=== PATIENT | male | born 1960 | race Caucasian/White ===

== ENCOUNTER 2022-09-13 21:37 | Emergency (ER) | payer OTHER, SELFPAY ==
[2022-09-13 21:42] VITALS: BP 130/86; PULSE 82; RESP 16; TEMP 36.7; O2SAT 98
[2022-09-13 21:45] VITALS: RESP 16; O2SAT 98
[2022-09-13] MEDS: predniSONE 10 MG TABLET 50 MG PO (22:12)
--- NOTE | 2022-09-13 22:13 | ED.GENADULT ---
HPI - General Adult General Chief complaint: Unspecified Complaint, Adult Stated complaint: gout Time Seen by Provider: 09/13/22 21:40 Source: patient Mode of arrival: ambulatory Limitations: no limitations History of Present Illness HPI narrative: 62-year-old male well known to me with a notable history of prior gout presents with a flare up of gout in the right 5th MTP joint. He has had flare-ups in this area in the past. I evaluated him in clinic about 6 months ago, uric acid levels and creatinine were normal at that time. The decision was made going on allopurinol would not be more beneficial. His symptoms improved markedly within 24 hours on prednisone, he continued it for the 5 days as recommended and symptoms have not returned since that time. Pain is constant and achy, becomes sharp with standing and with movement. Fifth MTP is red, hot and swollen. No trauma nor injury. He is systemically feels well, no fevers, no body aches, no other systemic worries. He has no other acute concerns today. Has not tried any other interventions to help with his pain. Past medical history is notable for what sounds like pericarditis this year after an ablation, seem to respond well colchicine per his description. He otherwise has a notable history of prior gout, AFib, hyperlipidemia. Medications are reviewed, consistent with known previous prescriptions. No recent surgeries. 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 ROS is notable for no other generalized, musculoskeletal, neurological, cardiovascular, endocrine concerns today. Related Data Home Medications Medication Instructions Recorded Confirmed apixaban 5 mg tablet (Eliquis) 5 mg PO 05/15/22 05/15/22 rosuvastatin 20 mg tablet 20 mg PO 05/15/22 05/15/22 sildenafil (pulm.hypertension) 20 20 mg PO 05/15/22 05/15/22 mg tablet Previous Rx's Medication Instructions Recorded azithromycin 250 mg tablet See Rx Instructions PO .COMPLEX #6 05/15/22 tabs codeine 10 mg-guaifenesin 100 mg/5 10 ml PO Q4-6H PRN cough #120 mL 05/15/22 mL oral liquid (Guaifenesin AC) prednisone 20 mg tablet 40 mg PO DAILY PRN #60 tabs 09/13/22 Allergies Allergy/AdvReac Type Severity Reaction Status Date / Time morphine Allergy Unknown Verified 05/02/22 11:03 [facility] Surgical History (Updated 09/13/22 @ 21:46 by Clemencia Garza RN) History of prior ablation treatment Social History Smoking Status: Never smoker How often do you have a drink containing alcohol: monthly or less AUDIT-C Alcohol total score: 1 Non-prescribed substance use: denies use Exam Const: Vital Signs, click to edit/add: Vital Signs - 24 hr 09/13/22 21:42 09/13/22 21:45 Temperature 98.1 F Pulse Rate [Left P ulse Oximeter] 82 Respiratory Rate 16 Respiratory Rate [ Right Foot] 16 Blood Pressure [Ri ght Upper Arm] 130/86 Pulse Oximetry 98 Oxygen Delivery Me thod Room Air Documenting provider has reviewed patient's vital signs: yes Common normals: no apparent distress General appearance: cooperative Eye: Other: Normal gaze and visual tracking Cardio: Other: Peripheral pulses seem regular, dorsalis pedis on right. Also with normal capillary refill Extremity: Other: Right ankle with normal range of motion, right 5th MTP joint red, warm, swollen, exquisitely tender. No deformity. Other joints of the foot appear grossly normal with normal range of motion. Normal toenails, no broken skin, trauma or injury. Neuro: Speech: speech normal Motor exam: no movement abnormalities noted Psych: Common normals: speech normal Speech: normal speech Insight: insight good Judgement: judgment good Skin: Common normals: no rashes or lesions noted General skin exam: no rashes or lesions noted Course Vital Signs Vital signs: Initial Vital Signs Temperature 98.1 F 09/13/22 21:42 Temperature Source Temporal Artery Scan 09/13/22 21:42 Pulse Rate 82 09/13/22 21:42 Respiratory Rate 16 09/13/22 21:42 Blood Pressure 130/86 09/13/22 21:42 Blood Pressure Mean 100 09/13/22 21:42 Blood Pressure Position Sitting 09/13/22 21:42 Pulse Oximetry 98 09/13/22 21:42 Oxygen Delivery Method 09/13/22 21:42 Vital Signs Temperature 98.1 F 09/13/22 21:42 Pulse Rate 82 09/13/22 21:42 Respiratory Rate 16 09/13/22 21:42 Blood Pressure 130/86 09/13/22 21:42 Pulse Oximetry 98 09/13/22 21:42 Oxygen Delivery Method 09/13/22 21:42 Temperature 98.1 F 09/13/22 21:42 Pulse Rate 82 09/13/22 21:42 Respiratory Rate 16 09/13/22 21:45 Blood Pressure 130/86 09/13/22 21:42 Pulse Oximetry 98 09/13/22 21:42 Oxygen Delivery Method 09/13/22 21:42 Medical Decision Making MDM Narrative Medical decision making narrative: Reviewed labs from summer, normal uric acid level with normal creatinine. Long documented history of prior gout with good response to prednisone. Recommended that we not repeat the labs, discussed risks and benefits of prednisone in the setting of Eliquis use. Short-term dosing intended for prednisone, benefit outweighs risk. Will dose prednisone 50 mg p.o. x1 and send additional supply of 20 mg of prednisone to complete 40 per day for an additional 4 days with subsequent refills and additional pills in the bottle 4 as needed flares. Discussed appropriate use. Okay to continue Tylenol, ice, elevation. Urgent care or clinic follow-up if not improving in 2 days Discharge Plan Discharge Clinical Impression: Gout attack Patient Disposition: Home, Self-Care Condition: Stable Instructions: Gout (ED) Additional Instructions: As we discussed, based on your previous labs and my previous evaluations of this problem and Clinic, I do not recommend that you go on a long-term medicine to prevent gout. I am glad that the prednisone always seems to improve your symptoms. We have started you on prednisone tonight, this will improve things markedly within 24 hours. I will send a prescription to your pharmacy for prednisone as well. Your likely to have a couple of these flares per year. There is a small chance of interaction with your blood thinners but this is temporary and the benefit greatly outweighs the risk. I do recommend that you continue to take Tylenol 1000 mg every 6 hours as needed for pain, apply ice and elevate as needed. With the prednisone, take 2 pills once daily for an additional 4 days, your next dose will be the early afternoon of the . The medicine may rev you up before bedtime, so try to take your subsequent doses in the afternoon rather than late at night. It is okay to take Tylenol p.m., which is basically just Benadryl or some [id number] melatonin tonight to help you sleep. If her symptoms are not improving markedly in 48 hours, re-evaluate at urgent care or call your clinic physician. The prescription of prednisone will give you a supply to last for multiple flares. Activity Level: Activity as Tolerated Discharge Diet: Regular Prescriptions: New prednisone 20 mg tablet 40 mg PO DAILY PRNQty: 60 1RF Rx Instructions: 2 pills once daily for 5 days as needed for gout flares. No Action rosuvastatin 20 mg tablet 20 mg PO Eliquis 5 mg tablet 5 mg PO Label Comments: STOP ASPIRIN. TAKE 1 TABLET BY MOUTH IN THE MORNING AND 1 IN THE EVENING sildenafil (pulm.hypertension) 20 mg tablet 20 mg PO Label Comments: TAKE 1 TO 5 TABLETS BY MOUTH NEEDED ABOUT 1 HOUR PRIOR TO SEX DO NOT EXCEED 5 TABLETS PER 24 HOURS azithromycin 250 mg tablet See Rx Instructions PO .COMPLEX Qty: 6 0RF Rx Instructions: For 250 mg dose pack: take 500 mg today (day 1), then 250 mg for 4 days (days 2-5) PO codeine-guaifenesin [Guaifenesin AC] 10-100 mg/5 mL liquid 10 ml PO Q4-6H PRN (Reason: cough) Qty: 120 0RF Follow Up/Referrals: Pam Hodge MD [Primary Care Provider] - Stand Alone Forms: [employer] Info Instructions
[2022-09-13 22:21] VITALS: BP 130/86; PULSE 82; RESP 16; TEMP 36.7
[2022-09-13 22:28] VITALS: BP 125/84; PULSE 82; RESP 16; TEMP 36.7; O2SAT 98
== END 2022-09-13 22:21 | disposition home or self-care (01) ==
LOC: ED 22:18
PROVIDERS: Emergency Provider Family Medicine
DX: M10.9 Gout, unspecified (principal)
CPT/HCPCS: 99282; 99283; 99284; J7512

== ENCOUNTER 2022-11-23 09:43 | Outpatient (CLI) | payer OTHER, SELFPAY | END 2022-11-23 09:44 | disposition home or self-care (01) | LOC: OP CLINIC 09:44 | PROVIDERS: PCP Family Medicine; Visit Provider Surgery | DX: Z13.810 Encounter for screening for upper gastrointestinal disorder (principal) | CPT/HCPCS: 43200; J2250; J3010 ==

== ENCOUNTER 2022-11-30 15:17 | Outpatient (CLI) | payer OTHER, SELFPAY | END 2022-11-30 15:18 | disposition home or self-care (01) | LOC: LONREF 15:19 | PROVIDERS: PCP Family Medicine; Visit Provider Family Medicine | DX: Z01.818 Encounter for other preprocedural examination (principal) | CPT/HCPCS: 80048 ==

== ENCOUNTER 2022-12-11 07:23 | Outpatient (CLI) | payer OTHER, SELFPAY ==
--- NOTE | 2022-12-11 10:19 | W.ANESCHARGE ---
Anesthesia Charges Start Date/Time Anesthesia Start Date: 12/11/22 Anesthesia Start Time: 08:25 Stop Date/Time Anesthesia Stop Date: 12/11/22 Anesthesia Stop Time: 08:40
== END 2022-12-11 07:24 | disposition home or self-care (01) ==
LOC: OP CLINIC 07:24
PROVIDERS: PCP Family Medicine; Visit Provider Internal Medicine
DX: K22.70 Barrett's esophagus without dysplasia (principal); K22.89 Other specified disease of esophagus; R13.10 Dysphagia, unspecified
CPT/HCPCS: 43239; 731; 88305; J2405; J2704; J3010

== ENCOUNTER 2023-11-24 14:12 | Outpatient (CLI) | payer MEDICARE, OTHER, SELFPAY | END 2023-11-24 14:13 | disposition home or self-care (01) | LOC: LKVREF 14:13 | PROVIDERS: PCP Family Medicine; Visit Provider Family Medicine | DX: Z01.818 Encounter for other preprocedural examination (principal) | CPT/HCPCS: 80048 ==

== ENCOUNTER 2024-04-19 08:34 | Outpatient (CLI) | payer MEDICARE, OTHER, SELFPAY ==
--- OUTSIDE RECORDS SUMMARY | 2024-04-19 15:21 | XMS_ITS | Clinical Summary ---
Author Organization [facility] Address [address] [place] [address]. [place] [address] Care Team Providers Care Biodiesel Division Manager Name Role Phone No Ref-Primary, Physician Primary Care Provider Allergies Active Allergy Reactions Criticality Noted Date Comments Morphine Nausea and Vomiting 08/23/2020 Medications Medication Sig Dispensed Refills Start Date End Date Status ammonium lactate (AMLACTIN) 12 % external creamIndications:Luis nilton Apply to calluses daily/twice daily as needed. 140 g 1 01/13/2019 Active Additional Information Patient not taking.Reported on 08/05/2020 atorvastatin (LIPITOR) 20 MG tablet daily Active aspirin (ASA) 325 MG tablet Take 325 mg by mouth every 24 hours Active tamsulosin (FLOMAX) 0.4 MG capsule Take 0.4 mg by mouth daily Active rosuvastatin (CRESTOR) 20 MG tablet Take 20 mg by mouth 05/08/2022 Activ e Hospital, Clinic, or Other Facility Administered Medication Ordered Dose Route Frequency Start Date End Date Status triamcinolone (KENALOG-40) injection 40 mgIndications:Chronic pain of right ankle 40 mg 08/05/2020 Active lidocaine 1 % injection 0.5 mLIndications:Chronic pain of right ankle .5 mL 08/05/2020 Active Active Problems No known active problems Social History Tobacco Use Types Packs/Day Years Used Date Smoking Tobacco: Never Smokeless Tobacco: Never Tobacco Cessation:Counseling Given: Yes Adolescent Education Answer Date Record ed Getting School Help Needed Not on file 06/22 Sex and Gender Information Value Date Recorded Sex Assigned at Not on file Gender Identity Not on file Sexual Orientation Not on file Last Filed Vital Signs Vital Sign Reading Time Taken Comments Blood Pressure 118/72 10/08/2022 1:56 PM [employer] Pulse - - Temperature - - Respiratory Rate - - Oxygen Saturation - - Inhaled Oxygen Concentration - - Weight 99.8 kg (220 lb) 10/08/2022 1:56 PM [employer] Height 180.3 cm (5' 11) 10/08/2022 1:56 PM [employer] Body Mass Index 30.68 10/08/2022 1:56 PM [employer] Plan of Treatment Health Maintenance Due Date Last Done Comments ADVANCE CARE PLANNING 1960 ANNUAL REVIEW OF HM ORDERS 1958 CT COLONOGRAPHY 1958 FIT 1958 FLEX SIG 1958 GLUCOSE 1958 LIPID 1958 sDNA (Cologuard) 1958 COLONOSCOPY 1968 COLORECTAL CANCER SCREENING 1968 HIV SCREENING 1973 HEPATITIS C SCREENING 1976 RSV VACCINE ( & 60+) (1 - 1-dose 60+ series) 2018 DTAP/TDAP/TD IMMUNIZATION (2 - Td or Tdap) 07/12/2022 07/12/2012 FALL RISK ASSESSMENT 2023 MEDICARE ANNUAL WELLNESS VISIT 2023 Pneumococcal Vaccine: 65+ Years (1 of 1 - PCV) 2023 COVID-19 Vaccine (3 - season) 2023 01/03/2021, 12/06/2020 PHQ-2 (once per calendar year) 2023 INFLUENZA VACCINE (#1) 2024 , 10/03/2019, 06/06/2019, Additional history exists ZOSTER IMMUNIZATION Completed 04/21/2022, 02/13/2022, 04/17/2013 HPV IMMUNIZATION Aged Out No longer e ligible based on patient's age to complete this topic IPV IMMUNIZATION Aged Out No longer e ligible based on patient's age to complete this topic MENINGITIS IMMUNIZATION Aged Out No l onger eligible based on patient's age to complete this topic RSV MONOCLONAL ANTIBODY Aged Out No l onger eligible based on patient's age to complete this topic Care Teams Biodiesel Division Manager Relationship Specialty Start Date End Date No Ref-Primary, Physician PCP - General 10/08/22
--- OUTSIDE RECORDS SUMMARY | 2024-04-19 15:21 | XMS_ITS | Clinical Summary ---
Author Organization [facility] Address [place], [place] [address] Care Team Providers Care Modeling Agent Name Role Phone Elbert Sloan MD Primary Care Provider [phone] Allergies Active Allergy Reactions Criticality Noted Date Comments Morphine Nausea And Vomiting 08/23/2020 Medications Medication Sig Dispensed Refills Start Date End Date Status acetaminophen (TYLENOL EXTRA STRGTH) 500 mg tablet Take 1,000 mg by mouth every 6 hours if needed. Max acetaminophen dose: 4000mg in 24 hrs. Active docusate (COLACE) 100 mg capsule Take 100 mg by mouth once daily. Active multivitamins-mineral s-lutein (Multivitamin 50 Plus) tab tablet Take 1 Tablet by mouth once daily. Active omeprazole (PRILOSEC-OTC) 20 mg tablet Take 20 mg by mouth once daily. Active aspirin (ECOTRIN) 81 mg enteric coated tablet Take 1 Tablet (81 mg) by mouth once daily. 0 10/15/2022 Active testosterone (AndroGeL) 20.25 mg/1.25 gram (1.62 %) glpm transdermal gelIndications:Low testosterone in male Apply 1 pump (20.25 mg) on dry, clean, hairless skin every morning. To clean, dry, intact skin of the shoulders and upper arms. Do NOT apply to any other parts of the body. 2 g 1 09/07/2023 Active rosuvastatin (CRESTOR) 40 mg tabletIndications:Hyp erlipidemia, unspecified hyperlipidemia type Take 1 Tablet (40 mg) by mouth once daily. 12/27/2023 Active Active Problems Problem Noted Date Diagnosed Date Benign prostatic hyperplasia with urinary obstru ction 08/29/2020 Presence of left artificial knee joint 8 Overview: Last Assessment & Plan: - Received right knee Gel One injection today, tolerated well (see procedure note) - RTC in 6 months for repeat injection if needed Last Assessment & Plan: 58 y.o. male with persistent pain ever since left knee replacement done at OSH. Preop knee xrays fairly benign. Knee pain never relieved after surgery. His inflammatory markers have never been elevated, including today. He did have an aspirate (also at an outside facility) that apparently grew MRSA. I do not think he has a knee infection and would remove this as a diagnosis. I think his ongoing knee pain is from another source completely, which explains why his knee xrays were not as bad as typical prior to surgery and why his pain did not go away after surgery. The most likely candidate is his spine. 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 08/12/2018 Overview: Last Assessment & Plan: - XR spine lumbar ordered, will review images with IR for further recommendations - Refilled gabapentin, may increase to 600 mg TID if needed otherwise take as prescibed DDD (degenerative disc disease), lumbar 12/23/19 18 Lumbar facet arthropathy 12/22/2017 Obstructive sleep apnea of adult 07/27/2012 Closed fracture of shaft of ulna 09/24/2008 Recurrent paroxysmal atrial fibrillation 008 Overview: S/P DCCV 10/17/07 Encounters Date Type Department Care Team Description 04/19/2024 Telephone [facility] [address] [facility] [address] [place] [address] Gem Whipple MD Results (LDL, lipid panel and ALT.) 04/13/2024 9:30 AM CDT Orders Only [facility] [address] [place] [address] Lab, [facility] 04/13/2024 Travel 01/31/2024 Telephone [facility] [address] [facility] [address] [place] [address] Gem Whipple NP Results (Stress echo ) 01/28/2024 9:29 AM CDT - 01/28/2024 11:59 PM CDT Hospital Encounter [facility] [address] [facility] [place] [address] Gem Whipple NP Left arm pain; Ascending aorta dilation (HC); Chest pain, unspecified type 01/28/2024 Travel from Last 3 Months Immunizations Name Administration Dates Next Due Influenza A (H1N1), Inactiva colt (Age >=3 Years) 07/23/2009 Influenza, IIV3 (Age 6-35 mos) 4,05/30/2013,05/26/2012,2010,07/03/2010,06/06/2009 Influenza, IIV3 (Age >=3 years) 07/02/2008,07/06 Influenza, IIV4 07/22/2020, 0,09/22/2018,2016,07/23/2015,07/23/2009 Influenza, Injectable, Mdck, Quadrivalent, W/preservative 06/06/2019 Influenza,CCIIV4 PRESERV FREE 07/23/2016 Tdap 07/12/2012 Zoster (Shingrix-RZV, recombinant) 04/21/2022, Zoster (Zostavax-ZVL, live) 04/17/2013 Family History Medical History Relation Name Comments Genetic Other multiple uncles prostate cancer~mother heart disease Relation Name Status Comments Other Social History Tobacco Use Types Packs/Day Years Used Date Smoking Tobacco: Never Smokeless Tobacco: Never Tobacco Cessation:Counseling Given: No Alcohol Use Standard Drinks/Week Comments Yes 0 (1 standard drink = 0.6 oz pur e alcohol) 3 drinks per week at most Social Connections Answer Date Recorded Frequency of Communication with Friends and Fami ly Not on file 04/21/2022 Sex and Gender Information Value Date Recorded Sex Assigned at Not on file Gender Identity Not on file Sexual Orientation Not on file Obstetrics History Last Filed Vital Signs Vital Sign Reading Time Taken Comments Blood Pressure 112/90 12/27/2023 11:48 AM CDT Pulse 82 12/27/2023 11:48 AM CDT Temperature 36.4 ??C (97.5 ??F) 12/26/2023 12:36 PM C DT Respiratory Rate 20 12/26/2023 12:36 PM CDT Oxygen Saturation 97% 12/27/2023 11:48 AM CDT Inhaled Oxygen Concentration - - Weight 107.5 kg (237 lb) 12/27/2023 11:48 AM CDT Height 180.3 cm (5' 11) 12/27/2023 11:48 AM CDT Body Mass Index 33.05 12/27/2023 11:48 AM CDT Plan of Treatment Upcoming Encounters Date Type Department Care Team (Late st Contact Info) Description 04/28/2024 12:00 PM CDT Office Visit [facility] [address] [place] [phone] Maria Esther Godwin [facility] [address] [place] [address] Health Maintenance Due Date Last Done Comments Depression screening for age 12+ 1970 HIV for age 15-65 1973 Hepatitis C screening for ag e 18-79 1976 Colonoscopy through age 75 2003 Tetanus booster 07/12/2022 07/12/2012 Medicare Wellness for age 65+ 2023 Pneumococcal series for age 65+ (1 of 1 - PCV) 2023 COVID-19 vaccine series (3 - 2022- season) 2023 01/03/2021, 12/06/2020 Influenza for age 65+ 05/21/2024 07/22/2020 , 10/03/2019, 06/06/2019, Additional history exists BMI (ht and wt on same day) for age 18+ 12/26/2024 12/27/2023, 01/28/2023, 10/15/2022, Additional history exists Lipids for age 45-75 04/13/2029 04/13/2024, 12/26/2023, 01/28/2023, Additional history exists Tdap Completed 07/12/2012 Zoster (shingles) series for age 50+ Completed 04/21/2022, 02/13/2022, 04/17/2013 Procedures Procedure Name Priority Date/Time Associated Diagnosis Comments ALT (SGPT) Routine 04/13/2024 9:44 AM CDT Hyperlipidemia, unspecified hyperlipidemia type LIPID PANEL W REFLEX MEASURED LDL Routine 04/13/2024 9:44 AM CDT Hyperlipidemia, unspecified hyperlipidemia type TESTOSTERONE,TOTAL Routine 04/13/2024 9: 44 AM CDT Low testosterone in male HEMATOCRIT Routine 04/13/2024 9:44 AM CDT Low testosterone in male PSA TOTAL (DIAGNOSTIC) Routine 04/13/2024 9:44 AM CDT Benign prostatic hyperplasia, unspecified whether lower urinary tract symptoms present ECHO STRESS EXRCSE W CONTRAST IMAGE ONLY W COLOR W LTD DOPPLER Routine 01/28/2024 10:33 AM CDT Left arm pain Ascending aorta dilation (HC) Chest pain, unspecified type SCAN-STRESS TEST 01/28/2024 12:0 0 AM CDT SCAN-STRESS TEST 01/28/2024 12:0 0 AM CDT from Last 3 Months Results * (ABNORMAL) LIPID PANEL W REFLEX MEASURED LDL (04/13/2024 9:44 AM CDT) CHOLESTEROL,TOTAL 148 100 - 199 mg/dL 04/13/2024 4:42 PM CDT [facility] Comment: Cholesterol, Total Reference Ranges Desirable <200 mg/dL Borderline 200-239 mg/dL High >=240 mg/dL TRIGLYCERIDES 161(H) <150 mg/dL 04/13/2024 4:42 PM CDT [facility] HDL CHOLESTEROL 47 >40 mg/dL 4:42 PM CDT [facility] NON-HDL CHOLESTEROL 101 <145 mg/dl 04/13/2024 4:42 PM CDT [facility] CHOL/HDL RATIO 3.15 <4.50 04/13/2024 4:42 PM CDT [facility] LDL CHOLESTEROL 69 <=130 mg/dL 04/13/2024 4:42 PM CDT [facility] VLDL CHOLESTEROL 32(H) <=30 mg/dL 04/13/2024 4:42 PM CDT [facility] PROVIDER ORDERED STATUS RANDOM 04/13/2024 4:42 PM CDT [facility] Blood BLOOD SPECIMEN / Unknown Venipuncture / Unknown 04/13/2024 9:44 AM CDT 04/13/2024 9:44 AM CDT Gem Whipple NP [facility]MI[facility] [address] [place] [address], [place] * HEMATOCRIT (04/13/2024 9:44 AM CDT) HEMATOCRIT 44.5 37.0 - 53.0 % 04/13/2024 9:48 AM CDT [facility] [place] [place] Blood BLOOD SPECIMEN / Unknown Venipuncture / Unknown 04/13/2024 9:44 AM CDT 04/13/2024 9:44 AM CDT Narrative [facility] [place] [place] - 04/13/2024 9:48 AM CDT This procedure was originally ordered at [facility] Maria Esther KIM HEMATOLOGY [facility] [place] [place] [address] [facility] [place] [address], * ALT (SGPT) (04/13/2024 9:44 AM CDT) Pathologist [facility] [place] ALT (SGPT) 21 10 - 50 IU/L 04/13/2024 4:42 PM CDT [facility] Blood BLOOD SPECIMEN / Unknown Venipuncture / Unknown 04/13/2024 9:44 AM CDT 04/13/2024 9:44 AM CDT Gem Whipple NP CHEMISTRY Performing Organization Address City/[facility]/ZIP Co de Phone Number [facility] [address] [place] [address], * TESTOSTERONE,TOTAL (04/13/2024 9:44 AM CDT) Pathologist [facility] [place] TESTOSTERONE,T OTAL 405.0 ng/dL 04/13/2024 5:59 PM CDT [facility] Blood BLOOD SPECIMEN / Unknown Venipuncture / Unknown 04/13/2024 9:44 AM CDT 04/13/2024 9:44 AM CDT Narrative [facility] - 04/13/2024 5:59 PM CDT ? TESTOSTERONE, TOTAL REFERENCE RANGES Age Range ? Female ?Male ?Units 20-50 years ? 8.4-48.1 ?249.0-836.0 ?? ng/dl 50-999 years ?2.9-40.8 ?193.0-740.0 ?? ng/dl Maria Esther KIM CHEMISTRY Performing Organization Address City/[facility]/ZIP Co de Phone Number [facility] [address] [place] [address], * PSA TOTAL (DIAGNOSTIC) (04/13/2024 9:44 AM CDT) Pathologist [facility] [place] PSA TOTAL (DIAGNOSTIC) 1.58 <4.00 ng/mL 04/13/2024 4:42 PM CDT [facility] Blood BLOOD SPECIMEN / Unknown Venipuncture / Unknown 04/13/2024 9:44 AM CDT 04/13/2024 9:44 AM CDT Narrative [facility] - 04/13/2024 4:42 PM CDT The test method changed on 03/16/2023. If this test has been used for serial monitoring, rebaselining is recommended. Rebaselining consists of 2 measurements, collected 3-6 weeks apart. The [employer] total PSA assay is an electrochemiluminescence immunoassay ECLIA performed on the [employer] Cody e immunoassay analyzers. Values obtained with different assay methods may be different and cannot be used interchangeably. Maria Esther BERNABE CHEMISTRY [facility] [address] [place] [address], [place] * ECHO STRESS EXRCSE W CONTRAST IMAGE ONLY W COLOR W LTD DOPPLER (01/28/2024 10:33 AM CDT) PEAK TR VELOCITY 2.2 m/s LVEDD 5.2 cm EJECTION FRACTION 60 - 65% Anatomical Region Laterality Modality Ultrasound, Ultr asound, Ultrasound, Computed Tomography 01/28/2024 9:55 AM CDT Narrative 01/28/2024 1:11 PM CDT STRESS ECHOCARDIOGRAM FIDENCIO ALMAZAN JR. ? Accession#: ?? [id number] : ?1960 63 years Study Date: ?? 01/28/2024 9:55:08 AM Gender: M ?BP: ? 117/83 mmHg Height: 180.00 cm ?BSA: ?2.27 m? ? ? Weight: 108.00 kg ?Tech: ? THG ? Referring MD: GEM WHIPPLE Site: ? [facility] Reading Location: [facility] Patient Location: Outpatient. Procedure: Stress Echo, Color Doppler, Limited Spectral Doppler and Contrast. Jose stress echo. Indication for study: Left Arm pain, Ascending Aorta Dil;ataion, Chest Pain Cardiac Rhythm: Normal sinus.Study quality: Final Impressions: 1. Maximum stress test with 97.9% of age predicted maximum heart rate achieved. 2. During stress exam the patient developed no significant symptoms. 3. There were no ischemic changes by EKG during stress. 4. Post stress, decreased left ventricular size, increased global systolic function with an estimated EF of >75%. 5. Echo contrast was administered to enhance visualization of all left ventricular segments. 6. Negative stress echo for ischemia. Stress Data: ? HR ?Systolic Diastolic Time Duration Minutes Seconds Baseline 75 bpm ?117 ?83 mmHg ?9 :21 ? Peak ? 151 bpm ?? 184 ?77 mmHg Max Pred HR ?154 % of Max ? 98% ?? Julian Treadmill Score 10 Double Product [id number] Echo Findings:This is a negative stress echo test for ischemia. Post stress, decreased left ventricular size, increased global systolic function with an estimated EF of >75%. LV regional wall motion abnormalities are not present post exercise. EKG:During exercise, the patient developed sinus tachycardia rhythm with normal conduction. There were no ischemic changes by EKG during stress. Exam Protocol:The patient presents with no significant symptoms at baseline. The patient exercised 9 min 21 sec to stage IV according to the Jose stress echo protocol. Test terminated due to Dyspnea. 13.5 METS were achieved. The patient achieved a heart rate of 151 bpm which is 97.9% of maximum predicted heart rate. Maximum systolic blood pressure was 184 [place] [address]. Maximum stress test with 97.9% of age predicted maximum heart rate achieved. The blood pressure response was normal. The patient developed no significant symptoms during the stress exam. Low (less than 1% annual mortality rate) non invasive risk stratification. Exercise stress test Julian Treadmill Score of 10. Chamber Sizes and Function Normal left ventricular size, normal global systolic function with an estimated EF of 60 - 65%. LV regional wall motion abnormalities are not present. The sinus of Valsalva is normal for age/sex/bsa. The ascending aorta is normal for age/sex/bsa. Valves, RV Pressures and Diastolic Function The aortic valve is normal in structure and trileaflet, no stenosis and no regurgitation. The mitral valve is normal in structure, no mitral regurgitation. The tricuspid valve is normal in structure. Tricuspid regurgitation is trace. The tricuspid regurgitant velocity is 2.2 m/s, the estimated right ventricular systolic pressure is 20 mmHg plus right atrial pressure. The pulmonic valve is normal. No pulmonic regurgitation is present on color flow. MEASUREMENTS AND CALCULATIONS 2-D Measurements and LV Function: LVID (d) 5.2 cm LV FS% (2D) 30 % LVID (s) 3.6 cm HR ?75 bpm IVS (d) ??1.0 cm LVPW (d) 1.2 cm Ao Sinus 3.8 cm Asc Ao ?? 3.9 cm LA ? 4.3 cm Tricuspid Valve and estimated PA pressures: TR Vmax 2.2 m/s TR maxG 20 mmHg Contrast documentation: 2.0 ml diluted Definity, lot #[id number] was administered peripherally to enhance visualization of all left ventricular segments. . This study was interpreted by an [facility] accredited facility. ??Final ?? Procedure Note Ricco Mittal MD - 01/28/2024 STRESS ECHOCARDIOGRAM FIDENCIO ALMAZAN JR. : 1960 63 years Study Date: 01/28/2024 9:55:08 AM Gender: M BP: 117/83 mmHg Height: 180.00 cm BSA: 2.27 m? ? ? Weight: 108.00 kg Tech: [facility] Referring MD: GEM WHIPPLE Site: [facility] Reading Location: [facility] Patient Location: Outpatient. Procedure: Stress Echo, Color Doppler, Limited Spectral Doppler andContrast. Jose stress echo. Indication for study: Left Arm pain, Ascending Aorta Dil;ataion, ChestPain Cardiac Rhythm: Normal sinus.Study quality: Final Impressions: 1. Maximum stress test with 97.9% of age predicted maximum heart rateachieved. 2. During stress exam the patient developed no significant symptoms. 3. There were no ischemic changes by EKG during stress. 4. Post stress, decreased left ventricular size, increased globalsystolic function with an estimated EF of >75%. 5. Echo contrast was administered to enhance visualization of all leftventricular segments. 6. Negative stress echo for ischemia. Stress Data: HR Systolic Diastolic Time Duration Minutes Seconds Baseline 75 bpm 117 83 mmHg 9 :21 Peak 151 bpm 184 77 mmHg Max Pred HR 154 % of Max 98% Julian Treadmill Score 10 Double Product [id number] Echo Findings:This is a negative stress echo test for ischemia. Poststress, decreased left ventricular size, increased global systolicfunction with an estimated EF of >75%. LV regional wall motionabnormalities are not present post exercise. EKG:During exercise, the patient developed sinus tachycardia rhythm withnormal conduction. There were no ischemic changes by EKG during stress. Exam Protocol:The patient presents with no significant symptoms atbaseline. The patient exercised 9 min 21 sec to stage IV according to [facility] stress echo protocol. Test terminated due to Dyspnea. 13.5 METS wereachieved. The patient achieved a heart rate of 151 bpm which is 97.9% ofmaximum predicted heart rate. Maximum systolic blood pressure was 184 [place] [address]. Maximum stress test with 97.9% ofage predicted maximum heart rate achieved. The blood pressure response wasnormal. The patient developed no significant symptoms during the stressexam. Low (less than 1% annual mortality rate) non invasive riskstratification. Exercise stress test Julian Treadmill Score of 10. Chamber Sizes and Function Normal left ventricular size, normal global systolic function with anestimated EF of 60 - 65%. LV regional wall motion abnormalities are notpresent. The sinus of Valsalva is normal for age/sex/bsa. The ascendingaorta is normal for age/sex/bsa. Valves, RV Pressures and Diastolic Function The aortic valve is normal in structure and trileaflet, no stenosis and noregurgitation. The mitral valve is normal in structure, no mitralregurgitation. The tricuspid valve is normal in structure. Tricuspidregurgitation is trace. The tricuspid regurgitant velocity is 2.2 m/s, theestimated right ventricular systolic pressure is 20 mmHg plus right atrialpressure. The pulmonic valve is normal. No pulmonic regurgitation ispresent on color flow. MEASUREMENTS AND CALCULATIONS 2-D Measurements and LV Function: LVID (d) 5.2 cm LV FS% (2D) 30 % LVID (s) 3.6 cm HR 75 bpm IVS (d) 1.0 cm LVPW (d) 1.2 cm Ao Sinus 3.8 cm Asc Ao 3.9 cm LA 4.3 cm Tricuspid Valve and estimated PA pressures: TR Vmax 2.2 m/s TR maxG 20 mmHg Contrast documentation: 2.0 ml diluted Definity, lot #[id number] wasadministered peripherally to enhance visualization of all left ventricularsegments. . This study was interpreted by an [facility] accredited facility. Final Gem Whipple NP ECHO ORD * SCAN-STRESS TEST (01/28/2024 12:00 AM CDT) Only the most recent of2 resultswithin the time period is included. Anatomical Region Laterality Modality Ultrasound, Ultr asound, Ultrasound, Computed Tomography Narrative 01/28/2024 12:00 AM CDT Ordered by an unspecified provider. Other Clinical Staff OTHER from Last 3 Months Advance Directives * Full Code (Latest Code Status on File) Date Activated Date Inactivated Comments 05/22/2022 11:37 AM 05/23/2022 4:23 PM Question Answer Comments Code Status Discussion: Reviewed Preferences * Full Code Date Activated Date Inactivated Comments 12/24/2020 7:53 AM 12/25/2020 4:26 PM Question Answer Comments Code Status Discussion: Not Discussed * Full Code Date Activated Date Inactivated Comments 08/28/2020 10:12 AM 08/28/2020 6:18 PM Question Answer Comments Code Status Discussion: Not Discussed Care Teams Modeling Agent Relationship Specialty Start Date End Date Elbert Sloan MD [address] [place] [address] PCP - General Family Practice 01/26/24
--- OUTSIDE RECORDS SUMMARY | 2024-04-19 15:21 | XMS_ITS | Referral Summary ---
Author Organization [facility] Address [address] [place] [address]. [place] [address] Care Team Providers Care Compliance Tester Name Role Phone No Ref-Primary, Physician Primary [...] Comments Blood Pressure 118/72 10/08/2022 1:56 PM PRODUCE SHIPPER Pulse - - Temperature - - Respiratory Rate - - Oxygen Saturation - - Inhaled Oxygen Concentration - - Weight 99.8 kg (220 lb) 10/08/2022 1:56 PM PRODUCE SHIPPER Height 180.3 cm (5' 11) 10/08/2022 1:56 PM PRODUCE SHIPPER Body Mass Index 30.68 10/08/2022 1:56 PM PRODUCE SHIPPER Plan of Treatment Not on file Care Teams Compliance Tester Relationship Specialty Start Date End Date No Ref-Primary, Physician PCP - General 10/08/22
== END 2024-04-19 08:35 | disposition home or self-care (01) ==
LOC: NFLDREF 15:18
PROVIDERS: PCP Family Medicine; Referring Provider Family Medicine; Visit Provider Family Medicine
DX: E29.1 Testicular hypofunction (principal); E78.00 Pure hypercholesterolemia, unspecified; D64.9 Anemia, unspecified; Z13.0 Encounter for screening for diseases of the blood and blood-forming organs and certain disorders involving the immune mechanism
CPT/HCPCS: 80061; 84270; 84402; 84403

== ENCOUNTER 2024-06-04 20:43 | Emergency (ER) | payer MEDICARE, OTHER, SELFPAY ==
[2024-06-04 20:58] VITALS: BP 163/91; PULSE 119; RESP 18; TEMP 37.1; O2SAT 98; BMI 33.2
[2024-06-04 21:23] VITALS: BP 150/75; PULSE 110; RESP 16; TEMP 37.1
--- NOTE | 2024-06-04 21:23 | ED.GENADULT ---
HPI - General Adult General Date Seen: 06/04/24 Chief complaint: Extremity Pain/Injury, Upper Stated complaint: right index finger infection Time Seen by Provider: 06/04/24 20:55 Source: patient, RN notes reviewed and old records reviewed Mode of arrival: ambulatory Limitations: no limitations History of Present Illness HPI narrative: Patient is a 64-year-old male here for evaluation of his left 2nd finger. He has been having problems for couple of days, was seen in clinic originally, diagnosed with a paronychia min started on Keflex. He was seen in urgent care earlier today because he was not improving, he does have a history of gout and was started on prednisone because the thought was maybe he was not getting better because this was actually gout. He presents to the ER tonight saying that the pain is just not improving. No fevers or systemic complaints. No trauma to the finger. Had x-rays today which were unremarkable. Related Data Home Medications ?Medication ?Instructions ?Recorded ?Confirmed sildenafil (pulm.hypertension) 20 20 mg PO 05/15/22 06/04/24 mg tablet aspirin 325 mg tablet 325 mg PO QDAY 11/30/22 06/04/24 omeprazole 20 mg capsule,delayed 20 mg PO .Daily 12/10/22 06/04/24 release testosterone 1 pump topical QDAY 11/24/23 06/04/24 Previous Rx's ?Medication ?Instructions ?Recorded rosuvastatin 40 mg tablet 40 mg PO QDAY #90 tabs 08/20/23 cephalexin 500 mg capsule 500 mg PO TID 7 days #21 caps 06/02/24 prednisone 20 mg tablet 40 mg (2 x 20 mg) PO QDAY 5 days 06/04/24 #10 tabs Allergies Allergy/AdvReac Type Severity Reaction Status Date / Time morphine Allergy Unknown Verified 06/02/24 17:26 [facility] Surgical History S/P TURP ?Z90.79 - Acquired absence of other genital organ(s) (ICD-10) S/P total knee arthroplasty ?Z96.659 - Presence of unspecified artificial knee joint (ICD-10) History of Marie fundoplication (09/03/10) ?Z98.890 - Other specified postprocedural states (ICD-10) History of arthroscopy of knee (12/22/11) ?Z98.890 - Other specified postprocedural states (ICD-10) History of arthroscopic surgery of shoulder ?Z98.890 - Other specified postprocedural states (ICD-10) History of prior ablation treatment ?Z98.890 - Other specified postprocedural states (ICD-10) Status post catheter ablation of atrial fibrillation ?Z98.890 - Other specified postprocedural states (ICD-10) Social History Smoking Status: Never smoker How often do you have a drink containing alcohol: monthly or less AUDIT-C Alcohol total score: 1 Non-prescribed substance use: denies use Little interest or pleasure in doing things: not at all Feeling down, depressed, or hopeless: not at all Exam Narrative: Exam Narrative: Vital signs reviewed, mildly tachycardic, possibly pain related. In general, alert, well-appearing an. Extremities: Examination of the left 2nd finger shows a paronychia, there is a little bit of erythema extending about to the D IP joint on that finger, purulence noted along the eponychium. Const: Vital Signs, click to edit/add: Vital Signs - 24 hr 06/04/24 20:58 Temperature 98.8 F Pulse Rate [Pulse Oximeter] 119 H Respiratory Rate 18 Blood Pressure [Le ft Upper Arm] 163/91 H Pulse Oximetry 98 Oxygen Delivery Me thod Room Air Documenting provider has reviewed patient's vital signs: yes Course Course ED Course: Procedure note: I used a topical anesthetic spray over the area and then incised with a #10 blade. A fair amount of pus was expressed, he tolerated this well, bandage was applied. Would recommend that he continue the Keflex given that there is a little bit of erythema extending out from this. Would expect this to gradually improve over the next 48-72 hours. Return for significant worsening or new symptoms such as fever, chills etcetera. See clinic next week if not noting improvement after 48-72 hours. Vital Signs Vital signs: Initial Vital Signs Temperature 98.8 F 06/04/24 20:58 Temperature Source Temporal Artery Scan 06/04/24 20:58 Pulse Rate 119 H 06/04/24 20:58 Respiratory Rate 18 06/04/24 20:58 Blood Pressure 163/91 H 06/04/24 20:58 Blood Pressure Mean 115 H 06/04/24 20:58 Blood Pressure Position Sitting 06/04/24 20:58 Pulse Oximetry 98 06/04/24 20:58 Oxygen Delivery Method Room Air 06/04/24 20:58 Vital Signs Temperature 98.8 F 06/04/24 20:58 Pulse Rate 119 H 06/04/24 20:58 Respiratory Rate 18 06/04/24 20:58 Blood Pressure 163/91 H 06/04/24 20:58 Pulse Oximetry 98 06/04/24 20:58 Oxygen Delivery Method Room Air 06/04/24 20:58 Temperature 98.8 F 06/04/24 20:58 Pulse Rate 119 H 06/04/24 20:58 Respiratory Rate 18 06/04/24 20:58 Blood Pressure 163/91 H 06/04/24 20:58 Pulse Oximetry 98 06/04/24 20:58 Oxygen Delivery Method Room Air 06/04/24 20:58 Discharge Plan Discharge Clinical Impression: Paronychia of finger Patient Disposition: Home, Self-Care Condition: Improved Instructions: Paronychia (ED) Additional Instructions: Complete your antibiotic as prescribed. Bandage over finger while this heals. For significant worsening redness or swelling, pain, new symptoms such as fever, return at any time. Otherwise anticipate gradual improvement over the next 48-72 hours. Prescriptions: No Action sildenafil (pulm.hypertension) 20 mg tablet 20 mg PO Patient Comments: TAKE 1 TO 5 TABLETS BY MOUTH NEEDED ABOUT 1 HOUR PRIOR TO SEX DO NOT EXCEED 5 TABLETS PER 24 HOURS cephalexin 500 mg capsule 500 mg PO TID 7 Days Qty: 21 0RF aspirin 325 mg tablet 325 mg PO QDAY testosterone 20.25 mg/1.25 gram (1.62 %) gel in metered-dose pump 1 pump topical QDAY Rx Instructions: apply 1 pump amount over max area of ONE upper arm and shoulder prednisone 20 mg tablet 40 mg PO QDAY 5 Days Qty: 10 0RF omeprazole 20 mg capsule,delayed release(DR/EC) 20 mg PO .Daily rosuvastatin 40 mg tablet 40 mg PO QDAY Qty: 90 3RF Follow Up/Referrals: Elbert Sloan MD [Primary Care Provider] - Stand Alone Forms: [facility] Info Instructions
== END 2024-06-04 21:24 | disposition home or self-care (01) ==
LOC: ED 21:18
PROVIDERS: Emergency Provider Emergency Medicine; PCP Family Medicine
DX: L03.011 Cellulitis of right finger (principal)
CPT/HCPCS: 10060; 84550; 99283

== ENCOUNTER 2024-06-09 14:35 | Emergency (ER) | payer MEDICARE, OTHER, SELFPAY ==
[2024-06-09 14:40] VITALS: BP 130/79; PULSE 89; RESP 14; TEMP 36.6; O2SAT 98; BMI 31.4
--- NOTE | 2024-06-09 14:57 | ED.GENADULT ---
HPI - General Adult General Chief complaint: Skin/Abscess/Foreign Body Stated complaint: L pointer finger infection Time Seen by Provider: 06/09/24 14:46 Source: patient Mode of arrival: ambulatory Limitations: no limitations History of Present Illness HPI narrative: 64-year-old male coming in today concerned about paronychia. Patient had paronychia approximately week ago where he had the area indeed and he was put on Keflex. He is still on Keflex today. States that he was doing well until about 12 hours ago when the swelling and pain returned. He denies any systemic symptoms. Related Data Home Medications ?Medication ?Instructions ?Recorded ?Confirmed sildenafil (pulm.hypertension) 20 20 mg PO Q24H 05/15/22 06/09/24 mg tablet aspirin 325 mg tablet 325 mg PO QDAY 11/30/22 06/09/24 omeprazole 20 mg capsule,delayed 20 mg PO .Daily 12/10/22 06/09/24 release testosterone 1 pump topical QDAY 11/24/23 06/09/24 Previous Rx's ?Medication ?Instructions ?Recorded rosuvastatin 40 mg tablet 40 mg PO QDAY #90 tabs 08/20/23 sulfamethoxazole 800 1 tab PO BID 7 days #14 tabs 06/09/24 mg-trimethoprim 160 mg tablet (Bactrim DS) Allergies Allergy/AdvReac Type Severity Reaction Status Date / Time morphine Allergy Unknown Verified 06/02/24 17:26 Review of Systems Status of ROS: Reports: 6 or more systems reviewed and unremarkable except as noted in History and below PFSH PFSH Surgical History S/P TURP ?Z90.79 - Acquired absence of other genital organ(s) (ICD-10) S/P total knee arthroplasty ?Z96.659 - Presence of unspecified artificial knee joint (ICD-10) History of Marie fundoplication (09/03/10) ?Z98.890 - Other specified postprocedural states (ICD-10) History of arthroscopy of knee (12/22/11) ?Z98.890 - Other specified postprocedural states (ICD-10) History of arthroscopic surgery of shoulder ?Z98.890 - Other specified postprocedural states (ICD-10) History of prior ablation treatment ?Z98.890 - Other specified postprocedural states (ICD-10) Status post catheter ablation of atrial fibrillation ?Z98.890 - Other specified postprocedural states (ICD-10) Social History Smoking Status: Never smoker How often do you have a drink containing alcohol: monthly or less AUDIT-C Alcohol total score: 1 Non-prescribed substance use: denies use Little interest or pleasure in doing things: not at all Feeling down, depressed, or hopeless: not at all Exam Narrative: Exam Narrative: Well-nourished well-developed patient in no acute distress. Alert and oriented. Answers questions appropriately. Mood and affect are appropriate. Thoughts are goal oriented and rational. No tangential or magical thinking noted. Patient speaks in full sentences without needing to catch his breath. Patient is not appear ill or toxic. HEENT: Normocephalic atraumatic. Pupils are equally round reactive to light. Extraocular muscles are intact. Conjunctivae are moist without any icterus noted. Moist mucous membranes. Extremities: Patient has paronychia of the 2nd digit on the left hand. He has erythema surrounding the nail but does not extend into the PIP joint. He has a pocket with clear fluid noted along the eponychium. Const: Vital Signs, click to edit/add: Vital Signs - 24 hr 06/09/24 14:40 Temperature 97.9 F Pulse Rate [Femora l] 89 Respiratory Rate 14 Blood Pressure [Ri ght Upper Arm] 130/79 Pulse Oximetry 98 Oxygen Delivery Me thod Room Air Course Course ED Course: Eleven blade was inserted into the pocket, no purulent drainage noted. Vital Signs Vital signs: Initial Vital Signs Temperature 97.9 F 06/09/24 14:40 Temperature Source Temporal Artery Scan 06/09/24 14:40 Pulse Rate 89 06/09/24 14:40 Pulse Rhythm Regular 06/09/24 14:40 Respiratory Rate 14 06/09/24 14:40 Blood Pressure 130/79 06/09/24 14:40 Blood Pressure Mean 96 06/09/24 14:40 Blood Pressure Position Sitting 06/09/24 14:40 Pulse Oximetry 98 06/09/24 14:40 Oxygen Delivery Method Room Air 06/09/24 14:40 Vital Signs Temperature 97.9 F 06/09/24 14:40 Pulse Rate 89 06/09/24 14:40 Respiratory Rate 14 06/09/24 14:40 Blood Pressure 130/79 06/09/24 14:40 Pulse Oximetry 98 06/09/24 14:40 Oxygen Delivery Method Room Air 06/09/24 14:40 Temperature 97.9 F 06/09/24 14:40 Pulse Rate 89 06/09/24 14:40 Respiratory Rate 14 06/09/24 14:40 Blood Pressure 130/79 06/09/24 14:40 Pulse Oximetry 98 06/09/24 14:40 Oxygen Delivery Method Room Air 06/09/24 14:40 Medical Decision Making MDM Narrative Medical decision making narrative: Paronychia. Will change patient's treatment to Bactrim DS p.o. b.i.d. for 7 days. No pus for us to do a wound culture at this time. Return if not improving. Discharge Plan Discharge Clinical Impression: Paronychia Patient Disposition: Home, Self-Care Condition: Stable Additional Instructions: Switch antibiotic and start with your 1st dose this evening. Return to the ER if you feel like you are getting worse over the next 48 hours instead of getting better. Prescriptions: New sulfamethoxazole-trimethoprim [Bactrim DS] 800-160 mg tablet 1 tab PO BID 7 Days Qty: 14 0RF No Action sildenafil (pulm.hypertension) 20 mg tablet 20 mg PO Q24H Patient Comments: TAKE 1 TO 5 TABLETS BY MOUTH NEEDED ABOUT 1 HOUR PRIOR TO SEX DO NOT EXCEED 5 TABLETS PER 24 HOURS aspirin 325 mg tablet 325 mg PO QDAY testosterone 20.25 mg/1.25 gram (1.62 %) gel in metered-dose pump 1 pump topical QDAY Rx Instructions: apply 1 pump amount over max area of ONE upper arm and shoulder omeprazole 20 mg capsule,delayed release(DR/EC) 20 mg PO .Daily rosuvastatin 40 mg tablet 40 mg PO QDAY Qty: 90 3RF Follow Up/Referrals: Elbetr Sloan MD [Primary Care Provider] - Stand Alone Forms: [facility] Info Instructions
--- OUTSIDE RECORDS SUMMARY | 2024-06-09 15:12 | XMS_ITS | Data Portability ---
Author Organization [facility], [facility] Address [address] [place] [address] Care Team Providers Care Web Offset Press Feeder Name Role Phone ALLEN SUH Primary Care Provider Assessment No assessment recorded. Plan of Treatment Reminders Order Date Submit Date Provider Last Modified By Organization Details Last Modified Time Details Appointments None recorded. Lab PSA, serum or plasma 2020 021 LIZET Not available 1 08:57:40 urinalysis, dipstick 2021 022 [email or web address] 1 Not available 2 14:43:00 PSA, serum or plasma 2021 022 [email or web address] 1 Not available 2 14:43:00 urinalysis, dipstick 2022 023 [email or web address] [facility], [address], [place], [address], 3 15:38:49 urinalysis, dipstick 2022 023 ssamb [facility], [address], [place], [address], 3 12:39:06 PSA, serum or plasma 2023 024 [email or web address] [facility], [address], [place], [address], 4 15:58:04 Referral None recorded. Procedures None recorded. Surgeries None recorded. Imaging None recorded. Medication Orders sildenafil (pulmonary hypertensio n) 20 mg tablet 2021 022 [facility], [address] [facility], [place], [address], 2 14:43:07 Gemtesa 75 mg tablet 2021 022 [facility] [address], [address] [facility], [place], [address], 3 15:36:33 sildenafil (pulmonary hypertensio n) 20 mg tablet 2022 023 [facility] [address], [address] [facility], [place], [address], 3 16:49:26 Gemtesa 75 mg tablet 2022 023 [facility] [address], [address] [facility], [place], [address], 3 12:59:36 Patient TargetsNo targets recorded. Patient InstructionsNo instructions recorded. Reason for Referral None Reported. Results Created Date Observation Date Name Description Value Unit Range Abnormal Flag Note LastModifiedBy Organization Detail LastModifiedTime 06/10/2006/10/2021 PSA, serum or plasm a PSA, Total 1.3 ng/mL Not Available [facility] [address], [place], [address], 06/09/2021 16:17:01 12/03/19 22 12/02/2021 PSA, serum or plasm a PSA, Total 1.3ng/ mL Not Available [facility] [address], [place], [address], 12/02/2021 14:42:25 12/03/19 22 12/02/2021 urina lysis , dipst ick Color-Status Yellow Not Available [facility] [address], [place], [address], 12/02/2021 14:41:29 12/03/19 22 12/02/2021 urina lysis , dipst ick Clarity-Stat us Clear Not Available [facility] [address], [place], [address], 12/02/2021 14:41:29 12/03/19 22 12/02/2021 urina lysis , dipst ick Glucose-Stat us Negati ve Not Available [facility] [address], [place], [address], 12/02/2021 14:41:29 12/03/19 22 12/02/2021 urina lysis , dipst ick Bilirubin-St atus Negati ve Not Available [facility] [address], [place], [address], 12/02/2021 14:41:29 12/03/19 22 12/02/2021 urina lysis , dipst ick Ketones-Stat us Negati ve Not Available [facility] [address], [place], [address], 12/02/2021 14:41:29 12/03/19 22 12/02/2021 urina lysis , dipst ick Sp Lattimore-Stat us 1.025 Not Available [facility] [address], [place], [address], 12/02/2021 14:41:29 12/03/19 22 12/02/2021 urina lysis , dipst ick pH-Status 5.5 Not Available [facility] [address], [place], [address], 12/02/2021 14:41:29 12/03/19 22 12/02/2021 urina lysis , dipst ick Urobilinogen -Status 0.2 Not Available [facility] [address], [place], [address], 12/02/2021 14:41:29 12/03/19 22 12/02/2021 urina lysis , dipst ick Nitrates-Sta tus negati ve Not Available [facility] [address], [place], [address], 12/02/2021 14:41:29 12/03/19 22 12/02/2021 urina lysis , dipst ick Blood-Status Trace Not Available [facility] [address], [place], [address], 12/02/2021 14:41:29 12/03/19 22 12/02/2021 urina lysis , dipst ick Leuko-Status Negati ve Not Available [facility] [address], [place], [address], 12/02/2021 14:41:29 12/03/19 22 12/02/2021 urina lysis , dipst ick Specimen Type Voided Not Available [facility] [address], [place], [address], 12/02/2021 14:41:29 10/29/19 23 10/29/2022 urina lysis , dipst ick Color-Status Yellow Not Available [facility] [address], [place], [address], 10/29/2022 15:38:28 10/29/19 23 10/29/2022 urina lysis , dipst ick Clarity-Stat us Clear Not Available [facility] [address], [place], [address], 10/29/2022 15:38:28 10/29/19 23 10/29/2022 urina lysis , dipst ick pH-Status 6.5 Not Available [facility] [address], [place], [address], 10/29/2022 15:38:28 12/08/19 23 12/07/2022 urina lysis , dipst ick Color-Status Yellow Not Available [facility] [address], [place], [address], 12/07/2022 12:38:45 12/08/19 23 12/07/2022 urina lysis , dipst ick Clarity-Stat us Clear Not Available [facility] [address], [place], [address], 12/07/2022 12:38:45 12/08/19 23 12/07/2022 urina lysis , dipst ick pH-Status 6.0 Not Available [facility] [address], [place], [address], 12/07/2022 12:38:45 02/21/20 24 02/21/2024 PSA, serum or plasm a PSA 1.8 ng/mL 0-4.0 NG/mL Not Available [facility] [address], [place], [address], 02/21/2024 15:30:48 06/17/20 21 06/09/2021 bladd er scan (PROC ) No observ ation record ed. BARCODE Not Available 2020 18:19:09 12/10/19 23 12/07/2022 bladd er scan (PROC ) No observ ation record ed. BARCODE Not Available 2022 17:49:01 Result Notes None recorded. Problems Name Problem SNOMED Code Status Onset Date Resolution Date Notes Provider Name and Address Organization Details Recorded Time Prostate specific antigen above reference range 479801063 Completed 202006/09/2021 Daphney patrikc [place] - [facility] 16:16:23 Benign prostatic hyperplas ia with outflow obstructi on 110590703 Active 2020 Daphney patrick [facility] 1 16:16:33 Obstructi ve sleep apnea of adult 228540862119 3 Active 2011 Sánchez patrick [facility] 4 15:29:43 Degenerat ion of lumbar intervert ebral disc 06173172 Active 2017 Sánchez patrick [facility] 4 15:29:43 Arthropat hy of lumbar facet joint 774779127 Active 2017 Mendez Henri patrick [facility] 4 15:29:43 Atrial fibrillat ion 67540777 Active 2007 Mendez Henri patrick [facility] 4 15:29:43 Problem Notes None recorded. Procedures Surgical History Date Name Laterality Status Provider Name and Address Organization Details Recorded Time 02/21/20 24 MANAGER OF ORGANIZATIONAL DEVELOPMENT/blood draw completed Sánchez Álvarez [facility] 02/21/2024 15:30:42 12/08/19 23 Bladder Scan completed Ricco White [facility] 12/07/2022 12:38:40 10/29/19 23 Bladder Scan completed Rhina Kline PA-C [address], [address], [facility] 10/29/2022 15:51:07 12/03/19 22 Bladder Scan completed Liz Boyd [facility] 12/02/2021 14:43:15 12/03/19 22 Blood Draw/MANAGER OF ORGANIZATIONAL DEVELOPMENT/PSA RESULTS completed Liz Boyd [facility] 12/02/2021 14:50:43 06/09/20 21 Bladder Scan completed Daphney Pak [facility] 06/09/2021 16:16:56 03/31/20 21 Bladder Scan completed Jessica Oconnor [facility] 03/31/2021 16:40:16 01/29/20 21 Bladder Scan completed Mt Marroquin MD [address], [place], [address], [facility] 01/28/2021 15:53:39 12/25/19 21 TRANSURETHRAL RESECTION OF PROSTATE (SURG) completed Magdalena Ray [facility] 12/25/2020 08:36:37 12/25/19 21 TRANSURETHRAL RESECTION OF PROSTATE (SURG) completed Eri Currie [facility] 12/26/2020 09:51:51 12/04/19 21 Cystoscopy- male completed Mt Marroquin MD [address], [place], [address], [facility] 12/03/2020 10:19:56 11/30/19 21 Bladder Scan completed Liz Boyd [facility] 11/29/2020 15:05:15 06/06/20 20 Cystoscopy- male completed Magan Montejo MD [address], [place], [address], [facility] 06/06/2020 17:43:19 02/15/20 19 Colonoscopy completed Francisca Strong [facility] 06/24/2021 15:03:44 05/09/20 07 Colonoscopy completed Magdalena Ray [facility] 2021 09:27:33 Imaging Results Imaging Date Name Status LastModified by Organiz ation Details LastModified Time 06/09/2021 bladder scan (PROC) completed BARCODE Information not available 06/17/2021 18:19:09 12/07/2022 bladder scan (PROC) completed BARCODE Information not available 12/09/2022 17:49:01 Procedure Notes None recorded. Medical Equipment None Reported. Allergies No known drug allergies Medications Name Sig Start Date Stop Date Status Note LastModified by Organization Details LastModified Time tolterodine ER 2 mg capsule,ext ended release 24 hr TAKE 1 CAPSULE BY MOUTH ONCE DAILY 03/31 completed Not Available Not Available Not Available cyclobenzap rine 10 mg tablet TAKE 1 TABLET BY MOUTH THREE TIMES DAILY NEEDED 12/02 completed Not Available Not Available Not Available acetaminoph en 325 mg tablet 0 mg by oral route. 2020 active Not Available Not Available Not Avai lable oxybutynin chloride ER 15 mg tablet,exte nded release 24 hr Take 1 tablet every day by oral route for 30 days. 10/29 completed Not Available Not Available Not Available doxycycline hyclate 100 mg capsule TAKE 1 CAPSULE BY MOUTH TWICE DAILY 02/20 completed Not Available Not Available Not Available atorvastati n 20 mg tablet TAKE 1 TABLET BY MOUTH ONCE DAILY AT BEDTIME 12/02 completed Not Available Not Available Not Available oxybutynin chloride ER 10 mg tablet,exte nded release 24 hr 03/31 completed Not Available Not Available Not Available azithromyci n 250 mg tablet TAKE 2 TABLETS BY MOUTH ON DAY 1, AND 1 TABLET DAILY ON DAYS 2-5 10/29 completed Not Available Not Available Not Available aspirin 325 mg tablet Take 1 tablet every day by oral route. active Not Available Not Available No t Available hydrocodone 5 mg-acetamin ophen 325 mg tablet TAKE 1 TABLET BY MOUTH EVERY 4 TO 6 HOURS NEEDED FOR PAIN 02/20 completed Not Available Not Available Not Available ondansetron HCl 4 mg tablet TAKE 1 TABLET BY MOUTH EVERY 6 HOURS NEEDED 02/20 completed Not Available Not Available Not Available prednisone 20 mg tablet TAKE 1 TABLET BY MOUTH TWICE DAILY 02/20 completed Not Available Not Available Not Available tramadol 50 mg tablet TAKE 1 TABLET BY MOUTH EVERY 6 HOURS NEEDED FOR BREAKTHRO UGH PAIN 02/20 completed Not Available Not Available Not Available acetaminoph en 500 mg tablet 1000 mg by oral route. active Not Available Not Available No t Available ketorolac 10 mg tablet TAKE 1 TABLET BY MOUTH 4 TIMES DAILY FOR PAIN FOR 4 DAYS . DO NOT EXCEED 4 PER 24 HOURS 02/20 completed Not Available Not Available Not Available terbinafine HCl 250 mg tablet TAKE 1 TABLET BY MOUTH ONCE DAILY 10/29 completed Not Available Not Available Not Available aspirin 325 mg tablet,neena yed release 325 mg by oral route. 12/24 completed Not Available Not Available Not Available tamsulosin 0.4 mg capsule TAKE 2 CAPSULES BY MOUTH ONCE DAILY 03/31 completed Not Available Not Available Not Available phenazopyri dine 100 mg tablet TAKE 1 TABLET BY MOUTH THREE TIMES DAILY NEEDED FOR 10 DAYS 12/02 completed Not Available Not Available Not Available cephalexin 500 mg capsule TAKE 1 CAPSULE BY MOUTH EVERY 6 HOURS UNTIL GONE AFTER SURGERY 02/20 completed Not Available Not Available Not Available indomethaci n 50 mg capsule 03/31 completed Not Available Not Available Not Available docusate sodium 100 mg capsule 100 mg by oral route. active Not Available Not Available No t Available hydroxyzine HCl 25 mg tablet TAKE 1 TABLET BY MOUTH 4 TIMES DAILY WITH YOUR OXYCODONE NEEDED 02/20 completed Not Available Not Available Not Available codeine 10 mg-guaifene sin 100 mg/5 mL oral liquid TAKE 10 ML BY MOUTH EVERY 4 TO 6 HOURS NEEDED FOR COUGH 10/29 completed Not Available Not Available Not Available mupirocin 2 % topical ointment APPLY OINTMENT TOPICALLY TWICE DAILY IN THE MORNING AND IN THE EVENING (A SMALL AMOUNT) IN BOTH NOSTRILS START ON February active Not Available Not Available No t Available furosemide 20 mg tablet 10/29 completed Not Available Not Available Not Available lorazepam 1 mg tablet 03/31 completed Not Available Not Available Not Available methylpredn isolone 4 mg tablets in a dose pack 12/02 completed Not Available Not Available Not Available colchicine 0.6 mg tablet TAKE 1 TABLET BY MOUTH ONCE DAILY 10/29 completed Not Available Not Available Not Available celecoxib 100 mg capsule TAKE 1 CAPSULE BY MOUTH TWICE DAILY 10/29 completed Not Available Not Available Not Available ondansetron 4 mg disintegrat ing tablet DISSOLVE 1 TABLET IN MOUTH 4 TIMES DAILY NEEDED FOR NAUSEA 02/20 completed Not Available Not Available Not Available oxycodone 5 mg tablet TAKE 1-2 TABLETS BY MOUTH EVERY 4 HOURS NEEDED FOR POST SURGERY PAIN, MAX OF 6 TABLETS PER DAY 02/20 completed Not Available Not Available Not Available rosuvastati n 10 mg tablet Take 10 mg by oral route. 02/20 completed Not Available Not Available Not Available rosuvastati n 20 mg tablet TAKE 1 TABLET BY MOUTH ONCE DAILY 02/20 completed 40mg Not Available Not Available Not Available rosuvastati n 40 mg tablet TAKE 1 TABLET BY MOUTH ONCE DAILY active Not Available Not Available No t Available sildenafil (pulmonary hypertensio n) 20 mg tablet TAKE 1-5 TABLETS BY MOUTH 1 HOUR PRIOR TO SEXUAL ACTIVITY NEEDED. MAX 5 TABLETS IN 24 HOURS 2023 active Not Available Not Available Not Avai lable Lipitor 03/31 completed Not Available Not Available Not Available Prilosec OTC active Not Available Not Available Not Available testosteron e 20.25 mg/1.25 gram per pump act.(1.62 %) transdermal gel APPLY 1 PUMP ON DRY CLEAN HAIRLESS SKIN EVERY MORNING TO CLEAN DRY INTACT SKIN OF THE SHOULDERS AND UPPER ARMS DO NOT APPLY TO ANY OTHER PARTS OF THE BODY active Not Available Not Available No t Available lidocaine 5 % topical ointment 03/31 completed Not Available Not Available Not Available Myrbetriq 50 mg tablet,exte nded release Take 1 tablet every day by oral route. 03/31 completed Not Available Not Available Not Available Eliquis 5 mg tablet STOP ASPIRIN. TAKE 1 TABLET BY MOUTH IN THE MORNING AND 1 IN THE EVENING 10/29 completed Not Available Not Available Not Available Children's Flonase Allergy Relief 50 mcg/actuati on nasal spray,susp 2 {spray}s by nasal route. 12/24 completed Not Available Not Available Not Available Gemtesa 75 mg tablet Take 1 tablet every day by oral route. 2022 active Not Available Not Available Not Avai lable Vitals Date Recorded Body height Body mass index (BMI) Body weight Provider Name and Address Organization Details Last Updated DateTime 10/29/2022 180.34 cm 30.7 kg/m2 24431.32 g Ricco White [facility] 10/29/2022 15:34:11 Date Recorded Body height Body mass index (BMI) Body weight Provider Name and Address Organization Details Last Updated DateTime 12/07/2022 180.34 cm 30.7 kg/m2 10600.32 g Ricco White [facility] 12/07/2022 12:37:46 Date Recorded Body height Body mass index (BMI) Body weight Provider Name and Address Organization Details Last Updated DateTime 02/21/2024 180.34 cm 30.7 kg/m2 50534.32 g Sánchez Álvarez [facility] 02/21/2024 15:29:30 Date Recorded Body height Body mass index (BMI) Body weight Provider Name and Address Organization Details Last Updated DateTime 06/09/2021 180.34 cm 30.7 kg/m2 50054.32 g Daphney Pak [facility] 06/09/2021 16:15:14 Date Recorded Body height Body mass index (BMI) Body weight Provider Name and Address Organization Details Last Updated DateTime 12/02/2021 180.34 cm 30.7 kg/m2 74129.32 g Mt Marroquin MD [address], [place], [address], [facility] 12/02/2021 14:36:40 Social History Question Answer Notes LastModified by Organizat ion Details LastModified Time Tobacco Smoking Status Never Smoker Michael patrick [facility] 03/28/2020 15:50:18 What Is Your Level Of Alcohol Consumption? Occasional Information not available 02/21/2024 What Is Your Level Of Caffeine Consumption? Occasional Information not available 02/21/2024 What Is Your Occupation? [employer] [email or web address] Information not available 03/29/2020 What Was The Date Of Your Most Recent Tobacco Screening? 02/21/2024 Information not available 02/21/2024 Have You Ever Been Counseled For Unhealthy Alcohol Use? No Information not available 02/21/2024 Do You Use Any Illicit Or Recreational Drugs? No Information not available 02/21/2024 Has Tobacco Cessation Counseling Been Provided? No Information not available 02/21/2024 Do You Or Have You Ever Used Any Other Forms Of Tobacco Or Nicotine? No Information not available 02/21/2024 How Many Days In The Past Year Have You Consumed 5 Or More Drinks? 0 Information not available 02/21/2024 Sex: Unknown Functional Status None recorded. Mental Status None recorded. Family History Relationship Description Onset Age of this Age Resolved Age Notes LastModified by Organization Details LastModified Time Father Family history of malignant neoplasm prosta te cancer father , brothe rs, uncles and male cousin s [email or web address] Not available 03/28/2020 15:49:51 Father Family history of Hypertension bothe parent had it [email or web address] Not available 03/28/2020 15:49:15 Medical History Condition Response Sexually Transmitted Infection N Diabetes N Bleeding Disorder N High Blood Pressure N Kidney Stones N Cancer N Lung Disease N Depression N High Cholesterol Y GERD/Acid Reflux Y Heart Disease Y Immunizations Vaccine Type Date Status Provider Name and Address Organization Details Recorded Time zoster recombinant 02/13/2022 completed Tatiana mckeon null, [facility] 09/09/2023 14:09:18 zoster recombinant 04/21/2022 completed Tatiana New eska null, [facility] 09/09/2023 14:09:18 Influenza, MDCK, quadrivalent, PF 07/23/2016 [facility] 14:49:18 COVID-19, mRNA, LNP-S, PF, 100 mcg/0.5mL dose or 50 mcg/0.25mL dose 12/06/2020 [facility] 14:49:18 COVID-19, mRNA, LNP-S, PF, 100 mcg/0.5mL dose or 50 mcg/0.25mL dose 01/03/2021 [facility] 14:49:18 Tdap 07/12/2012 completed [facility] 05/[facility] 14:49:18 zoster live 04/17/2013 [facility] 14:49:18 Influenza, split virus, trivalent, preservative 07/02/2008 [facility] 14:49:19 Influenza, split virus, trivalent, preservative 07/06/2007 completed Wendychamp Smiths null, [facility] 05/21/2023 14:49:19 Influenza, split virus, trivalent, PF 05/26/2012 [facility] 14:49:19 Influenza, split virus, trivalent, PF 05/30/2013 completed [facility] 14:49:19 Influenza, split virus, trivalent, PF 06/06/2009 [facility] 14:49:19 Influenza, split virus, trivalent, PF 06/10/2011 completed Wendy Phelps null, [facility] 05/21/2023 14:49:19 Influenza, split virus, trivalent, PF 07/03/2010 completed Wendy Phelps null, [facility] 05/21/2023 14:49:19 Influenza, split virus, trivalent, PF 07/24/2014 completed Wendy Phelps null, [facility] 05/21/2023 14:49:19 Novel [id number] 07/23/2009 completed Wendy Phelps null, [facility] 05/21/2023 14:49:19 Influenza, split virus, quadrivalent, PF 09/22/2018 completed Wendy Phelps null, [facility] 05/21/2023 14:49:19 Influenza, split virus, quadrivalent, 10/03/2019 completed Wendy Phelps null, [facility] 05/21/2023 14:49:19 Influenza, split virus, quadrivalent, 06/21/2017 completed Wendy Phelps null, [facility] 05/21/2023 14:49:19 Influenza, split virus, quadrivalent, 07/22/2020 completed Wendy Phelps null, [facility] 05/21/2023 14:49:19 Influenza, split virus, quadrivalent, PF 07/23/2009 completed Wendy Phelps null, [facility] 05/21/2023 14:49:19 Influenza, split virus, quadrivalent, 07/23/2015 completed Wendy Phelps null, [facility] 05/21/2023 14:49:19 Past Encounters Encounter ID Performer Location Encounter Start Date Encounter Closed Date Diagnosis/Indication Diagnosis SNOMED-CT Code Diagnosis ICD10 Code [id number] MD HEIDI [facility] [address] [place] [address] 03/28/2020 15:31:23 03/29/2020 12:04:24 Overactive urinary bladder 510701183 N32.81 Lower urin malaika tract symptoms due to benign prostatic hypertrophy 1361087188 9101 N40.1 [id number] MD HEIDI [facility] [address] [place] [address] 06/06/2020 15:33:07 06/07/2020 06:02:27 Lower urinary tract symptoms due to benign prostatic hypertrophy 0044676712 9101 N40.1 [id number] Magan Montejo MD [facility] [address] [place] [address] 06/06/2020 15:33:07 06/07/2020 08:54:22 [id number] Gu[facility] [address] [place] [address] 11/29/2020 11:25:54 12/02/2020 09:23:00 Dysuria 44493031 R30.9 [id number] Mt Marroquin MD [facility] [address] [place] [address] 12/03/2020 08:54:19 12/04/2020 11:10:38 Increased frequency of urination 749901099 R35.0 Benign pro static hyperplasia with outflow obstruction 778185131 N40.1 [id number] Mt Marroquin MD [facility] [address] [place], [place] [address] 01/28/2021 15:31:38 01/29/2021 10:32:41 Lower urinary tract symptoms due to benign prostatic hypertrophy 6960007679 9101 N40.1 Increased frequency of urination 253846707 R35.0 [id number] Mt Marroquin MD [facility] [address] [place], [place] [address] 03/31/2021 16:11:30 04/02/2021 09:34:47 Benign prostatic hyperplasia 571492011 N40.1 Urgent reuben luis to urinate 67816910 R39.15 [id number] Mt Marroquin MD [facility] [address] [place], [place] [address] 06/09/2021 16:01:41 06/10/2021 13:42:00 Prostate specific antigen above reference range 143251686 R97.20 Benign pro static hyperplasia with outflow obstruction 783328028 N40.1 [id number] Mt Marroquin MD [facility] [address] [place], [place] [address] 12/02/2021 14:25:46 12/03/2021 11:43:52 Benign prostatic hyperplasia with outflow obstruction 084893798 N40.1 Erectile dysfunction 860 539475 F52.21 Urge incon tinence of urine 83466424 N39.41 [id number] Rhina Kline PA-C [facility] [address] [place] [address] 10/29/2022 15:24:16 11/02/2022 10:19:45 Benign prostatic hyperplasia with outflow obstruction 649196364 N40.1 Erectile dysfunction 860 275758 F52.21 Urge incon tinence of urine 72268792 N39.41 [id number] Mt Marroquin MD [facility] [address] [place] [address] 12/07/2022 12:25:35 12/10/2022 14:26:41 Benign prostatic hyperplasia with outflow obstruction 912294378 N40.1 Urgent reuben luis to urinate 73175256 R39.15 [id number] Mt Marroquin MD [facility] [address] [place] [address] 02/21/2024 15:18:47 02/22/2024 10:20:07 Benign prostatic hyperplasia with outflow obstruction 987618388 N40.1 Family his tory of malignant neoplasm of prostate 308984865 Z80.42 Health Concerns Section Related Observation LastModified by Organization Detai ls LastModified Time None Recorded Concern Status LastModified by Organization Details LastModified Time None Recorded Advance Directives Directive None Recorded Payers Encounter Date Sequence Insurance Name Policy Number Policy Guy Covered Member ID Guy Member ID Guarantor Name 06/09/2021 2 [employer] - INDIVIDUAL AND FAMILY (O) [id number] Wojciech Ramirez [id number] Wojciech Ramirez 12/02/2021 2 [employer] - INDIVIDUAL AND FAMILY (O) [id number] 1 Wojciech Ramirez [id number] Wojciech Ramirez 10/29/2022 2 [facility] - INDIVIDUAL AND FAMILY (O) [id number] 1 Wojciech Ramirez [id number] Wojciech Ramirez 12/07/2022 2 [facility] - INDIVIDUAL AND FAMILY (O) [id number] 1 Wojciech Mcnamaranelly [id number] Wojciech Ramirez 02/21/2024 2 [facility] - INDIVIDUAL AND FAMILY (HMO) [id number] 1 Wojciech Ramirez [id number] Wojciech Ramirez 02/21/2024 1 [place] [employer] [facility] Wojciech Ramirez Jr [id number] Wojciech Ramirez Notes Date Note Type Note Provider Name and Address Organization Details Recorded Time 06/09/2021 text/html HPI Notes: 60-year-old male who is status post saline transurethral resection for benign disease December 24, 2020. Patient had previous greenlight laser at the [facility] with Dr. Fleming. Presented to our office with severe penile discomfort, urinary urgency, frequency and very slow stream. Patient symptoms have markedly improved. Pathology was benign. Focal chronic inflammation was noted. Patient's postvoid residual today is 0. Serum PSA 1.3 Mt Marroquin MD [address] [place] [address],[address], [phone], [facility] 06/09/2021 18:16:55 12/02/2021 text/html HPI Notes: 61-year-old male with history of prior greenlight laser at the [facility] with continued obstruction secondary to a ball-valve middle lobe prostate. Status post saline bipolar resection by me. Pain has completely resolved and good force of stream. Continues to have urge and occasional urge incontinence. Has improved after initiating physical therapy for low back issues. PSA remains 1.3. Postvoid 0. Urinalysis trace small blood Mt Marroquin MD [address] [place] [address],[address] [place] [address], [id number], [facility] 12/02/2021 15:37:13 10/29/2022 text/html HPI Notes: 61-year-old male with history of prior greenlight laser at the [facility] with continued obstruction secondary to a ball-valve middle lobe prostate. Status post saline bipolar resection by sc. Pain has completely resolved and good force of stream. Continues to have urge and occasional urge incontinence. Has improved after initiating physical therapy for low back issues. PSA remains 1.3. Postvoid 0. Urinalysis trace small blood 10/28/22: Patient of Dr. Marroquin here for urinary urgency and occasional urge incontinence. Had been doing PT for low back issues with some improvement in his urge incontinence initially. Here today due to worsening urgency and urge incontinence. Dr. Marroquin sent Rx for Gemtesa last year, but patient states he never tried this. Denies gross hematuria, dysuria, fever, or chills. Remains on sildenafil with no issues. UA today negative PVR today 23cc Rhina Kline PA-C [address], [place], [address], [facility] 10/29/2022 16:50:45 12/07/2022 text/html HPI Notes: 61-year-old male with history of prior green light laser at the [facility] with continued obstruction secondary to a ball-valve middle lobe prostate. Patient was also experiencing constant pain subsequent to the procedure. He is now status post saline bipolar resection by me December 24, 2020. Pain has completely resolved and good force of stream. Continues to have urge and occasional urge incontinence. Has improved after initiating physical therapy for low back issues. 10/28/22: Patient of Dr. Marroquin here for urinary urgency and occasional urge incontinence. Had been doing PT for low back issues with some improvement in his urge incontinence initially. Here today due to worsening urgency and urge incontinence. Dr. Marroquin sent Rx for Gemtesa last year, but patient states he never tried this. Denies gross hematuria, dysuria, fever, or chills. Remains on sildenafil with no issues. UA today negative PVR today 23cc Most recent PSA from 1 year ago measured 1.3 Patient has degenerative arthritis in both knees. Prior total knee arthroplasty failed. Currently seeing a new orthopedic surgeon Dr. Denton Barnett with plans to pursue bilateral total knee arthroplasty Mt Marroquin MD [address] [facility] [address], [place], [address], [facility] 12/07/2022 14:06:45 02/21/2024 text/html HPI Notes: 63-year-old gentleman well-known to me. History of BPH and associated obstructive and irritative voiding symptoms. Also family history of prostate cancer. Patient underwent greenlight laser in 2019 at the [facility] which failed to relieve his obstructive symptoms and actually increased his irritative symptoms. He was then seen and followed by Magan Montejo for a period of time before seeing me. He underwent saline bipolar transurethral resection in December 2020 with significant improvement in symptoms. He did have an to continues to have mild urinary urgency but he has not yet initiated Gemtesa. PSA is low and stable at 1.8. He continues to have issues with his knee and is a patient of Dr. Denton Marroquin MD [address] [place] [address],[address], [place], [address], [facility] 02/21/2024 17:23:40
--- OUTSIDE RECORDS SUMMARY | 2024-06-09 15:12 | XMS_ITS | Referral Summary ---
Author Organization [place] Address [address] [place] [address]. [place] [address] Care Team Providers Care Rubber Flap Tuber Machine Operator Name Role Phone No Ref-Primary, Physician Primary [...] Comments Blood Pressure 118/72 10/08/2022 1:56 PM INDUSTRIAL SEWER Pulse - - Temperature - - Respiratory Rate - - Oxygen Saturation - - Inhaled Oxygen Concentration - - Weight 99.8 kg (220 lb) 10/08/2022 1:56 PM INDUSTRIAL SEWER Height 180.3 cm (5' 11) 10/08/2022 1:56 PM INDUSTRIAL SEWER Body Mass Index 30.68 10/08/2022 1:56 PM INDUSTRIAL SEWER Plan of Treatment Not on file Care Teams Rubber Flap Tuber Machine Operator Relationship Specialty Start Date End Date No Ref-Primary, Physician PCP - General 10/08/22
--- OUTSIDE RECORDS SUMMARY | 2024-06-09 15:12 | XMS_ITS | Clinical Summary ---
Author Organization [place] Address [address] [place] [address]. [place] [address] Care Team Providers Care Foreman Shipping Department Name Role Phone No Ref-Primary, Physician Primary [...] Comments Blood Pressure 118/72 10/08/2022 1:56 PM CAR WASH SUPERVISOR Pulse - - Temperature - - Respiratory Rate - - Oxygen Saturation - - Inhaled Oxygen Concentration - - Weight 99.8 kg (220 lb) 10/08/2022 1:56 PM CAR WASH SUPERVISOR Height 180.3 cm (5' 11) 10/08/2022 1:56 PM CAR WASH SUPERVISOR Body Mass Index 30.68 10/08/2022 1:56 PM CAR WASH SUPERVISOR Plan of Treatment Health Maintenance Due Date Last Done Comments ADVANCE CARE PLANNING 1960 ANNUAL REVIEW OF HM ORDERS 1958 CT COLONOGRAPHY 1958 FIT 1958 FLEX SIG 1958 GLUCOSE 1958 LIPID 1958 sDNA (Cologuard) 1958 COLONOSCOPY 1968 COLORECTAL CANCER SCREENING 1968 HEPATITIS C SCREENING 1976 DTAP/TDAP/TD IMMUNIZATION (2 - Td or Tdap) 07/12/2022 07/12/2012 FALL RISK ASSESSMENT 2023 MEDICARE ANNUAL WELLNESS VISIT 2023 Pneumococcal Vaccine: 65+ Years (1 of 1 - PCV) 2023 PHQ-2 (once per calendar year) 2023 COVID-19 Vaccine (3 - 2022- season) 2024 01/03/2021, 12/06/2020 INFLUENZA VACCINE (#1) 2024 , 10/03/2019, 06/06/2019, Additional history exists RSV VACCINE (1 - 1-dose 75+ series) 2033 ZOSTER IMMUNIZATION Completed 04/21/2022, 02/13/2022, 04/17/2013 HPV IMMUNIZATION Aged Out No longer e ligible based on patient's age to complete this topic MENINGITIS IMMUNIZATION Aged Out No l onger eligible based on patient's age to complete this topic RSV MONOCLONAL ANTIBODY Aged Out No l onger eligible based on patient's age to complete this topic Care Teams Foreman Shipping Department Relationship Specialty Start Date End Date No Ref-Primary, Physician PCP - General 10/08/22
--- OUTSIDE RECORDS SUMMARY | 2024-06-09 15:12 | XMS_ITS | Clinical Summary ---
Author Organization [facility] [employer] Address [place], [place] [address] Care Team Providers Care Surgical Territory Manager Name Role Phone Elbert Sloan MD Primary Care Provider [phone] Maria Esther Godwin MBBS Unavailable [phone] Allergies Active Allergy Reactions Criticality Noted Date [...] by mouth once daily. 0 10/15/2022 Active rosuvastatin (CRESTOR) 40 mg tabletIndications:Hyp erlipidemia, unspecified hyperlipidemia type Take 1 Tablet (40 mg) by mouth once daily. 12/27/2023 Active testosterone (AndroGeL) 20.25 mg/1.25 gram (1.62 %) glpm transdermal gelIndications:Low testosterone in male Apply 1 pump (20.25 mg) on dry, clean, hairless skin once daily in the morning. To clean, dry, intact skin of the shoulders and upper arms. Do NOT apply to any other parts of the body. 2 g 1 04/25/2024 Active Active Problems Problem Noted Date Diagnosed Date Benign prostatic hyperplasia with urinary obstru ction 08/29/2020 Presence of left artificial knee joint 8 Overview (12/26/2023): Last Assessment & Plan: - Received right [...] of lumbosacral spine without myelopa thy 08/12/2018 Overview (12/26/2023): Last Assessment & Plan: - XR spine lumbar ordered, will review images with IR for further recommendations - Refilled gabapentin, may increase to 600 mg TID if needed otherwise take as prescibed DDD (degenerative disc disease), lumbar 12/23/19 18 Lumbar facet arthropathy 12/22/2017 Obstructive sleep apnea of adult 07/27/2012 Closed fracture of shaft of ulna 09/24/2008 Recurrent paroxysmal atrial fibrillation 008 Overview (12/05/2007): S/P DCCV 10/17/07 Encounters Date Type Department Care Team Description 04/28/2024 12:00 PM CDT Office Visit [facility] [address] [phone] Maria Esther Godwin MBBS Follow Up (Low testosterone ) 04/28/2024 Travel 04/24/2024 Refill [facility] [address] [phone] Maria Esther Godwin MBBS Refill Request 04/19/2024 Telephone [facility] [address] [place] [address] Gem Cho MD Results (LDL, lipid panel and ALT.) 04/13/2024 9:30 AM CDT Orders Only [facility] [address] [place], [place] [id number] Lab, [facility] 04/13/2024 Travel from Last 3 Months Immunizations Name [...] Sign Reading Time Taken Comments Blood Pressure 122/72 04/28/2024 12:21 PM CDT Pulse 80 04/28/2024 12:21 PM CDT Temperature 36.4 ??C (97.5 ??F) 12/26/2023 1 2:36 PM CDT Respiratory Rate 20 12/26/2023 12:3 6 PM CDT Oxygen Saturation 97% 12/27/2023 11: 48 AM CDT Inhaled Oxygen Concentration - - Weight 106.3 kg (234 lb 6.4 oz) 024 12:21 PM CDT Height 180.3 cm (5' 11) 12/27/2023 11: 48 AM CDT Body Mass Index 32.69 12/27/2023 11:48 AM CDT Plan of Treatment Upcoming Encounters Date Type Department Care Team (Late st Contact Info) Description 05/01/2025 12:00 PM CDT Office Visit [facility] [address] [phone] Maria Esther Godwin MBBS [address] [place] [place] [address] Health Maintenance Due Date Last Done Comments Depression screening for age 12+ 1970 Hepatitis C screening for ag e 18-79 1976 Colonoscopy through age 75 2003 Tetanus booster 07/12/2022 07/12/2012 Medicare Wellness for age 65+ 2023 Pneumococcal series for age 65+ (1 of 1 - PCV) 2023 COVID-19 vaccine series (3 - 2022- season) 2024 01/03/2021, 12/06/2020 Influenza for age 65+ 05/21/2024 [...] unspecified whether lower urinary tract symptoms present from Last 3 Months Results * (ABNORMAL) LIPID PANEL W REFLEX MEASURED LDL (04/13/2024 9:44 AM CDT) CHOLESTEROL,TOTAL 148 100 - 199 mg/dL 04/13/2024 4:42 PM CDT [facility] Comment: Cholesterol, Total Reference Ranges Desirable <200 mg/dL Borderline 200-239 mg/dL High >=240 mg/dL TRIGLYCERIDES 161(H) <150 mg/dL 04/13/2024 4:42 PM CDT [facility] HDL CHOLESTEROL 47 >40 mg/dL 4:42 PM CDT [facility] NON-HDL CHOLESTEROL 101 <145 mg/dl 04/13/2024 4:42 PM CDT [facility] CHOL/HDL RATIO 3.15 <4.50 04/13/2024 4:42 PM CDT [facility] LDL CHOLESTEROL 69 <=130 mg/dL 04/13/2024 4:42 PM CDT [facility] VLDL CHOLESTEROL 32(H) <=30 mg/dL 04/13/2024 4:42 PM CDT [facility] PROVIDER ORDERED STATUS RANDOM 04/13/2024 4:42 PM CDT [facility] Blood BLOOD SPECIMEN / Unknown Venipuncture / Unknown 04/13/2024 9:44 AM CDT 04/13/2024 9:44 AM CDT Gem Cho NP CHEMISTRY [facility] [address] [place] [address], * HEMATOCRIT (04/13/2024 9:44 AM CDT) HEMATOCRIT 44.5 37.0 - 53.0 % 04/13/2024 9:48 AM CDT [facility] Blood BLOOD SPECIMEN / Unknown Venipuncture / Unknown 04/13/2024 9:44 AM CDT 04/13/2024 9:44 AM CDT Narrative [facility] - 04/13/2024 9:48 AM CDT This procedure was originally ordered at [facility]. Maria Esther KIM HEMATOLOGY [facility] [address] [place] [address], * ALT (SGPT) (04/13/2024 9:44 AM CDT) ALT (SGPT) 21 10 - 50 IU/L 04/13/2024 4:42 PM CDT [facility] Blood BLOOD SPECIMEN / Unknown Venipuncture / Unknown 04/13/2024 9:44 AM CDT 04/13/2024 9:44 AM CDT Gem Cho NP CHEMISTRY [facility] [address] [place] [address], * TESTOSTERONE,TOTAL (04/13/2024 9:44 AM CDT) TESTOSTERONE,T OTAL 405.0 ng/dL 04/13/2024 5:59 PM CDT [facility] Blood BLOOD SPECIMEN / Unknown Venipuncture / Unknown 04/13/2024 9:44 AM CDT 04/13/2024 9:44 AM CDT Narrative [facility] - 04/13/2024 5:59 PM CDT ? TESTOSTERONE, TOTAL REFERENCE RANGES Age Range ? Female ?Male ?Units 20-50 years ? 8.4-48.1 ?249.0-836.0 ?? ng/dl 50-999 years ?2.9-40.8 ?193.0-740.0 ?? ng/dl Maria Esther KIM CHEMISTRY [facility] [address] [place] [address], * PSA TOTAL (DIAGNOSTIC) (04/13/2024 9:44 AM CDT) PSA TOTAL (DIAGNOSTIC) 1.58 <4.00 ng/mL 04/13/2024 4:42 PM CDT [facility] Blood BLOOD SPECIMEN / Unknown Venipuncture / Unknown 04/13/2024 9:44 AM CDT 04/13/2024 9:44 AM CDT Narrative [facility] - 04/13/2024 4:42 PM CDT The [...] and cannot be used interchangeably. Maria Esther KIM CHEMISTRY [facility] [address] [place] [address], from Last 3 Months Advance Directives * [...] Code Status Discussion: Not Discussed Care Teams Surgical Territory Manager Relationship Specialty Start Date End Date Elbert Sloan MD [address], [place] [address] PCP - General Family Practice 01/26/24 Maria Esther Godwin MBBS [address] [address] Consulting Physician Endocrinology 06/02/24
== END 2024-06-09 15:11 | disposition home or self-care (01) ==
LOC: ED 15:09
PROVIDERS: Emergency Provider Family Medicine; PCP Family Medicine
DX: L03.012 Cellulitis of left finger (principal)
CPT/HCPCS: 10060; 99283; 99284

== ENCOUNTER 2024-08-25 16:52 | Emergency (ER) | payer MEDICARE, OTHER, SELFPAY ==
[2024-08-25 17:04] VITALS: BP 133/82; PULSE 97; RESP 18; TEMP 37; O2SAT 97; BMI 31.4
--- NOTE | 2024-08-25 17:22 | ED_ITS ---
HPI - General Adult General Chief complaint: Abdominal Pain Stated complaint: pain in rt side Time Seen by Provider: 08/25/24 17:18 History of Present Illness HPI narrative: R side pain that started at 2pm. states feels full and like something catching in there. pain worse with wrong movement. 64-year-old man presenting to the emergency department with concern of right side abdominal pain. Pain particularly exacerbated with movement. Began suddenly around 3 hours, 3-1 /2 hours ago this afternoon. Has had what sounds like URI over the last week with coughing. Thought initially that there was pleuritic pain but this does not seem to be the case. Does not recall any particular injury. Does work [employer]. No rashes. No bowel problems. No personal family history of nephrolithiasis. No difficulty urinating. No hematuria. No rashes. No leg swelling or pain. No coagulopathy noted. Related Data Home Medications ?Medication ?Instructions ?Recorded ?Confirmed sildenafil (pulm.hypertension) 20 20 mg PO Q24H 05/15/22 07/24/24 mg tablet aspirin 325 mg tablet 325 mg PO QDAY 11/30/22 08/25/24 omeprazole 20 mg capsule,delayed 20 mg PO .Daily 12/10/22 08/25/24 release testosterone 1 pump topical QDAY 11/24/23 07/24/24 Previous Rx's ?Medication ?Instructions ?Recorded rosuvastatin 40 mg tablet 40 mg PO QDAY #90 tabs 08/20/23 Allergies Allergy/AdvReac Type Severity Reaction Status Date / Time morphine Allergy Unknown Verified 07/24/24 12:52 Review of Systems Status of ROS: Reports: 6 or more systems reviewed and unremarkable except as noted in History and below PFSH PFSH Surgical History S/P TURP ?Z90.79 - Acquired absence of other genital organ(s) (ICD-10) S/P total knee arthroplasty ?Z96.659 - Presence of unspecified artificial knee joint (ICD-10) History of Mraie fundoplication (09/03/10) ?Z98.890 - Other specified postprocedural states (ICD-10) History of arthroscopy of knee (12/22/11) ?Z98.890 - Other specified postprocedural states (ICD-10) History of arthroscopic surgery of shoulder ?Z98.890 - Other specified postprocedural states (ICD-10) History of prior ablation treatment ?Z98.890 - Other specified postprocedural states (ICD-10) Status post catheter ablation of atrial fibrillation ?Z98.890 - Other specified postprocedural states (ICD-10) Social History Smoking Status: Never smoker Do you use any of these nicotine containing products: None Second hand tobacco smoke exposure: No How often do you have a drink containing alcohol: 2-4 times a month How many standard drinks containing alcohol do you have on a typical day: 1 or 2 AUDIT-C Alcohol total score: 2 Non-prescribed substance use: denies use service: No Exam Narrative: Exam Narrative: Very pleasant. Positive affect. Is breathing easily. Lungs are clear. Breath sounds throughout Neck is supple. No supraclavicular crepitus. Heart in mildly elevated rate in a regular rhythm. Abdomen is soft and tender initially in the right anterolateral rib margin area but on repeat exam I would say seems to be centered more over the inferior anterolateral right ribs. Up position compression testing is negative. I do not see evidence of trauma on his skin. No rash. Well-perfused peripherally without edema. Intense wince-inducing pain with transition. Const: Vital Signs, click to edit/add: Vital Signs - 24 hr 08/25/24 17:04 Temperature 98.6 F Pulse Rate [Pulse Oximeter] 97 Respiratory Rate 18 Blood Pressure [Ri ght Upper Arm] 133/82 Pulse Oximetry 97 Oxygen Delivery Me thod Room Air Documenting provider has reviewed patient's vital signs: yes Course Vital Signs Vital signs: Initial Vital Signs Temperature 98.6 F 08/25/24 17:04 Temperature Source Temporal Artery Scan 08/25/24 17:04 Pulse Rate 97 08/25/24 17:04 Respiratory Rate 18 08/25/24 17:04 Blood Pressure 133/82 08/25/24 17:04 Blood Pressure Mean 99 08/25/24 17:04 Blood Pressure Position Sitting 08/25/24 17:04 Pulse Oximetry 97 08/25/24 17:04 Oxygen Delivery Method Room Air 08/25/24 17:04 Vital Signs Temperature 98.6 F 08/25/24 17:04 Pulse Rate 97 08/25/24 17:04 Respiratory Rate 18 08/25/24 17:04 Blood Pressure 133/82 08/25/24 17:04 Pulse Oximetry 97 08/25/24 17:04 Oxygen Delivery Method Room Air 08/25/24 17:04 Temperature 98.6 F 08/25/24 17:04 Pulse Rate 97 08/25/24 17:04 Respiratory Rate 18 08/25/24 17:04 Blood Pressure 133/82 08/25/24 17:04 Pulse Oximetry 97 08/25/24 17:04 Oxygen Delivery Method Room Air 08/25/24 17:04 Medications Administered Medications: Discontinued Medications Generic Name Dose Route Start Last Admin Trade Name Freq PRN Reason Stop Dose Admin Ibuprofen 800 mg 08/25/24 18:43 08/25/24 18:50 Ibuprofen 400 Mg Tablet PO 08/25/24 18:44 800 mg ONCE ONE Administration Lidocaine 1 patch 08/25/24 17:37 08/25/24 17:44 Lidocaine 5% Patch TRANSDERMA 08/25/24 17:38 1 patch ONCE ONE Administration Protocol Medical Decision Making [facility] Narrative Medical decision making narrative: If does appear to have a high chest wall injury here. I do not think actual intra-abdominal process but could have gallbladder disease/biliary colic by history. Coughing certainly may have precipitated intercostal pain. May have costochondritis. Does not seem to actually be pleuritic. May even have an associated rib fracture. Would start with x-ray of the chest with rib views. Ibuprofen. Trial of a lidocaine patch as well. Chest x-ray dedicated rib views of the right independently reviewed by me did not appear to show any fracture. No pneumothorax. No infiltrate. Radiology over-read below TECHNIQUE: Chest and laterality rib radiographs, 3 views. COMPARISON: Chest radiographs 05/26/2023. FINDINGS: Cardiovascular/Mediastinum: Normal heart size. Unremarkable. Lungs: No focal consolidation. Airways: Trachea remains midline. Pleura: No pleural effusions or pneumothorax. Bones: No acute osseous abnormalities. No acute displaced rib fractures on the dedicated oblique views . Upper abdomen: Unremarkable. IMPRESSION: No acute cardiopulmonary process. No acute displaced rib fractures, pleural effusions or pneumothorax. Did end up adding screening labs for potential biliary disease or other indication of more severe underlying process perhaps of the rather elevated white count. Labs with normal white count and chemistries including liver. Examining again more convinced of chest wall pain. Without rib binder so placed some Carlito wraps which he says that help with discomfort. Also supplied with an abdominal binder. Overall improved with symptoms. See patient discharge plan for further discussion Thank you for your patience tonight. If you think this lidocaine patch is helpful, can purchase more [id number]. Might also try some [id number] pain creams like diclofenac. Temporarily and maybe with little food can take up to 800 mg of ibuprofen or alternatively up to 1000 mg of acetaminophen per dose. Alternative to the ibuprofen might be up to 500 mg naproxen 2 times daily. You requested some Flexeril, prescribing some of this from [facility]. If you choose to use the Carlito wraps or abdominal binder, be sure to take some deep breaths a few times daily to properly expand your lungs. Be seen for pain lasting longer than a week unchanged or clearly escalating accompanied by increasing shortness of breath or lightheadedness. Medical Records Medical records reviewed: Yes I reviewed the patient's medical records Lab Data Lab results reviewed: Yes I reviewed the patient's lab results Labs: Lab Results 08/25/24 Range/Units 20:13 WBC 5.41 (4.50-11.00) K/uL RBC 4.97 (4.30-5.90) m/uL Hgb 14.3 (13.5-17.5) gm/dL Hct 43.1 (37.0-53.0) % MCV 87 (80-100) fL MCH 29 (26-34) pg MCHC 33 (32-36) gm/dL RDW Coeff of Shannan 13.0 (11.5-15.5) % Plt Count 182 (140-440) K/uL Neut % (Auto) 75.7 H (42.0-72.0) % Lymph % (Auto) 13.5 L (20-44) % Howard % (Auto) 8.9 (0.0-11.0) % Eos % (Auto) 1.5 (0.0-7.0) % Baso % (Auto) 0.4 (0.0-3.0) % Neut # (Auto) 4.10 (1.7-7.0) K/uL Lymph # (Auto) 0.70 L (0.90-2.90) K/uL Howard # (Auto) 0.50 (0.00-0.90) K/UL Eos # (Auto) 0.08 (0.00-0.50) K/uL Baso # (Auto) 0.02 (0.00-0.30) K/uL Abs Immat Gran (auto) 0.00 (0.00-0.30) K/uL Imm/Tot Granulo (auto) 0.0 % Sodium 138 (135-149) mmol/L Potassium 4.1 (3.6-5.1) mmol/L Chloride 108 (96-114) mmol/L Carbon Dioxide 26 (20-32) mmol/L Anion Gap 4 L (7-15) mEq/L BUN 27 (7-30) mg/dL Creatinine 0.8 (0.5-1.5) mg/dL Estimated Creat Clear 77.39 Estimated GFR 98 ml/min Glucose 90 (60-115) mg/dL Calcium 9.1 (8.4-10.6) mg/dL Total Bilirubin 0.3 (0.1-1.5) mg/dL Direct Bilirubin 0.2 (0.0-0.5) mg/dL AST 23 (12-35) U/L ALT 23 (4-50) U/L Alkaline Phosphatase 61 (40-150) U/L C-Reactive Protein < 0.5 L (0.5-1.0) mg/dL Total Protein 6.1 (6.0-8.3) g/dL Albumin 3.8 (3.3-5.0) g/dL Discharge Plan Discharge Clinical Impression: Acute chest wall pain Patient Disposition: Home, Self-Care Condition: Improved Additional Instructions: Thank you for your patience tonight. If you think this lidocaine patch is helpful, can purchase more [id number]. Might also try some [id number] pain creams like diclofenac. Temporarily and maybe with little food can take up to 800 mg of ibuprofen or alternatively up to 1000 mg of acetaminophen per dose. Alternative to the ibuprofen might be up to 500 mg naproxen 2 times daily. You requested some Flexeril, prescribing some of this from [facility]. If you choose to use the Carlito wraps or abdominal binder, be sure to take some deep breaths a few times daily to properly expand your lungs. Be seen for pain lasting longer than a week unchanged or clearly escalating accompanied by increasing shortness of breath or lightheadedness. Prescriptions: No Action sildenafil (pulm.hypertension) 20 mg tablet 20 mg PO Q24H Patient Comments: TAKE 1 TO 5 TABLETS BY MOUTH NEEDED ABOUT 1 HOUR PRIOR TO SEX DO NOT EXCEED 5 TABLETS PER 24 HOURS aspirin 325 mg tablet 325 mg PO QDAY testosterone 20.25 mg/1.25 gram (1.62 %) gel in metered-dose pump 1 pump topical QDAY Rx Instructions: apply 1 pump amount over max area of ONE upper arm and shoulder omeprazole 20 mg capsule,delayed release(DR/EC) 20 mg PO .Daily rosuvastatin 40 mg tablet 40 mg PO QDAY Qty: 90 3RF Follow Up/Referrals: Elbert Sloan MD [Primary Care Provider] - Stand Alone Forms: [facility] Info Instructions
[2024-08-25] MEDS: LIDOCAINE 5% PATCH 1 PATCH TRANSDERMA (17:44)
--- OUTSIDE RECORDS SUMMARY | 2024-08-25 17:49 | XMS_ITS | Clinical Summary ---
Author Organization [facility] Address [place], [place] [address] Care Team Providers Care Microwave Oven Assembler Name Role Phone Elbert Sloan MD Primary Care Provider [phone] Maria Esther Godwin MBBS Unavailable [phone] Allergies Active Allergy Reactions Criticality Noted Date [...] fibrillation 008 Overview (12/05/2007): S/P DCCV 10/17/07 Immunizations Name Administration Dates Next Due Influenza [...] 80 04/28/2024 12:21 PM CDT Temperature 36.4 C (97.5 F) 12/26/2023 12:36 PM CDT Respiratory Rate 20 12/26/2023 12:3 [...] 12:00 PM CDT Office Visit [facility] [address] [facility] [address] [phone] Maria Esther oGdwin, [facility] [address] [facility] [address] [address] Health Maintenance Due Date Last Done Comments Depression screening for age 12+ 1970 Hepatitis C screening for ag e 18-79 1976 Colonoscopy through age 75 2003 Tetanus booster 07/12/2022 07/12/2012 Medicare Wellness for age 65+ 2023 Pneumococcal series for age 65+ (1 of - PCV) 2023 COVID-19 vaccine series (2023- season) 2024 01/03/2021, 12/06/2020 Influenza for age [...] Procedure Name Priority Date/Time Associated Diagnosis Comments LIPID PANEL W REFLEX MEASURED LDL Routine 04/13/2024 9:44 AM CDT Hyperlipidemia, unspecified hyperlipidemia type from Last 3 Months or Most Recently Relevant to Health Maintenance Results * (ABNORMAL) LIPID PANEL W REFLEX MEASURED LDL (04/13/2024 9:44 AM CDT) CHOLESTEROL,TOTAL 148 100 - 199 mg/dL 04/13/2024 4:42 PM CDT [facility] Comment: Cholesterol, Total Reference Ranges Desirable <200 mg/dL Borderline 200-239 mg/dL High >=240 mg/dL TRIGLYCERIDES 161(H) <150 mg/dL 04/13/2024 4:42 PM CDT [facility] HDL CHOLESTEROL 47 >40 mg/dL 4:42 PM CDT [facility] NON-HDL CHOLESTEROL 101 <145 mg/dl 04/13/2024 4:42 PM CDT [facility] CHOL/HDL RATIO 3.15 <4.50 04/13/2024 4:42 PM CDT [facility] LDL CHOLESTEROL 69 <=130 mg/dL 04/13/2024 4:42 PM CDT [facility] VLDL CHOLESTEROL 32(H) <=30 mg/dL 04/13/2024 4:42 PM CDT [facility] PROVIDER ORDERED STATUS RANDOM 04/13/2024 4:42 PM CDT [facility] Blood BLOOD SPECIMEN / Unknown Venipuncture / Unknown 04/13/2024 9:44 AM CDT 04/13/2024 9:44 AM CDT Gem Cho NP CHEMISTRY [facility] [address] [place] [id number], from Last 3 Months or Most Recently Relevant to Health Maintenance Advance Directives * Full Code (Latest Code [...] Code Status Discussion: Not Discussed Care Teams Microwave Oven Assembler Relationship Specialty Start Date End Date Elbert Sloan MD [address] [place] [address] PCP - General Family Practice 01/26/24 Maria Esther Godwin MBBS [address] [facility] [address] [place] [address] Consulting Physician Endocrinology 06/02/24
--- OUTSIDE RECORDS SUMMARY | 2024-08-25 17:49 | XMS_ITS | Data Portability ---
Author Organization [facility], [facility] Address [address] [place] [address] Care Team Providers Care Research Agricultural Engineer Name Role Phone ALLEN SUH Primary Care Provider [phone] Assessment No assessment recorded. Plan of Treatment [...] 023 [email or web address] [facility], [address], [place], [address], 3 15:38:49 urinalysis, dipstick 2022 023 ssamb [facility], [address], [place], [address], 3 12:39:06 PSA, serum or plasma 2023 024 [email or web address] [facility], [address], [place], [address], 4 15:58:04 Referral None recorded. Procedures None recorded. Surgeries None recorded. Imaging None recorded. Medication Orders sildenafil (pulmonary hypertensio n) 20 mg tablet 2021 022 [facility], [address] [facility], [place], [address], 2 14:43:07 Gemtesa 75 mg tablet 2021 022 [facility], [address] [facility], [place], [address], 3 15:36:33 sildenafil (pulmonary hypertensio n) 20 mg tablet 2022 023 [facility], [address] [facility], [place], [address], 3 16:49:26 Gemtesa 75 mg tablet 2022 023 [facility], [address] [facility], [place], [address], 3 12:59:36 Patient TargetsNo targets recorded. Patient InstructionsNo instructions recorded. Reason for Referral None Reported. Results Created Date Observation Date Name Description Value Unit Range Abnormal Flag Note LastModifiedBy Organization Detail LastModifiedTime 06/10/2006/10/2021 PSA, serum or plasm a PSA, Total 1.3 ng/mL Not Available [facility] [address], [place], [address], 06/09/2021 16:17:01 12/03/19 22 12/02/2021 PSA, serum or plasm a PSA, Total 1.3ng/ mL Not Available [facility] [address], [place], [address], 12/02/2021 14:42:25 12/03/19 22 12/02/2021 urina lysis , dipst ick Color-Status Yellow Not Available [facility] [address], [place], [address], 12/02/2021 14:41:29 12/03/19 22 12/02/2021 urina lysis , dipst ick Clarity-Stat us Clear Not Available [facility] [address], [place], [address], 12/02/2021 14:41:29 12/03/19 22 12/02/2021 urina lysis , dipst ick Glucose-Stat us Negati ve Not Available [facility] [address], [place], [address], 12/02/2021 14:41:29 12/03/19 22 12/02/2021 urina lysis , dipst ick Bilirubin-St atus Negati ve Not Available [facility] [address], [place], [address], 12/02/2021 14:41:29 12/03/19 22 12/02/2021 urina lysis , dipst ick Ketones-Stat us Negati ve Not Available [facility] [address], [place], [address], 12/02/2021 14:41:29 12/03/19 22 12/02/2021 urina lysis , dipst ick Sp C[place]-Stat us 1.025 Not Available [facility] [address], [place], [address], 12/02/2021 14:41:29 12/03/19 22 12/02/2021 urina lysis , dipst ick pH-Status 5.5 Not Available [facility] [address], [place], [address], 12/02/2021 14:41:29 12/03/19 22 12/02/2021 urina lysis , dipst ick Urobilinogen -Status 0.2 Not Available [facility] [address], [place], [address], 12/02/2021 14:41:29 12/03/19 22 12/02/2021 urina lysis , dipst ick Nitrates-Sta tus negati ve Not Available [facility] [address], [place], [address], 12/02/2021 14:41:29 12/03/19 22 12/02/2021 urina lysis , dipst ick Blood-Status Trace Not Available [facility] [address], [place], [address], 12/02/2021 14:41:29 12/03/19 22 12/02/2021 urina lysis , dipst ick Leuko-Status Negati ve Not Available [facility] [address], [place], [address], 12/02/2021 14:41:29 12/03/19 22 12/02/2021 urina lysis , dipst ick Specimen Type Voided Not Available [facility] [address], [place], [address], 12/02/2021 14:41:29 10/29/19 23 10/29/2022 urina lysis , dipst ick Color-Status Yellow Not Available [facility] [address], [place], [address], 10/29/2022 15:38:28 10/29/19 23 10/29/2022 urina lysis , dipst ick Clarity-Stat us Clear Not Available [facility] [address], [place], [address], 10/29/2022 15:38:28 10/29/19 23 10/29/2022 urina lysis , dipst ick pH-Status 6.5 Not Available [facility] [address], [place], [address], 10/29/2022 15:38:28 12/08/19 23 12/07/2022 urina lysis , dipst ick Color-Status Yellow Not Available [facility] [address], [place], [address], 12/07/2022 12:38:45 12/08/19 23 12/07/2022 urina lysis , dipst ick Clarity-Stat us Clear Not Available [facility] [address], [place], [address], 12/07/2022 12:38:45 12/08/19 23 12/07/2022 urina lysis , dipst ick pH-Status 6.0 Not Available [facility] [address], [place], [address], 12/07/2022 12:38:45 02/21/20 24 02/21/2024 PSA, serum or plasm a PSA 1.8 ng/mL 0-4.0 NG/mL Not Available [facility] [address], [place], [address], 02/21/2024 15:30:48 06/17/20 21 06/09/2021 bladd er [...] Time Prostate specific antigen above reference range 515058802 Completed 202006/09/2021 Daphney patrick [place] [facility] 16:16:23 Benign prostatic hyperplas ia with outflow obstructi on 011234308 Active 2020 Daphney patrick [facility] 1 16:16:33 Obstructi ve sleep apnea of adult 563633708559 3 Active 2011 Sánchez patrick [facility] 4 15:29:43 Degenerat ion of lumbar intervert ebral disc 05677320 Active 2017 Sánchez patrick [facility] 4 15:29:43 Arthropat hy of lumbar facet joint 211527744 Active 2017 Mendez Henri patrick [facility] 4 15:29:43 Atrial fibrillat ion 21874166 Active 2007 Mendez Henri patrick [facility] 4 15:29:43 Problem Notes None recorded. Procedures Surgical History Date Name Laterality Status Provider Name and Address Organization Details Recorded Time 02/21/20 24 DRIVER RECRUITER/blood draw completed Sánchez Álvarez [facility] 02/21/2024 15:30:42 12/08/19 23 Bladder Scan completed Ricco White [facility] 12/07/2022 12:38:40 10/29/19 23 Bladder Scan completed Rhina Kline PA-C [address], [address], [facility] 10/29/2022 15:51:07 12/03/19 22 Bladder Scan completed Liz Boyd [facility] 12/02/2021 14:43:15 12/03/19 22 Blood Draw/DRIVER RECRUITER/PSA RESULTS completed Liz Boyd [facility] 12/02/2021 14:50:43 06/09/20 21 Bladder Scan completed Daphney Pak [facility] 06/09/2021 16:16:56 03/31/20 21 Bladder Scan completed Jessica Oconnor [facility] 03/31/2021 16:40:16 01/29/20 21 Bladder Scan completed Mt Marroquin MD [address], [place], [address], [facility] 01/28/2021 15:53:39 12/25/19 21 TRANSURETHRAL RESECTION OF PROSTATE (SURG) completed Magdalena Ray [facility] 12/25/2020 08:36:37 12/25/19 21 TRANSURETHRAL RESECTION OF PROSTATE (SURG) completed Eri Currie [facility] 12/26/2020 09:51:51 12/04/19 21 Cystoscopy- male completed Mt Marroquin MD [address], [place], [address], [facility] 12/03/2020 10:19:56 11/30/19 21 Bladder Scan completed Liz Boyd [facility] 11/29/2020 15:05:15 06/06/20 20 Cystoscopy- male completed Magan Montejo MD [address], [place], [address], [facility] 06/06/2020 17:43:19 02/15/20 19 Colonoscopy completed Francisca Strong [facility] 06/24/2021 15:03:44 05/09/20 07 Colonoscopy completed Magdalena Ray [facility] 2021 09:27:33 Imaging Results Imaging Date [...] Updated DateTime 10/29/2022 180.34 cm 30.7 kg/m2 95440.32 g Ricco White [facility] 10/29/2022 15:34:11 Date Recorded Body height Body mass index (BMI) Body weight Provider Name and Address Organization Details Last Updated DateTime 12/07/2022 180.34 cm 30.7 kg/m2 47103.32 g Ricco White [facility] 12/07/2022 12:37:46 Date Recorded Body height Body mass index (BMI) Body weight Provider Name and Address Organization Details Last Updated DateTime 02/21/2024 180.34 cm 30.7 kg/m2 62828.32 g Sánchez Álvarez [facility] 02/21/2024 15:29:30 Date Recorded Body height Body mass index (BMI) Body weight Provider Name and Address Organization Details Last Updated DateTime 06/09/2021 180.34 cm 30.7 kg/m2 93894.32 g Daphney Pak [facility] 06/09/2021 16:15:14 Date Recorded Body height Body mass index (BMI) Body weight Provider Name and Address Organization Details Last Updated DateTime 12/02/2021 180.34 cm 30.7 kg/m2 42744.32 g Mt Marroquin MD [address], [place], [address], [facility] 12/02/2021 14:36:40 Social History Question Answer Notes LastModified by Organizat ion Details LastModified Time Tobacco Smoking Status Never Smoker Michael patrick [facility] 03/28/2020 15:50:18 What Is Your Level Of Alcohol Consumption? Occasional Information not available 02/21/2024 What Is Your Level Of Caffeine Consumption? 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 [email or web address] Information [...] brothe rs, uncles and male cousin s [email or web address] Not available 03/28/2020 15:49:51 Father Family history of Hypertension bothe parent had it [email or web address] Not available 03/28/2020 15:49:15 Medical History Condition Response High Blood Pressure N Kidney Stones N Depression N Lung Disease N GERD/Acid Reflux Y Sexually Transmitted Infection N Cancer N High Cholesterol Y Diabetes N Bleeding Disorder N Heart Disease Y Immunizations Vaccine Type Date Status Provider Name and Address Organization Details Recorded Time zoster recombinant 02/13/2022 completed Tatiana mckeon null, [facility] 09/09/2023 14:09:18 zoster recombinant 04/21/2022 completed Tatiana mckeon null, [facility] 09/09/2023 14:09:18 Influenza, MDCK, quadrivalent, PF 07/23/2016 [facility] 14:49:18 COVID-19, mRNA, LNP-S, PF, 100 mcg/0.5mL dose or 50 mcg/0.25mL dose 12[facility]06[facility] 14:49:18 COVID-19, mRNA, LNP-S, PF, 100 mcg/0.5mL dose or 50 mcg/0.25mL dose 01/03/2021 [facility] 14:49:18 Tdap 07/12/2012 completed [facility]23 14:49:18 zoster live 04/17/2013 [facility] 14:49:18 Influenza, split virus, trivalent, preservative 07/02/2008 completed [facility] 14:49:19 Influenza, split virus, trivalent, preservative 07/06/2007 [facility] 14:49:19 Influenza, split virus, trivalent, PF 05/26/2012 completed [facility] 14:49:19 Influenza, split virus, trivalent, PF 05/30/2013 completed [facility] 14:49:19 Influenza, split virus, trivalent, PF 06/06/2009 [facility]23 14:49:19 Influenza, split virus, trivalent, PF 06/10/2011 completed Wendy Phelps null, [facility] 05/21/2023 14:49:19 Influenza, split virus, trivalent, PF 07/03/2010 completed Wendy Phelps null, [facility] 05/21/2023 14:49:19 Influenza, split virus, trivalent, PF 07/24/2014 completed Wendy Phelps null, [facility] 05/21/2023 14:49:19 Novel [id number] 07/23/2009 completed Wendy Phelps null, [facility] 05/21/2023 14:49:19 Influenza, split virus, quadrivalent, PF 09/22/2018 completed Wendy Phelps null, [facility] 05/21/2023 14:49:19 Influenza, split virus, quadrivalent, 10/03/2019 completed Wendy Phelps null, [facility] 05/21/2023 14:49:19 Influenza, split virus, quadrivalent, 06/21/2017 completed Wendy Phelps null, [facility] 05/21/2023 14:49:19 Influenza, split virus, quadrivalent, 07/22/2020 completed Wendy Phelps null, [facility] 05/21/2023 14:49:19 Influenza, split virus, quadrivalent, PF 07/23/2009 completed Wendy Phelps null, [facility] 05/21/2023 14:49:19 Influenza, split virus, quadrivalent, 07/23/2015 completed Wendy Phelps null, [facility] 05/21/2023 14:49:19 Past Encounters Encounter ID Performer Location Encounter Start Date Encounter Closed Date Diagnosis/Indication Diagnosis SNOMED-CT Code Diagnosis ICD10 Code [id number] MD HEIDI [facility] [address] [place] [address] 03/28/2020 15:31:23 03/29/2020 12:04:24 Overactive urinary bladder 637393283 N32.81 Lower urin malaika tract symptoms due to benign prostatic hypertrophy 3831822963 9101 N40.1 [id number] MD HEIDI [facility] [address] [place] [address] 06/06/2020 15:33:07 06/07/2020 06:02:27 Lower urinary tract symptoms due to benign prostatic hypertrophy 3829930063 9101 N40.1 [id number] Magan Montejo MD [facility] [address] [place] [address] 06/06/2020 15:33:07 06/07/2020 08:54:22 [id number] Guido [facility] [address] [place] [address] 11/29/2020 11:25:54 12/02/2020 09:23:00 Dysuria 78381374 R30.9 [id number] Mt Marroquin MD [facility] [address] [place] [address] 12/03/2020 08:54:19 12/04/2020 11:10:38 Increased frequency of urination 844975055 R35.0 Benign pro static hyperplasia with outflow obstruction 890385150 N40.1 [id number] Mt Marroquin MD [facility] [address] [place], [place] [address] 01/28/2021 15:31:38 01/29/2021 10:32:41 Lower urinary tract symptoms due to benign prostatic hypertrophy 4720527301 9101 N40.1 Increased frequency of urination 653493862 R35.0 [id number] Mt Marroquin MD [facility] [address] [place], [place] [address] 03/31/2021 16:11:30 04/02/2021 09:34:47 Benign prostatic hyperplasia 463405651 N40.1 Urgent reuben luis to urinate 69486241 R39.15 [id number] Mt Marroquin MD [facility] [address] [place], [place] [address] 06/09/2021 16:01:41 06/10/2021 13:42:00 Prostate specific antigen above reference range 362530006 R97.20 Benign pro static hyperplasia with outflow obstruction 039065306 N40.1 [id number] Mt Marroquin MD [facility] [address] [place], [place] [address] 12/02/2021 14:25:46 12/03/2021 11:43:52 Benign prostatic hyperplasia with outflow obstruction 103910957 N40.1 Erectile dysfunction 860 062596 F52.21 Urge incon tinence of urine 98747486 N39.41 [id number] Rhina Kline PA-C [facility] [address] [place] [address] 10/29/2022 15:24:16 11/02/2022 10:19:45 Benign prostatic hyperplasia with outflow obstruction 133290692 N40.1 Erectile dysfunction 860 282585 F52.21 Urge incon tinence of urine 19948729 N39.41 [id number] Mt Marroquin MD [facility] [address] [place] [address] 12/07/2022 12:25:35 12/10/2022 14:26:41 Benign prostatic hyperplasia with outflow obstruction 705059021 N40.1 Urgent reuben luis to urinate 51727399 R39.15 [id number] Mt Marroquin MD [facility] [address] [place] [address] 02/21/2024 15:18:47 02/22/2024 10:20:07 Benign prostatic hyperplasia with outflow obstruction 978456501 N40.1 Family his tory of malignant neoplasm of prostate 352998476 Z80.42 Health Concerns Section Related Observation LastModified by Organization Detai ls LastModified Time None Recorded Concern Status LastModified by Organization Details LastModified Time None Recorded Advance Directives Directive None Recorded Payers Encounter Date Sequence Insurance Name Policy Number Policy Guy Covered Member ID Guy Member ID Guarantor Name 06/09/2021 2 [employer] - INDIVIDUAL AND FAMILY (O) [id number] 1 Wojciech Ramirez [id number] Wojciech Ramirez 12/02/2021 2 [employer] - INDIVIDUAL AND FAMILY (O) [id number] 1 Wojciech Ramirez [id number] Wojciech Ramirez 10/29/2022 2 [employer] - INDIVIDUAL AND FAMILY (O) [id number] 1 Wojciech Ramirez [id number] Wojciech Ramirez 12/07/2022 2 [employer] - INDIVIDUAL AND FAMILY (O) [id number] 1 Wojciech Mcnamaranelly [id number] Wojciech Ramirez 02/21/2024 2 [employer] - INDIVIDUAL AND FAMILY (HMO) [id number] 1 Wojciech Ramirez [id number] Wojciech Ramirez 02/21/2024 1 [place] [email or web address] [facility] Wojciech Ramirez Jr [id number] Wojciech Raimrez Notes Date Note Type Note Provider Name and Address Organization Details Recorded Time 06/09/2021 text/html 60-year-old male who is status post saline transurethral resection for benign disease December 24, 2020. Patient had previous greenlight laser at the [facility] with Dr. Fleming. Presented to our office with severe penile discomfort, urinary urgency, frequency and very slow stream. Patient symptoms have markedly improved. Pathology was benign. Focal chronic inflammation was noted. Patient's postvoid residual today is 0. Serum PSA 1.3 Mt Marroquin MD [address] [place] [address],[address], [address], [facility] 06/09/2021 18:16:55 12/02/2021 text/html 61-year-old male with history of prior greenlight laser at the [facility] with continued obstruction secondary to a ball-valve middle lobe prostate. Status post saline bipolar resection by me. Pain has completely resolved and good force of stream. Continues to have urge and occasional urge incontinence. Has improved after initiating physical therapy for low back issues. PSA remains 1.3. Postvoid 0. Urinalysis trace small blood Mt Marroquin MD [address] [place] [address],[address], [address], [facility] 12/02/2021 15:37:13 10/29/2022 text/html 61-year-old male with history of prior greenlight laser at the [facility] with continued obstruction secondary to a ball-valve [...] on sildenafil with no issues. UA today negativePVR today 23cc Rhina Kline PA-C [address], [place], [address], [facility] 10/29/2022 16:50:45 12/07/2022 text/html 61-year-old male with history of prior green light laser at the [facility] with continued obstruction secondary to a ball-valve middle lobe prostate. Patient was also experiencing constant pain subsequent to the procedure. He is now status post saline bipolar resection by ct December 24, 2020. Pain has completely resolved and good force of stream. Continues to have urge and occasional urge incontinence. Has improved after initiating physical therapy for low back issues.10/28/22: Patient of Dr. Marroquin here for urinary [...] on sildenafil with no issues. UA today negativePVR today 23ccMost recent PSA from 1 year ago measured 1.3 Patient has degenerative arthritis in both knees. Prior total knee arthroplasty failed. Currently seeing a new orthopedic surgeon Dr. Denton Barnett with plans to pursue bilateral total knee arthroplasty Mt Marroquin MD [address], [place], [address], [facility] 12/07/2022 14:06:45 02/21/2024 text/html 63-year-old gentleman well-known to me. History of BPH and associated obstructive and irritative voiding symptoms. Also family history of prostate cancer. Patient underwent greenlight laser in 2019 at the [facility] which failed to relieve his obstructive symptoms [...] a patient of Dr. Denton Marroquin MD [address] [place] [address],[address], [place], [address], [facility] 02/21/2024 17:23:40
--- OUTSIDE RECORDS SUMMARY | 2024-08-25 17:49 | XMS_ITS | Clinical Summary ---
Author Organization [facility] Address [address] [place] [address]. [place] [address] Care Team Providers Care Urban Design Consultant Name Role Phone No Ref-Primary, Physician Primary Care Provider Allergies Active Allergy Reactions Criticality Noted Date Comments Morphine Nausea and Vomiting 08/23/2020 Medications ammonium lactate (AMLACTIN) 12 % external creamIndication s:Callus Apply to calluses daily/twice daily as needed. 140 g 1 9 Active Additional Information Patient not taking.Reported on 08/05/2020 atorvastatin (LIPITOR) 20 MG tablet daily Active aspirin (ASA) 325 MG tablet Take 325 mg by mouth every 24 hours Active tamsulosin (FLOMAX) 0.4 MG capsule Take 0.4 mg by mouth daily Active rosuvastatin (CRESTOR) 20 MG tablet Take 20 mg by mouth 2 Active Hospital, Clinic, or Other Facility Administered Medication [...] Recorded Sex Assigned at Not on file Legal Sex Male 3:44 AM STRATEGY MANAGER Gender Identity Not on file Sexual Orientation Not on file Last Filed Vital Signs Vital Sign Reading Time Taken Comments Blood Pressure 118/72 10/08/2022 1:56 PM STRATEGY MANAGER Pulse - - Temperature - - Respiratory Rate - - Oxygen Saturation - - Inhaled Oxygen Concentration - - Weight 99.8 kg (220 lb) 10/08/2022 1:56 PM STRATEGY MANAGER Height 180.3 cm (5' 11) 10/08/2022 1:56 PM STRATEGY MANAGER Body Mass Index 30.68 10/08/2022 1:56 PM STRATEGY MANAGER Plan of Treatment Health Maintenance Due Date [...] calendar year) 2023 COVID-19 Vaccine (3 - season) 2024 01/03/2021, 12/06/2020 INFLUENZA VACCINE (#1) [...] on patient's age to complete this topic Insurance [facility] [employer] Care Teams Urban Design Consultant Relationship Specialty Start Date End Date No Ref-Primary, Physician PCP - General 10/08/22
--- OUTSIDE RECORDS SUMMARY | 2024-08-25 17:49 | XMS_ITS | Referral Summary ---
Author Organization [facility] Address [address] [place] [address]. [place] [address] Care Team Providers Care Pathology Secretary Name Role Phone No Ref-Primary, Physician Primary [...] on file Legal Sex Male 3:44 AM METEOROLOGICAL EQUIPMENT REPAIRER Gender Identity Not on file Sexual Orientation Not on file Last Filed Vital Signs Vital Sign Reading Time Taken Comments Blood Pressure 118/72 10/08/2022 1:56 PM METEOROLOGICAL EQUIPMENT REPAIRER Pulse - - Temperature - - Respiratory Rate - - Oxygen Saturation - - Inhaled Oxygen Concentration - - Weight 99.8 kg (220 lb) 10/08/2022 1:56 PM METEOROLOGICAL EQUIPMENT REPAIRER Height 180.3 cm (5' 11) 10/08/2022 1:56 PM METEOROLOGICAL EQUIPMENT REPAIRER Body Mass Index 30.68 10/08/2022 1:56 PM METEOROLOGICAL EQUIPMENT REPAIRER Plan of Treatment Not on file Insurance [facility] [employer] Care Teams Pathology Secretary Relationship Specialty Start Date End Date No Ref-Primary, Physician PCP - General 10/08/22
--- NOTE | 2024-08-25 18:43 | CRLHL7_ITS ---
For Patients: As a result of the Century Cures Act, medical imaging exams and procedure reports are released immediately into your electronic medical record. You may view this report before your referring provider. If you have questions, please contact your health care provider. INDICATION: Right lower chest pain. TECHNIQUE: Chest and laterality rib radiographs, 3 views. COMPARISON: Chest radiographs 05/26/2023. FINDINGS: Cardiovascular/Mediastinum: Normal heart size. Unremarkable. Lungs: No focal consolidation. Airways: Trachea remains midline. Pleura: No pleural effusions or pneumothorax. Bones: No acute osseous abnormalities. No acute displaced rib fractures on the dedicated oblique views . Upper abdomen: Unremarkable. IMPRESSION: No acute cardiopulmonary process. No acute displaced rib fractures, pleural effusions or pneumothorax. Dictated by Costa Dewey MD @ 08/25/2024 7:28:57 PM (Electronically Signed)
[2024-08-25] MEDS: IBUPROFEN 400 MG TABLET 800 MG PO (18:50)
[2024-08-25 20:24] LABS: Basophils Absolute Auto 0.02 K/uL (0.00-0.30); Basophils Percent Auto 0.4 % (0.0-3.0); Eosinophils Absolute Auto 0.08 K/uL (0.00-0.50); Eosinophils Percent Auto 1.5 % (0.0-7.0); Hematocrit 43.1 % (37.0-53.0); Hemoglobin* 14.3 gm/dL (13.5-17.5); Lymphocytes Percent Auto 13.5 % (20-44); Mean Corpuscular HGB Conc 33 gm/dL (32-36); Mean Corpuscular Hemoglobin 29 pg (26-34); Mean Corpuscular Volume 87 fL (80-100); Monocytes Percent Auto 8.9 % (0.0-11.0); Neutrophils Percent Auto 75.7 % (42.0-72.0); Platelet Count* 182 K/uL (140-440); Red Blood Count 4.97 m/uL (4.30-5.90); White Blood Count* 5.41 K/uL (4.50-11.00)
[2024-08-25 20:34] LABS: Slide Review Reflex No
[2024-08-25 20:36] LABS: Albumin* 3.8 g/dL (3.3-5.0); Chloride* 108 mmol/L (96-114); Sodium* 138 mmol/L (135-149)
[2024-08-25 20:37] LABS: Potassium* 4.1 mmol/L (3.6-5.1)
[2024-08-25 20:39] LABS: Creatinine* 0.8 mg/dL (0.5-1.5); Est. Creatinine Clearance* 77.39; Estimated Glomerular Filt Rate 98 ml/min
[2024-08-25 20:40] LABS: Alanine Aminotransferase* 23 U/L (4-50); Alkaline Phosphatase* 61 U/L (40-150); Anion Gap 4 mEq/L (7-15); Aspartate Amino Transferase* 23 U/L (12-35); Bilirubin Direct* 0.2 mg/dL (0.0-0.5); Bilirubin Total* 0.3 mg/dL (0.1-1.5); Blood Urea Nitrogen* 27 mg/dL (7-30); Carbon Dioxide* 26 mmol/L (20-32); Glucose* 90 mg/dL (60-115); Total Protein* 6.1 g/dL (6.0-8.3)
[2024-08-25 20:41] LABS: Calcium* 9.1 mg/dL (8.4-10.6)
[2024-08-25 20:46] LABS: C Reactive Protein* < 0.5 mg/dL (0.5-1.0)
== END 2024-08-25 21:25 | disposition home or self-care (01) ==
PROVIDERS: Emergency Provider Family Medicine; PCP Family Medicine
DX: R07.89 Other chest pain (principal)
CPT/HCPCS: 36415; 71101; 80048; 80076; 85025; 86140; 99284; A9270

== ENCOUNTER 2024-11-03 09:43 | Emergency (ER) | payer MEDICARE, OTHER, SELFPAY ==
--- OUTSIDE RECORDS SUMMARY | 2024-11-03 09:46 | XMS_ITS | Data Portability ---
Author Organization [facility] Address [address] [place] [address] Care Team Providers Care [employer] Person Name Role Phone ALLEN SUH Primary Care Provider Assessment No assessment recorded. Plan of Treatment Reminders Order Date Submit Date Provider Last Modified By Organization Details Last Modified Time Details Appointments None recorded. Lab PSA, serum or plasma 2023 024 [email or web address] [facility], [address], [place], [address], 4 15:58:04 urinalysis, dipstick 2022 023 [email or web address] [facility], [address], [place], [address], 3 12:39:06 urinalysis, dipstick 2022 023 ssamb [facility], [address], [place], [address], 3 15:38:49 urinalysis, dipstick 2021 022 [email or web address] 1 Not available 2 14:43:00 PSA, serum or plasma 2021 022 [email or web address] 1 Not available 2 14:43:00 PSA, serum or plasma 2020 021 LIZET Not available 08:57:40 Referral None recorded. Procedures None recorded. Surgeries None recorded. Imaging None recorded. Medication Orders Gemtesa 75 mg tablet 2022 023 [facility], [address] [facility], [place], [address], 3 12:59:36 sildenafil (pulmonary hypertensio n) 20 mg tablet 2022 023 [facility], [address] [facility], [place], [address], 3 16:49:26 sildenafil (pulmonary hypertensio n) 20 mg tablet 2021 022 [facility], [address] [facility], [place], [address], 14:43:07 Gemtesa 75 mg tablet 2021 022 [facility], [address] [facility], [place], [address], 3 15:36:33 Patient TargetsNo targets recorded. Patient InstructionsNo instructions recorded. Reason for Referral None Reported. Results Created Date Observation Date Name Description Value Unit Range Abnormal Flag Note LastModifiedBy Organization Detail LastModifiedTime 06/10/2006/10/2021 PSA, serum or plasm a PSA, Total 1.3 ng/mL Not Available [facility] [address], [place], [address], 06/09/2021 16:17:01 12/03/19 22 12/02/2021 PSA, serum or plasm a PSA, Total 1.3ng/ mL Not Available [facility] [address], [place], [address], 12/02/2021 14:42:25 12/03/19 22 12/02/2021 urina lysis , dipst ick Color-Status Yellow Not Available [facility] [address], [place], [address], 12/02/2021 14:41:29 12/03/19 22 12/02/2021 urina lysis , dipst ick Clarity-Stat us Clear Not Available [facility] [address], [place], [address], 12/02/2021 14:41:29 12/03/19 22 12/02/2021 urina lysis , dipst ick Glucose-Stat us Negati ve Not Available [facility] [address], [place], [address], 12/02/2021 14:41:29 12/03/19 22 12/02/2021 urina lysis , dipst ick Bilirubin-St atus Negati ve Not Available [facility] [address], [place], [address], 12/02/2021 14:41:29 12/03/19 22 12/02/2021 urina lysis , dipst ick Ketones-Stat us Negati ve Not Available [facility] [address], [place], [address], 12/02/2021 14:41:29 12/03/19 22 12/02/2021 urina lysis , dipst ick Sp [place]-Stat us 1.025 Not Available [facility] [address], [place], [address], 12/02/2021 14:41:29 12/03/19 22 12/02/2021 urina lysis , dipst ick pH-Status 5.5 Not Available [facility] [address], [place], [address], 12/02/2021 14:41:29 12/03/19 22 12/02/2021 urina lysis , dipst ick Urobilinogen -Status 0.2 Not Available [facility] [address], [place], [address], 12/02/2021 14:41:29 12/03/19 22 12/02/2021 urina lysis , dipst ick Nitrates-Sta tus negati ve Not Available [facility] [address], [place], [address], 12/02/2021 14:41:29 12/03/19 22 12/02/2021 urina lysis , dipst ick Blood-Status Trace Not Available [facility] [address], [place], [address], 12/02/2021 14:41:29 12/03/19 22 12/02/2021 urina lysis , dipst ick Leuko-Status Negati ve Not Available [facility] [address], [place], [address], 12/02/2021 14:41:29 12/03/19 22 12/02/2021 urina lysis , dipst ick Specimen Type Voided Not Available [facility] [address], [place], [address], 12/02/2021 14:41:29 10/29/19 23 10/29/2022 urina lysis , dipst ick Color-Status Yellow Not Available [facility] [address], [place], [address], 10/29/2022 15:38:28 10/29/19 23 10/29/2022 urina lysis , dipst ick Clarity-Stat us Clear Not Available [facility] [address], [place], [address], 10/29/2022 15:38:28 10/29/19 23 10/29/2022 urina lysis , dipst ick pH-Status 6.5 Not Available [facility] [address], [place], [address], 10/29/2022 15:38:28 12/08/19 23 12/07/2022 urina lysis , dipst ick Color-Status Yellow Not Available [facility] [address], [place], [address], 12/07/2022 12:38:45 12/08/19 23 12/07/2022 urina lysis , dipst ick Clarity-Stat us Clear Not Available [facility] [address], [place], [address], 12/07/2022 12:38:45 12/08/19 23 12/07/2022 urina lysis , dipst ick pH-Status 6.0 Not Available [facility] [address], [place], [address], 12/07/2022 12:38:45 02/21/20 24 02/21/2024 PSA, serum or plasm a PSA 1.8 ng/mL 0-4.0 NG/mL Not Available [facility] [address], [place], [address], 02/21/2024 15:30:48 06/17/20 21 06/09/2021 bladd er [...] Time Prostate specific antigen above reference range 053791711 Completed 202006/09/2021 Daphney patrick [place] [facility] 16:16:23 Benign prostatic hyperplas ia with outflow obstructi on 437807664 Active 2020 Daphney patrick [facility] 1 16:16:33 Obstructi ve sleep apnea of adult 181149240122 3 Active 2011 Sánchez patrick [facility] 4 15:29:43 Degenerat ion of lumbar intervert ebral disc 47180926 Active 2017 Sánchez patrick [facility] 4 15:29:43 Arthropat hy of lumbar facet joint 960565408 Active 2017 Mendez Henri patrick [facility] 4 15:29:43 Atrial fibrillat ion 24087092 Active 2007 Mendez Henri patrick [facility] 4 15:29:43 Problem Notes None recorded. Procedures Surgical History Date Name Laterality Status Provider Name and Address Organization Details Recorded Time 02/21/20 24 CLAIMS EXAMINER/blood draw completed Sánchez Álvarez [facility] 02/21/2024 15:30:42 12/08/19 23 Bladder Scan completed Ricco White [facility] 12/07/2022 12:38:40 10/29/19 23 Bladder Scan completed Rhina Kline PA-C [address], [place], [address], [facility] 10/29/2022 15:51:07 12/03/19 22 Bladder Scan completed Liz Boyd [facility] 12/02/2021 14:43:15 12/03/19 22 Blood Draw/CLAIMS EXAMINER/PSA RESULTS completed Liz Boyd [facility] 12/02/2021 14:50:43 06/09/20 21 Bladder Scan completed Daphney Pak [facility] 06/09/2021 16:16:56 03/31/20 21 Bladder Scan completed Jessica Oconnor [facility] 03/31/2021 16:40:16 01/29/20 21 Bladder Scan completed Mt Marroquin MD [address], [place], [address], [facility] 01/28/2021 15:53:39 12/25/19 21 TRANSURETHRAL RESECTION OF PROSTATE (SURG) completed Magdalena Ray [facility] 12/25/2020 08:36:37 12/25/19 21 TRANSURETHRAL RESECTION OF PROSTATE (SURG) completed Eri Currie [facility] 12/26/2020 09:51:51 12/04/19 21 Cystoscopy- male completed Mt Marroquin MD [address], [place], [address], [facility] 12/03/2020 10:19:56 11/30/19 21 Bladder Scan completed Liz Boyd [facility] 11/29/2020 15:05:15 06/06/20 20 Cystoscopy- male completed Magan Montejo MD [address], [place], [address], [facility] 06/06/2020 17:43:19 02/15/20 19 Colonoscopy completed Francisca Strong [facility] 06/24/2021 15:03:44 05/09/20 07 Colonoscopy completed Magdalena Ray [facility] 2021 09:27:33 Imaging Results Imaging Date [...] Updated DateTime 10/29/2022 180.34 cm 30.7 kg/m2 96762.32 g Ricco White [facility] 10/29/2022 15:34:11 Date Recorded Body height Body mass index (BMI) Body weight Provider Name and Address Organization Details Last Updated DateTime 12/07/2022 180.34 cm 30.7 kg/m2 58201.32 g Ricco White [facility] 12/07/2022 12:37:46 Date Recorded Body height Body mass index (BMI) Body weight Provider Name and Address Organization Details Last Updated DateTime 02/21/2024 180.34 cm 30.7 kg/m2 95003.32 g Sánchez Álvarez [facility] 02/21/2024 15:29:30 Date Recorded Body height Body mass index (BMI) Body weight Provider Name and Address Organization Details Last Updated DateTime 06/09/2021 180.34 cm 30.7 kg/m2 84384.32 g Daphney Pak [facility] 06/09/2021 16:15:14 Date Recorded Body height Body mass index (BMI) Body weight Provider Name and Address Organization Details Last Updated DateTime 12/02/2021 180.34 cm 30.7 kg/m2 32199.32 g Mt Marroquin MD [address], [place], [address], [facility] 12/02/2021 14:36:40 Social History Question Answer Notes LastModified by Organizat ion Details LastModified Time Tobacco Smoking Status Never Smoker Michael patrick [facility] 03/28/2020 15:50:18 What Is Your Level Of Alcohol Consumption? Occasional Information not available 02/21/2024 What Is Your Level Of Caffeine Consumption? Occasional Information not available 02/21/2024 What Is Your Occupation? [employer] [email or web address] Information [...] brothe rs, uncles and male cousin s [email or web address] Not available 03/28/2020 15:49:51 Father Family history of Hypertension bothe parent had it [email or web address] Not available 03/28/2020 15:49:15 Medical History Condition Response Diabetes N Sexually Transmitted Infection N Bleeding Disorder N High Blood Pressure N Kidney Stones N Cancer N Lung Disease N Depression N High Cholesterol Y GERD/Acid Reflux Y Heart Disease Y Immunizations Vaccine Type Date Status Note Provider Nam e and Address Organization Details Recorded Time zoster recombinant 2 completed Tatiana Saeid null, [facility] 09/09/2023 14:09:18 zoster recombinant 2 completed Tatiana Merissaka null, [facility] 09/09/2023 14:09:18 Influenza, MDCK, quadrivalent, PF 6 [facility] 14:49:18 COVID-19, mRNA, LNP-S, PF, 100 mcg/0.5mL dose or 50 mcg/0.25mL dose 1 completed [facility]2023 14:49:18 COVID-19, mRNA, LNP-S, PF, 100 mcg/0.5mL dose or 50 mcg/0.25mL dose 1 [facility]23 14:49:18 Tdap 2 completed [facility]23 14:49:18 zoster live 3 completed [facility]23 14:49:18 Influenza, split virus, trivalent, preservative 8 completed [facility]amp [facility]23 14:49:19 Influenza, split virus, trivalent, preservative 7 completed Wendy Phelps null, [facility] 05/21/2023 14:49:19 Influenza, split virus, trivalent, PF 2 completed Wendy Phelps null, [facility] 05/21/2023 14:49:19 Influenza, split virus, trivalent, PF 3 completed [facility] 14:49:19 Influenza, split virus, trivalent, PF 9 completed [facility]23 14:49:19 Influenza, split virus, trivalent, PF 1 completed Wendy Phelps null, [facility] 05/21/2023 14:49:19 Influenza, split virus, trivalent, PF 0 completed Wendy Phelps null, [facility] 05/21/2023 14:49:19 Influenza, split virus, trivalent, PF 4 completed Wendy Phelps null, [facility] 05/21/2023 14:49:19 Novel [id number] completed Wendy Phelps null, [facility] 05/21/2023 14:49:19 Influenza, split virus, quadrivalent, PF 9 completed Wendy Phelps null, [facility] 05/21/2023 14:49:19 Influenza, split virus, quadrivalent, PF 0 completed Wendy Phelps null, [facility] 05/21/2023 14:49:19 Influenza, split virus, quadrivalent, PF 7 completed Wendy Phelps null, [facility] 05/21/2023 14:49:19 Influenza, split virus, quadrivalent, PF 0 completed Wendy Phelps null, [facility] 05/21/2023 14:49:19 Influenza, split virus, quadrivalent, PF 9 completed Wendy Phelps null, [facility] 05/21/2023 14:49:19 Influenza, split virus, quadrivalent, PF 5 completed Wendy Phelps null, [facility] 05/21/2023 14:49:19 Past Encounters Encounter ID Performer Location Encounter Start Date Encounter Closed Date Diagnosis/Indication Diagnosis SNOMED-CT Code Diagnosis ICD10 Code Diagnosis Note [id number] MD HEIDI [facility] [address], [place] [address] 03/28/2020 15:31:23 03/29/2020 12:04:24 Overactive urinary bladder 379960113 N32.81 Will try Myrbetriq. Discussed common side effects RTC 2-3 mo with PSA, PVR, AUA SS Lower urin malaika tract symptoms due to benign prostatic hypertrophy 9522858378 9101 N40.1 continue tamsulosin [id number] Magan Montejo MD _[facility] [address] [place] [address] 06/06/2020 15:33:07 06/07/2020 06:02:27 Lower urinary tract symptoms due to benign prostatic hypertrophy 6610422227 9101 N40.1 - We discussed his diagnosis of BPH with bladder outlet obstructio n including options of medical management with alpha-bloc ker therapy and/or 5-alpha reductase inhibitors including typical side effects and expectatio ns. We went on to discuss clinic based procedures (Rezum and Urolift), but due to his large obstructin g median lobe, he is not an ideal candidate for these. We also discussed TURP, typical hospitaliz ation and convalesce nce, catheter duration, success rates, risks and side effects. We discussed that these medication s and procedures are intended to treat obstructiv e symptoms of enlarged prostate, but may not help with overactive bladder type symptoms. All questions were answered. - He is considerin g scheduling TURP in August after harvest season; given TURP booklet and scheduling info; continue tamsulosin for now. [id number] Magan Montejo MD _[facility] [employer] [address] [place] [address] 06/06/2020 15:33:07 06/07/2020 08:54:22 [id number] Guido [facility] [address] [place] [address] 11/29/2020 11:25:54 12/02/2020 09:23:00 Dysuria 19185942 R30.9 [id number] Mt Marroquin MD _[employer] [place] [address] 12/03/2020 08:54:19 12/04/2020 11:10:38 Increased frequency of urination 278419874 R35.0 Benign pro static hyperplasia with outflow obstruction 160569011 N40.1 The patient has obstructiv e prostatism with bladder outlet obstructio n and significan t voiding symptoms. He has had a failedgree nlightlase r with significan t residual tissue, specifical ly a large ball-valve intravesic al middle lobe. He is unable to void normally and is having difficulty sleeping. He is interested in pursuing therapy as soon as possible . I have suggested a saline transureth ral resection of the prostate. This will be performed at [facility]. The procedure, risks, possible complicati ons and postoperat ana maria course were fully reviewed. He is in agreement and we will schedule this in the near future [id number] MD Gagan Khalil. [place] [address] 01/28/2021 15:31:38 01/29/2021 10:32:41 Lower urinary tract symptoms due to benign prostatic hypertrophy 6936657079 9101 N40.1 Post saline TURP with good results. Reassured patient that his symptoms should continue to improve. If he has persistent discomfort he is going to add ibuprofen 200 mg 1-2 times daily. At advised to increase his fluids significan tly and he should not take this any longer than 4 to 6 weeks. Follow-up 2 months Increased frequency of urination 219195693 R35.0 [id number] MD Gagan Khalil. [address] [place] [address] 03/31/2021 16:11:30 04/02/2021 09:34:47 Benign prostatic hyperplasia 872909292 N40.1 Urgent reuben luis to urinate 37026169 R39.15 Patient has urinary urgency. It is greatly improved after the resection but is not to the baseline that he prefers. He is going to wean off the oxybutynin to see if this helps or hurts. We will then make an attempt to trial Myrbetriq if indicated at that time. We will make arrangemen ts to see him in 3 months with a serum PSA AUA score and postvoid residual [id number] MD Gagan Khalil. [place] [address] 06/09/2021 16:01:41 06/10/2021 13:42:00 Prostate specific antigen above reference range 941383739 R97.20 Benign pro static hyperplasia with outflow obstruction 456239161 N40.1 Status post successful saline TURP for a large ball-valve intravesic al middle lobe. Postop failed PVP laser at [facility]. Patient satisfied. PSA low and no cancer on pathology. Advised follow-up PSA, AUA score, PVR and rectal exam 1 year [id number] Mt Marroquin MD _[facility] [employer] [address] [place] [address] 12/02/2021 14:25:46 12/03/2021 11:43:52 Benign prostatic hyperplasia with outflow obstruction 097020418 N40.1 S/P TURP with good FOS, emptys. No pain. Erectile dysfunction 860 083727 F52.21 refill sildenafil Urge incon tinence of urine 88466206 N39.41 The patient is going to continue physical therapy and if his urge and urge incontinen ce improves he will continue to observe. However if this persists he will start gemtesa 75 mg daily. Discussed potential side effects were which are limited [id number] Rhina Kline PA-C _[facility] [employer] [address] [place] [address] 10/29/2022 15:24:16 11/02/2022 10:19:45 Benign prostatic hyperplasia with outflow obstruction 199500626 N40.1 S/P TURP with good FOS, empties. No pain. Erectile dysfunction 860 362566 F52.21 Doing well on sildenafil . - refill provided today for sildenafil Urge incon tinence of urine 33777124 N39.41 Having worsening urgency and urge incontinen ce. Did not try Gemtesa that Dr. Marroquin prescribed November 2021. Discussed trial of Gemtesa. Reviewed possible side effects, which are limited. - start Gemtesa 75 mg once daily- 1 month sample of Gemtesa provided today in clinic- f/u with Dr. Marroquin in 4-6 weeks to assess symptoms, consider alternate medication if not effective [id number] Mt [facility] [address] [place] [address] 12/07/2022 12:25:35 12/10/2022 14:26:41 Benign prostatic hyperplasia with outflow obstruction 341654597 N40.1 S/P TURP with good FOS, emptys. No pain. Urgent reuben luis to urinate 78608568 R39.15 Patient has urinary urgency. It is greatly improved after the resection but is not to the baseline that he prefers. The patient is going to continue to use Gemtesa 75 mg daily. I do not believe this has any effect on the pain and lack of function in his knees. Follow-up 1 year PSA rectal exam. [id number] Mt Marroquin MD [facility] [address] [place] [address] 02/21/2024 15:18:47 02/22/2024 10:20:07 Benign prostatic hyperplasia with outflow obstruction 652009071 N40.1 S/P TURP with good FOS, emptys. No pain. Follow-up as needed Family his tory of malignant neoplasm of prostate 920524446 Z80.42 Yearly serum PSA plus or minus [facility] Concerns Section Related Observation LastModified by Organization Detai ls LastModified Time None Recorded Concern Status LastModified by Organization Details LastModified Time None Recorded Advance Directives Directive None Recorded Payers Encounter Date Sequence Insurance Name Policy Number Policy Guy Covered Member ID Guy Member ID Guarantor Name 06/09/2021 2 [employer] - INDIVIDUAL AND FAMILY (O) [id number] 1 Wojciech Ramirez [id number] Wojciech Ramirez 12/02/2021 2 [employer] FAMILY (O) [id number] 1 Wojciech Ramirez [id number] Wojciech Ramirez 10/29/2022 2 [employer] - IN[employer] FAMILY (O) [id number] 1 Wojciech Ramirez [id number] Wojciech Ramirez 12/07/2022 2 [employer] - INDIVIDUAL AND FAMILY (O) [id number] 1 Wojciech Ramirez [id number] Wojciech Ramirez 02/21/2024 2 [employer] - INDIVIDUAL AND FAMILY (O) [id number] 1 Wojciech Ramirez [id number] Wojciech Ramirez 02/21/2024 1 [place] [employer] Wojciech Ramirez Jr [id number] Wojciech Ramirez Notes Date Note Type Note Provider Name and Address Organization Details Recorded Time 06/09/2021 text/html 60-year-old male who is status post saline transurethral resection for benign disease December 24, 2020. Patient had previous greenlight laser at the [facility] with Dr. Fleming. Presented to our office with severe penile discomfort, urinary urgency, frequency and very slow stream. Patient symptoms have markedly improved. Pathology was benign. Focal chronic inflammation was noted. Patient's postvoid residual today is 0. Serum PSA 1.3 Mt Marroquin MD [address], [place], [address], [facility] 06/09/2021 18:16:55 12/02/2021 text/html 61-year-old male with history of prior greenlight laser at the [facility] with continued obstruction secondary to a ball-valve middle lobe prostate. Status post saline bipolar resection by me. Pain has completely resolved and good force of stream. Continues to have urge and occasional urge incontinence. Has improved after initiating physical therapy for low back issues. PSA remains 1.3. Postvoid 0. Urinalysis trace small blood Mt Marroquin MD [address], [place], [address], [facility] 12/02/2021 15:37:13 10/29/2022 text/html 61-year-old male with history of prior greenlight laser at the [facility] with continued obstruction secondary to a ball-valve [...] negativePVR today 23cc Rhina Kline PA-C [address], [place], [address], [facility] 10/29/2022 16:50:45 12/07/2022 text/html 61-year-old male with history of prior green light laser at the [facility] with continued obstruction secondary to a ball-valve [...] total knee arthroplasty Mt Marroquin MD [address], [place], [address], [facility] 12/07/2022 14:06:45 02/21/2024 text/html 63-year-old gentleman well-known to me. History of BPH and associated obstructive and irritative voiding symptoms. Also family history of prostate cancer. Patient underwent greenlight laser in 2019 at the [facility] which failed to relieve his obstructive symptoms [...] a patient of Dr. Denton Marroquin MD [address] [place] [address],[address], [place], [address], [facility] 02/21/2024 17:23:40
--- OUTSIDE RECORDS SUMMARY | 2024-11-03 09:46 | XMS_ITS | Clinical Summary ---
Author Organization [place] Address [address] [place] [address]. [place] [address] Care Team Providers Care Screener Perfumer Name Role Phone No Ref-Primary, Physician Primary [...] Take 20 mg by mouth 2 Active Active Problems No known active problems Social History Tobacco Use Types Packs/Day Years Used Date Smoking Tobacco: Never Smokeless Tobacco: Never Tobacco Cessation:Counseling Given: Yes Adolescent Education Answer Date Record ed Getting School Help Needed Not on file 06/22 Sex and Gender Information Value Date Recorded Sex Assigned at Not on file Legal Sex Male 3:44 AM TENNIS NET MAKER Gender Identity Not on file Sexual Orientation Not on file Last Filed Vital Signs Vital Sign Reading Time Taken Comments Blood Pressure 118/72 10/08/2022 1:56 PM TENNIS NET MAKER Pulse - - Temperature - - Respiratory Rate - - Oxygen Saturation - - Inhaled Oxygen Concentration - - Weight 99.8 kg (220 lb) 10/08/2022 1:56 PM TENNIS NET MAKER Height 180.3 cm (5' 11) 10/08/2022 1:56 PM TENNIS NET MAKER Body Mass Index 30.68 10/08/2022 1:56 PM TENNIS NET MAKER Plan of Treatment Health Maintenance Due Date Last Done Comments ADVANCE CARE PLANNING 1958 ANNUAL REVIEW OF HM ORDERS 1958 CT COLONOGRAPHY 1958 FIT 1958 FLEX SIG 1958 GLUCOSE 1958 LIPID 1958 sDNA (Cologuard) 1958 COLONOSCOPY 1968 COLORECTAL CANCER SCREENING 1968 HEPATITIS C SCREENING 1976 Pneumococcal Vaccine: 50+ Years (1 of 1 - PCV) 2008 DTAP/TDAP/TD IMMUNIZATION (2 - Td or Tdap) 07/12/2022 07/12/2012 FALL RISK ASSESSMENT 2023 MEDICARE ANNUAL WELLNESS VISIT 2023 COVID-19 Vaccine (3 - season) 2024 01/03/2021, 12/06/2020 INFLUENZA VACCINE (#1) 2024 , 10/03/2019, 06/06/2019, Additional history exists PHQ-2 (once per calendar year) 2024 RSV VACCINE (1 - 1-dose 75+ series) [...] patient's age to complete this topic Insurance [facility] INDIVIDUAL FAMILY PLANS Care Teams Screener Perfumer Relationship Specialty Start Date End Date No Ref-Primary, Physician PCP - General 10/08/22
--- OUTSIDE RECORDS SUMMARY | 2024-11-03 09:46 | XMS_ITS | Clinical Summary ---
Author Organization [facility] Address [place], [place] [address] Care Team Providers Care Windows Server Administrator Name Role Phone Elbert Sloan MD Primary Care Provider [phone] Maria Esther Godwin MBBS Unavailable [phone] Allergies Active Allergy Reactions Criticality Noted Date Comments Morphine Nausea And Vomiting 08/23/2020 Medications acetaminophen (TYLENOL EXTRA STRGTH) 500 mg tablet Take 1,000 mg by mouth every 6 hours if needed. Max acetaminophen dose: 4000mg in 24 hrs. Active docusate (COLACE) 100 mg capsule Take 100 mg by mouth once daily. Active multivitamins-mine rals-lutein (Multivitamin 50 Plus) tab tablet Take 1 Tablet by mouth once daily. Active omeprazole (PRILOSEC-OTC) 20 mg tablet Take 20 mg by mouth once daily. Active aspirin (ECOTRIN) 81 mg enteric coated tablet Take 1 Tablet (81 mg) by mouth once daily. 0 10/15/19 23 Active rosuvastatin (CRESTOR) 40 mg tabletIndications: Hyperlipidemia, unspecified hyperlipidemia type Take 1 Tablet (40 mg) by mouth once daily. 12/27/19 24 Active testosterone (AndroGeL) 20.25 mg/1.25 gram (1.62 %) glpm transdermal gelIndications:Low testosterone in male Apply 1 pump (20.25 mg) on dry, clean, hairless skin once daily in the morning. To clean, dry, intact skin of the shoulders and upper arms. Do NOT apply to any other parts of the body. 2 g 1 04/25/20 24 Active Active Problems Problem Noted Date Diagnosed [...] alcohol) 3 drinks per week at most Interpersonal Safety Answer Date Record ed Are you being hit, kicked, p ushed or yelled at (see row info)? No 01/28/2024 Interpersonal Safety Abuse 12 - 18 Not on file 01/28/2024 Interpersonal Safety Ambulatory Vulnerability No t on file 01/28/2024 Sex and Gender Information Value Date Recorded Sex Assigned at Not on file Legal Sex Male 6:53 AM GROUNDS PERSON Gender Identity Not on file Sexual Orientation [...] [place] [phone] Maria Esther Godwin MBBS [address] [place] [address] Health Maintenance Due Date Last Done Comments Depression screening for age 12+ 1970 Hepatitis C screening for ag e 18-79 1976 Pneumococcal series for age 50+ (1 of 2 - PCV) 1977 Colonoscopy through age 75 2003 RSV vaccine for adults or (1 - Risk 60-74 years 1-dose series) 2018 Tetanus booster 07/12/2022 07/12/2012 Medicare Wellness for age 65+ 2023 COVID-19 vaccine series ( - season) 2024 01/03/2021, 12/06/2020 Influenza for age [...] - 199 mg/dL 04/13/2024 4:42 PM CDT [facility] Comment: Cholesterol, Total Reference Ranges Desirable <200 mg/dL Borderline 200-239 mg/dL High >=240 mg/dL TRIGLYCERIDES 161(H) <150 mg/dL 04/13/2024 4:42 PM CDT [facility] HDL CHOLESTEROL 47 >40 mg/dL 4:42 PM CDT [facility] NON-HDL CHOLESTEROL 101 <145 mg/dl 04/13/2024 4:42 PM CDT [facility] CHOL/HDL RATIO 3.15 <4.50 04/13/2024 4:42 PM CDT [facility] LDL CHOLESTEROL 69 <=130 mg/dL 04/13/2024 4:42 PM CDT [facility] VLDL CHOLESTEROL 32(H) <=30 mg/dL 04/13/2024 4:42 PM CDT [facility] PROVIDER ORDERED STATUS RANDOM 04/13/2024 4:42 PM CDT [facility] Blood BLOOD SPECIMEN / Unknown Venipuncture / Unknown 04/13/2024 9:44 AM CDT 04/13/2024 9:44 AM CDT Gem Cho NP CHEMISTRY Final R esult [facility] [address] [place] [address], from Last 3 Months or Most Recently Relevant to Health Maintenance Insurance MEDICARE PB ONLY MEDICARE PART B HB ONLY MEDICARE PART A HB ONLY UCARE MEDICARE SUPPLEMENT Advance Directives * Full Code (Latest Code [...] Code Status Discussion: Not Discussed Care Teams Windows Server Administrator Relationship Specialty Start Date End Date Elbert Sloan MD [address] [place] [address] PCP - General Family Practice 01/26/24 Maria Esther Godwin MBBS [address] [facility] [address] [place] [address] Consulting Physician Endocrinology 06/02/24
[2024-11-03 09:47] VITALS: BP 116/71; PULSE 79; RESP 18; TEMP 36.3; O2SAT 96; BMI 32.5
--- NOTE | 2024-11-03 10:32 | ED.GENADULT ---
HPI - General Adult General Chief complaint: Extremity Pain/Injury, Lower Stated complaint: foot swelling Time Seen by Provider: 11/03/24 10:07 Source: patient Mode of arrival: ambulatory Limitations: no limitations History of Present Illness HPI narrative: Patient is a 64-year-old male presenting today with right-sided calf pain. Patient states that approximately a week ago he had swelling of the right foot. He went to the orthopedic urgent care and they placed him in a boot. The swelling has since resolved with this morning he woke up with pain in his calf. He is concerned about a potential blood clot. He describes the pain as a sharp pain that comes and goes at the top of the calf. He denies shortness of breath or chest pain. He denies any personal or family history of blood clots in the past. He denies any recent travel or surgeries. Patient is also concerned because he has felt very nauseated since this all began. He thinks he has lost about 10 lb because he has been eating less. He denies vomiting or fevers. He states he does have a cough that is been going on for ?quite a while?. Cough is nonproductive. He denies any diarrhea or constipation. No difficulty with urination. No increased urination the middle of the night. No difficulty starting or stopping urine stream. No night sweats. Denies abdominal pain. He does not smoke and he states that he drinks minimally. Related Data Home Medications ?Medication ?Instructions ?Recorded ?Confirmed sildenafil (pulm.hypertension) 20 20 mg PO Q24H 05/15/22 10/24/24 mg tablet aspirin 325 mg tablet 325 mg PO QDAY 11/30/22 10/24/24 omeprazole 20 mg capsule,delayed 20 mg PO .Daily 12/10/22 10/24/24 release testosterone 1 pump topical QDAY 11/24/23 10/24/24 Previous Rx's ?Medication ?Instructions ?Recorded rosuvastatin 40 mg tablet 40 mg PO QDAY #90 tabs 11/01/24 Allergies Allergy/AdvReac Type Severity Reaction Status Date / Time morphine Allergy Unknown Verified 10/24/24 15:53 Review of Systems Status of ROS: Reports: 10 or more systems reviewed and unremarkable except as noted in History and below PFSH PFSH Surgical History S/P TURP ?Z90.79 - Acquired absence of other genital organ(s) (ICD-10) S/P total knee arthroplasty ?Z96.659 - Presence of unspecified artificial knee joint (ICD-10) History of Marie fundoplication (09/03/10) ?Z98.890 - Other specified postprocedural states (ICD-10) History of arthroscopy of knee (12/22/11) ?Z98.890 - Other specified postprocedural states (ICD-10) History of arthroscopic surgery of shoulder ?Z98.890 - Other specified postprocedural states (ICD-10) History of prior ablation treatment ?Z98.890 - Other specified postprocedural states (ICD-10) Status post catheter ablation of atrial fibrillation ?Z98.890 - Other specified postprocedural states (ICD-10) Social History Smoking Status: Never smoker Do you use any of these nicotine containing products: None Second hand tobacco smoke exposure: No How often do you have a drink containing alcohol: 2-4 times a month How many standard drinks containing alcohol do you have on a typical day: 1 or 2 AUDIT-C Alcohol total score: 2 Non-prescribed substance use: denies use service: No Exam Narrative: Exam Narrative: Well-nourished well-developed patient in no acute distress. Alert and oriented. Answers questions appropriately. Mood and affect are appropriate. Thoughts are goal oriented and rational. No tangential or magical thinking noted. Patient speaks in full sentences without needing to catch his breath. HEENT: Normocephalic atraumatic. Pupils are equally round reactive to light. Extraocular muscles are intact. Conjunctivae are moist without any icterus noted. Moist mucous membranes. Posterior pharynx is normal. Neck is soft. Cardiovascular: Heart is regular rate and rhythm S1 and S2 are present without any murmurs. Lungs: Clear to auscultation bilaterally no wheezes rhonchi or rales are appreciated. Patient takes deep breaths without any discomfort. Abdomen: Soft and nontender nondistended with normal bowel sounds. Protuberant. No guarding or rebound. No masses or organomegaly appreciated. Extremities: Bilateral lower extremities are without edema. Normal calf circumference bilaterally. Negative Homans sign. No palpable cords appreciated. No swelling of the extremities. Skin: Well perfused without any obvious rashes. Const: Vital Signs, click to edit/add: Vital Signs - 24 hr 11/03/24 09:47 Temperature 97.3 F L Pulse Rate [Pulse Oximeter] 79 Respiratory Rate 18 Blood Pressure [Ri ght Upper Arm] 116/71 Pulse Oximetry 96 Oxygen Delivery Me thod Room Air Course Course ED Course: As far as his calf pain proceeded with a lower extremity ultrasound. We also did a chest x-ray for his cough. This, read by me, did not show any acute pathology. For his nausea and weight loss we proceeded with some blood work: Blood work and UA were unremarkable. Ultrasound unremarkable. Vital Signs Vital signs: Initial Vital Signs Temperature 97.3 F L 11/03/24 09:47 Temperature Source Temporal Artery Scan 11/03/24 09:47 Pulse Rate 79 11/03/24 09:47 Respiratory Rate 18 11/03/24 09:47 Blood Pressure 116/71 11/03/24 09:47 Blood Pressure Mean 86 11/03/24 09:47 Blood Pressure Position Sitting 11/03/24 09:47 Pulse Oximetry 96 11/03/24 09:47 Oxygen Delivery Method Room Air 11/03/24 09:47 Vital Signs Temperature 97.3 F L 11/03/24 09:47 Pulse Rate 79 11/03/24 09:47 Respiratory Rate 18 11/03/24 09:47 Blood Pressure 116/71 11/03/24 09:47 Pulse Oximetry 96 11/03/24 09:47 Oxygen Delivery Method Room Air 11/03/24 09:47 Temperature 97.3 F L 11/03/24 09:47 Pulse Rate 79 11/03/24 09:47 Respiratory Rate 18 11/03/24 09:47 Blood Pressure 116/71 11/03/24 09:47 Pulse Oximetry 96 11/03/24 09:47 Oxygen Delivery Method Room Air 11/03/24 09:47 Medical Decision Making MDM Narrative Medical decision making narrative: 64-year-old male with several concerns today including nausea, weight loss, cough, leg pain. Workup today was unremarkable. Certainly there could be some underlying pathology that we did not see today and that is not acutely life-threatening. Recommend he follow-up with his primary care provider for further management. Lab Data Lab results reviewed: Yes I reviewed the patient's lab results Labs: Lab Results 11/03/24 11/03/24 11/03/24 Range/Units 10:20 10:24 10:50 WBC 8.91 (4.50-11.00) K/uL RBC 5.18 (4.30-5.90) m/uL Hgb 15.0 (13.5-17.5) gm/dL Hct 45.2 (37.0-53.0) % MCV 87 (80-100) fL MCH 29 (26-34) pg MCHC 33 (32-36) gm/dL RDW Coeff of Shannan 13.1 (11.5-15.5) % Plt Count 213 (140-440) K/uL Neut % (Auto) 79.6 H (42.0-72.0) % Lymph % (Auto) 10.2 L (20-44) % Hinds % (Auto) 7.7 (0.0-11.0) % Eos % (Auto) 1.9 (0.0-7.0) % Baso % (Auto) 0.4 (0.0-3.0) % Neut # (Auto) 7.10 H (1.7-7.0) K/uL Lymph # (Auto) 0.90 (0.90-2.90) K/uL Hinds # (Auto) 0.70 (0.00-0.90) K/UL Eos # (Auto) 0.17 (0.00-0.50) K/uL Baso # (Auto) 0.04 (0.00-0.30) K/uL Abs Immat Gran (auto) 0.02 (0.00-0.30) K/uL Imm/Tot Granulo (auto) 0.2 % Sodium 140 (135-149) mmol/L Potassium 4.2 (3.6-5.1) mmol/L Chloride 104 (96-114) mmol/L Carbon Dioxide 25 (20-32) mmol/L Anion Gap 11 (7-15) mEq/L BUN 27 (7-30) mg/dL Creatinine 0.7 (0.5-1.5) mg/dL Estimated Creat Clear 77.39 Estimated GFR 102 ml/min Glucose 101 (60-115) mg/dL Lactate 1.1 (0.5-1.9) mmol/L Calcium 9.0 (8.4-10.6) mg/dL Total Bilirubin 0.4 (0.1-1.5) mg/dL Direct Bilirubin 0.2 (0.0-0.5) mg/dL AST 18 (12-35) U/L ALT 26 (4-50) U/L Alkaline Phosphatase 50 (40-150) U/L Troponin I < 0.01 L (0.01-0.04) ng/mL C-Reactive Protein < 0.5 L (0.5-1.0) mg/dL Total Protein 6.3 (6.0-8.3) g/dL Albumin 4.0 (3.3-5.0) g/dL Lipase 64 (23-300) U/L TSH 1.500 (0.270-4.20) uIU/mL Urine Color Dark yellow (Yellow) Urine Appearance Clear (Clear) Urine pH 6.0 (5.0-8.5) Ur Specific [place] >= 1.030 (1.000-1.030) Urine Protein Trace A (Negative) Urine Glucose (UA) Negative (Negative) Urine Ketones Negative (Negative) Urine Blood Negative (Negative) Urine Nitrite Negative (Negative) Urine Bilirubin Negative (Negative) Urine Urobilinogen 0.2 (0.2-1.0) Ur Leukocyte Esterase Negative (Negative) Urine RBC 0-2 (0-2) Urine WBC 0-2 (0-5) Ur Squamous Epith Cells None (None-Few) Urine Bacteria None (None) SARS-CoV-2 (PCR) Negative SARS-CoV-2 (Negative) Influenza Type A (PCR) Negative PCR FLU A (Negative) Influenza Type B (PCR) Negative PCR FLU B (Negative) RSV (PCR) Negative PCR RSV (Negative) Imaging Data Venous US: Attestation: I have reviewed the pertinent imaging results. Radiologist's impression: Leg pain and swelling TECHNIQUE: Ultrasound venous duplex lower right extremity. Compression venous exam was performed using chacko-scale, color Doppler, and spectral Doppler imaging. COMPARISON: None. FINDINGS: Sonographic imaging demonstrates the right common femoral, deep femoral, superficial femoral, popliteal, posterior tibial and greater saphenous and the contralateral left common femoral veins to be fully compressible with normal color Doppler blood flow. IMPRESSION: Normal right lower extremity venous ultrasound, no sign of deep venous thrombosis. Discharge Plan Discharge Clinical Impression: Acute leg pain, Recent weight loss, Nausea, Cough Patient Disposition: Home, Self-Care Condition: Stable Additional Instructions: Your workup today did not show any lab abnormalities or evidence of blood clot. I do recommend that you follow-up with your primary care provider to discuss your symptoms and next steps in management. Prescriptions: No Action sildenafil (pulm.hypertension) 20 mg tablet 20 mg PO Q24H Patient Comments: TAKE 1 TO 5 TABLETS BY MOUTH NEEDED ABOUT 1 HOUR PRIOR TO SEX DO NOT EXCEED 5 TABLETS PER 24 HOURS aspirin 325 mg tablet 325 mg PO QDAY testosterone 20.25 mg/1.25 gram (1.62 %) gel in metered-dose pump 1 pump topical QDAY Rx Instructions: apply 1 pump amount over max area of ONE upper arm and shoulder omeprazole 20 mg capsule,delayed release(DR/EC) 20 mg PO .Daily rosuvastatin 40 mg tablet 40 mg PO QDAY Qty: 90 0RF Follow Up/Referrals: Elbert Sloan MD [Primary Care Provider] - Stand Alone Forms: [employer] Info Instructions
[2024-11-03 10:35] LABS: Lactate* 1.1 mmol/L (0.5-1.9)
[2024-11-03 10:37] LABS: Basophils Absolute Auto 0.04 K/uL (0.00-0.30); Basophils Percent Auto 0.4 % (0.0-3.0); Eosinophils Absolute Auto 0.17 K/uL (0.00-0.50); Eosinophils Percent Auto 1.9 % (0.0-7.0); Hematocrit 45.2 % (37.0-53.0); Immature Granulocytes Abs Auto 0.02 K/uL (0.00-0.30); Immature Granulocytes Pct Auto 0.2 %; Lymphocytes Percent Auto 10.2 % (20-44); Mean Corpuscular HGB Conc 33 gm/dL (32-36); Mean Corpuscular Hemoglobin 29 pg (26-34); Mean Corpuscular Volume 87 fL (80-100); Monocytes Percent Auto 7.7 % (0.0-11.0); Neutrophils Percent Auto 79.6 % (42.0-72.0); Platelet Count* 213 K/uL (140-440); RDW Coefficient of Variation % 13.1 % (11.5-15.5); Red Blood Count 5.18 m/uL (4.30-5.90); White Blood Count* 8.91 K/uL (4.50-11.00)
[2024-11-03 10:41] LABS: Slide Review Reflex No
--- OUTSIDE RECORDS SUMMARY | 2024-11-03 10:55 | XMS_ITS | Clinical Summary ---
Author Organization [place] Address [address] [place] [address]. [place] [address] Care Team Providers Care Collision Repairer Name Role Phone No Ref-Primary, Physician Primary [...] on file Legal Sex Male 3:44 AM LAP GRINDER Gender Identity Not on file Sexual Orientation Not on file Last Filed Vital Signs Vital Sign Reading Time Taken Comments Blood Pressure 118/72 10/08/2022 1:56 PM LAP GRINDER Pulse - - Temperature - - Respiratory Rate - - Oxygen Saturation - - Inhaled Oxygen Concentration - - Weight 99.8 kg (220 lb) 10/08/2022 1:56 PM LAP GRINDER Height 180.3 cm (5' 11) 10/08/2022 1:56 PM LAP GRINDER Body Mass Index 30.68 10/08/2022 1:56 PM LAP GRINDER Plan of Treatment Health Maintenance Due Date [...] patient's age to complete this topic Insurance [facility] INDIVIDUAL FAMILY PLANS Care Teams Collision Repairer Relationship Specialty Start Date End Date No Ref-Primary, Physician PCP - General 10/08/22
--- OUTSIDE RECORDS SUMMARY | 2024-11-03 10:55 | XMS_ITS | Clinical Summary ---
Author Organization [facility] Address [place], [place] [address] Care Team Providers Care Educational Fundraising Director Name Role Phone Elbert Sloan MD Primary Care Provider [phone] Maria Esther Godwin MBBS Unavailable [phone] Allergies Active Allergy Reactions Criticality Noted Date [...] on file Legal Sex Male 6:53 AM WINDOWS SUPPORT ENGINEER Gender Identity Not on file Sexual Orientation [...] [address] [place] [address] Health Maintenance Due Date Last Done Comments [...] - 199 mg/dL 04/13/2024 4:42 PM CDT [facility] Comment: Cholesterol, Total Reference Ranges Desirable <200 mg/dL Borderline 200-239 mg/dL High >=240 mg/dL TRIGLYCERIDES 161(H) <150 mg/dL 04/13/2024 4:42 PM CDT [facility] HDL CHOLESTEROL 47 >40 mg/dL 4:42 PM CDT [facility] NON-HDL CHOLESTEROL 101 <145 mg/dl 04/13/2024 4:42 PM CDT [facility] CHOL/HDL RATIO 3.15 <4.50 04/13/2024 4:42 PM CDT [facility] LDL CHOLESTEROL 69 <=130 mg/dL 04/13/2024 4:42 PM CDT [facility] VLDL CHOLESTEROL 32(H) <=30 mg/dL 04/13/2024 4:42 PM CDT [facility] PROVIDER ORDERED STATUS RANDOM 04/13/2024 4:42 PM CDT [facility] Blood BLOOD SPECIMEN / Unknown Venipuncture / Unknown 04/13/2024 9:44 AM CDT 04/13/2024 9:44 AM CDT Gem Cho NP CHEMISTRY Final R esult [facility] [address] [place] [address], from Last 3 Months or Most Recently [...] Code Status Discussion: Not Discussed Care Teams Educational Fundraising Director Relationship Specialty Start Date End Date Elbert Sloan MD [address] [place] [address] PCP - General Family Practice 01/26/24 Maria Esther Godwin MBBS [address] [facility] [address] [place] [address] Consulting Physician Endocrinology 06/02/24
[2024-11-03 10:59] LABS: Appearance Urine Clear (Clear); Bilirubin Urine Negative (Negative); Blood Urine Negative (Negative); Color Urine Dark yellow (Yellow); Glucose Urine Negative (Negative); Ketones Urine Negative (Negative); Leukocyte Esterase Urine Negative (Negative); Nitrite Urine Negative (Negative); Protein Urine Trace (Negative); Specific Gravity Urine >= 1.030 (1.000-1.030); Urobilinogen Urine 0.2 (0.2-1.0)
[2024-11-03 11:00] LABS: Chloride* 104 mmol/L (96-114)
[2024-11-03 11:01] LABS: Sodium* 140 mmol/L (135-149)
[2024-11-03 11:02] LABS: Potassium* 4.2 mmol/L (3.6-5.1)
[2024-11-03 11:04] LABS: Anion Gap 11 mEq/L (7-15); Aspartate Amino Transferase* 18 U/L (12-35); Bilirubin Direct* 0.2 mg/dL (0.0-0.5); Bilirubin Total* 0.4 mg/dL (0.1-1.5); Carbon Dioxide* 25 mmol/L (20-32); Creatinine* 0.7 mg/dL (0.5-1.5); Est. Creatinine Clearance* 77.39; Estimated Glomerular Filt Rate 102 ml/min; Total Protein* 6.3 g/dL (6.0-8.3)
[2024-11-03 11:05] LABS: Alanine Aminotransferase* 26 U/L (4-50); Alkaline Phosphatase* 50 U/L (40-150); Blood Urea Nitrogen* 27 mg/dL (7-30); Glucose* 101 mg/dL (60-115); Lipase* 64 U/L (23-300)
[2024-11-03 11:06] LABS: RBC Urine 0-2 (0-2); WBC Urine 0-2 (0-5)
[2024-11-03 11:14] LABS: C Reactive Protein* < 0.5 mg/dL (0.5-1.0)
[2024-11-03 11:14] LABS: PCR FLU A Negative PCR FLU A (Negative); PCR FLU B Negative PCR FLU B (Negative); PCR RSV Negative PCR RSV (Negative); SARS PCR* Negative SARS-CoV-2 (Negative)
[2024-11-03 11:22] LABS: Troponin I* < 0.01 ng/mL (0.01-0.04)
== END 2024-11-03 13:17 | disposition home or self-care (01) ==
PROVIDERS: Emergency Provider Family Medicine; PCP Family Medicine
DX: M79.604 Pain in right leg (principal); R63.4 Abnormal weight loss; R11.0 Nausea; R05.9 Cough, unspecified
CPT/HCPCS: 36415; 71046; 80048; 80076; 81001; 83605; 83690; 84443; 84484; 85025; 86140; 87631; 93971; 99284; 99285

== ENCOUNTER 2024-12-10 10:23 | Emergency (ER) | payer MEDICARE, OTHER, SELFPAY ==
--- OUTSIDE RECORDS SUMMARY | 2024-12-10 10:25 | XMS_ITS | Clinical Summary ---
Author Organization [facility] Address [address] [place] [address] Care Team Providers Care Briquette Machine Operator Name Role Phone Elbert Sloan MD Primary Care Provider [phone] Maria Esther GodwinBS Unavailable [phone] Allergies Active Allergy Reactions Criticality Noted Date [...] 008 Overview (12/05/2007): S/P DCCV 10/17/07 Immunizations Immunization Administration Dates Next Due Influenza A (H1N1), [...] on file Legal Sex Male 6:53 AM DIGITAL SOLUTIONS ARCHITECT Gender Identity Not on file Sexual Orientation [...] 05/01/2025 12:00 PM CDT Office Visit [facility] [address] [place] [address] Maria Esther Godwin MBBS [address] [place] [address] Health Maintenance Due Date Last Done Comments [...] ( - season) 2024 01/03/2021, 12/06/2020 Influenza Vaccine (#1) 2024 , 10/03/2019, 06/06/2019, Additional history exists BMI [...] - 199 mg/dL 04/13/2024 4:42 PM CDT [facility] Comment: Cholesterol, Total Reference Ranges Desirable <200 mg/dL Borderline 200-239 mg/dL High >=240 mg/dL TRIGLYCERIDES 161(H) <150 mg/dL 04/13/2024 4:42 PM CDT [facility] HDL CHOLESTEROL 47 >40 mg/dL 4:42 PM CDT [facility] NON-HDL CHOLESTEROL 101 <145 mg/dl 04/13/2024 4:42 PM CDT [facility] CHOL/HDL RATIO 3.15 <4.50 04/13/2024 4:42 PM CDT [facility] LDL CHOLESTEROL 69 <=130 mg/dL 04/13/2024 4:42 PM CDT [facility] VLDL CHOLESTEROL 32(H) <=30 mg/dL 04/13/2024 4:42 PM CDT [facility] PROVIDER ORDERED STATUS RANDOM 04/13/2024 4:42 PM CDT [facility] Blood BLOOD SPECIMEN / Unknown Venipuncture / Unknown 04/13/2024 9:44 AM CDT 04/13/2024 9:44 AM CDT Gem Cho NP CHEMISTRY Final R esult [facility] [address] [address], from Last 3 Months or Most Recently [...] Code Status Discussion: Not Discussed Care Teams Briquette Machine Operator Relationship Specialty Start Date End Date Elbert Sloan MD [address] [place] [address] PCP - General Family Practice 01/26/24 Maria Esther Godwin MBBS [address] [facility] [address] [place] [address] Consulting Physician Endocrinology 06/02/24
--- OUTSIDE RECORDS SUMMARY | 2024-12-10 10:25 | XMS_ITS | Data Portability ---
[facility] Organization [facility] Address [address] [place] [address] Care Team Providers Care Ore Washer Name Role Phone ALLEN SUH Primary Care Provider [phone] Assessment No assessment recorded. Plan of Treatment Reminders Order Date Submit Date Provider Last Modified By Organization Details Last Modified Time Details Appointments None recorded. Lab PSA, serum or plasma 2023 024 [facility], [address], [place], [address], 4 15:58:04 urinalysis, dipstick 2022 023 ssamb [facility], [address], [place], [address], 3 12:39:06 urinalysis, dipstick 2022 023 ssamb [facility], [address], [place], [address], 3 15:38:49 urinalysis, dipstick 2021 022 tsouthard 1 Not available 2 14:43:00 PSA, serum or plasma 2021 022 tsouthard 1 Not available 2 14:43:00 PSA, serum or plasma 2020 021 LIZET Not available 08:57:40 Referral None recorded. Procedures None recorded. Surgeries None recorded. Imaging None recorded. Medication Orders Gemtesa 75 mg tablet 2022 023 [facility], [address] [facility], [place], [address], 3 12:59:36 sildenafil (pulmonary hypertensio n) 20 mg tablet 2022 023 [facility], [address] [facility], [place], [address], 3 16:49:26 sildenafil (pulmonary hypertensio n) 20 mg tablet 2021 022 [facility], [address] [facility], [place], [address], 14:43:07 Gemtesa 75 mg tablet 2021 022 [facility], [address] [facility], [place], [address], 3 15:36:33 Patient TargetsNo targets recorded. Patient InstructionsNo instructions recorded. Reason for Referral None Reported. Results Created Date Observation Date Name Description Value Unit Range Abnormal Flag Note LastModifiedBy Organization Detail LastModifiedTime 06/10/2006/10/2021 PSA, serum or plasm a PSA, Total 1.3 ng/mL Not Available [facility] [address], [place], [address], 06/09/2021 16:17:01 12/03/19 22 12/02/2021 PSA, serum or plasm a PSA, Total 1.3ng/ mL Not Available [facility] [address], [place], [address], 12/02/2021 14:42:25 12/03/19 22 12/02/2021 urina lysis , dipst ick Color-Status Yellow Not Available [facility] [address], [place], [address], 12/02/2021 14:41:29 12/03/19 22 12/02/2021 urina lysis , dipst ick Clarity-Stat us Clear Not Available [facility] [address], [place], [address], 12/02/2021 14:41:29 12/03/19 22 12/02/2021 urina lysis , dipst ick Glucose-Stat us Negati ve Not Available [facility] [address], [place], [address], 12/02/2021 14:41:29 12/03/19 22 12/02/2021 urina lysis , dipst ick Bilirubin-St atus Negati ve Not Available [facility] [address], [place], [address], 12/02/2021 14:41:29 12/03/19 22 12/02/2021 urina lysis , dipst ick Ketones-Stat us Negati ve Not Available [facility] [address], [place], [address], 12/02/2021 14:41:29 12/03/19 22 12/02/2021 urina lysis , dipst ick Sp [place]-Stat us 1.025 Not Available [facility] [address], [place], [address], 12/02/2021 14:41:29 12/03/19 22 12/02/2021 urina lysis , dipst ick pH-Status 5.5 Not Available [facility] [address], [place], [address], 12/02/2021 14:41:29 12/03/19 22 12/02/2021 urina lysis , dipst ick Urobilinogen -Status 0.2 Not Available [facility] [address], [place], [address], 12/02/2021 14:41:29 12/03/19 22 12/02/2021 urina lysis , dipst ick Nitrates-Sta tus negati ve Not Available [facility] [address], [place], [address], 12/02/2021 14:41:29 12/03/19 22 12/02/2021 urina lysis , dipst ick Blood-Status Trace Not Available [facility] [address], [place], [address], 12/02/2021 14:41:29 12/03/19 22 12/02/2021 urina lysis , dipst ick Leuko-Status Negati ve Not Available [facility] [address], [place], [address], 12/02/2021 14:41:29 12/03/19 22 12/02/2021 urina lysis , dipst ick Specimen Type Voided Not Available [facility] [address], [place], [address], 12/02/2021 14:41:29 10/29/19 23 10/29/2022 urina lysis , dipst ick Color-Status Yellow Not Available [facility] [address], [place], [address], 10/29/2022 15:38:28 10/29/19 23 10/29/2022 urina lysis , dipst ick Clarity-Stat us Clear Not Available [facility] [address], [place], [address], 10/29/2022 15:38:28 10/29/19 23 10/29/2022 urina lysis , dipst ick pH-Status 6.5 Not Available [facility] [address], [place], [address], 10/29/2022 15:38:28 12/08/19 23 12/07/2022 urina lysis , dipst ick Color-Status Yellow Not Available [facility] [address], [place], [address], 12/07/2022 12:38:45 12/08/19 23 12/07/2022 urina lysis , dipst ick Clarity-Stat us Clear Not Available [facility] [address], [place], [address], 12/07/2022 12:38:45 12/08/19 23 12/07/2022 urina lysis , dipst ick pH-Status 6.0 Not Available [facility] [address], [place], [address], 12/07/2022 12:38:45 02/21/20 24 02/21/2024 PSA, serum or plasm a PSA 1.8 ng/mL 0-4.0 NG/mL Not Available [facility] [address], [place], [address], 02/21/2024 15:30:48 06/17/20 21 06/09/2021 bladd er [...] Time Prostate specific antigen above reference range 416212781 Completed 202006/09/2021 Daphney patrick [place] [facility] 16:16:23 Benign prostatic hyperplas ia with outflow obstructi on 243295938 Active 2020 Daphney patrick [facility] 1 16:16:33 Obstructi ve sleep apnea of adult 008041595228 3 Active 2011 Sánchez patrick [facility] 4 15:29:43 Degenerat ion of lumbar intervert ebral disc 43130882 Active 2017 Sánchez patrick [facility] 4 15:29:43 Arthropat hy of lumbar facet joint 348235901 Active 2017 Mendez Henri patrick [facility] 4 15:29:43 Atrial fibrillat ion 51067868 Active 2007 Mendez Henri patrick [facility] 4 15:29:43 Problem Notes None recorded. Procedures Surgical History Date Name Laterality Status Provider Name and Address Organization Details Recorded Time 02/21/20 24 DOCTOR OF NATUROPATHIC MEDICINE/blood draw completed Sánchez Álvarez [facility] 02/21/2024 15:30:42 12/08/19 23 Bladder Scan completed Ricco White [facility] 12/07/2022 12:38:40 10/29/19 23 Bladder Scan completed Rhina Klien PA-C [address], [place], [address], [facility] 10/29/2022 15:51:07 12/03/19 22 Bladder Scan completed Liz Boyd [facility] 12/02/2021 14:43:15 12/03/19 22 Blood Draw/DOCTOR OF NATUROPATHIC MEDICINE/PSA RESULTS completed Liz Boyd [facility] 12/02/2021 14:50:43 06/09/20 21 Bladder Scan completed Daphney Pak [facility] 06/09/2021 16:16:56 03/31/20 21 Bladder Scan completed Jessica Oconnor [facility] 03/31/2021 16:40:16 01/29/20 21 Bladder Scan completed Mt Marroquin MD [address], [place], [address], [facility] 01/28/2021 15:53:39 12/25/19 21 TRANSURETHRAL RESECTION OF PROSTATE (SURG) completed Magdalena Ray [facility] 12/25/2020 08:36:37 12/25/19 21 TRANSURETHRAL RESECTION OF PROSTATE (SURG) completed Eir Currie [facility] 12/26/2020 09:51:51 12/04/19 21 Cystoscopy- male completed Mt Marroquin MD [address], [place], [address], [facility] 12/03/2020 10:19:56 11/30/19 21 Bladder Scan completed Liz Boyd [facility] 11/29/2020 15:05:15 06/06/20 20 Cystoscopy- male completed Magan Monteoj MD [address], [place], [address], [facility] 06/06/2020 17:43:19 02/15/20 19 Colonoscopy completed Francisca Strong [facility] 06/24/2021 15:03:44 05/09/20 07 Colonoscopy completed Magdalena Ray [facility] 2021 09:27:33 Imaging Results Imaging Date [...] Updated DateTime 10/29/2022 180.34 cm 30.7 kg/m2 50411.32 g Ricco White [facility] 10/29/2022 15:34:11 Date Recorded Body height Body mass index (BMI) Body weight Provider Name and Address Organization Details Last Updated DateTime 12/07/2022 180.34 cm 30.7 kg/m2 72876.32 g Ricco White [facility] 12/07/2022 12:37:46 Date Recorded Body height Body mass index (BMI) Body weight Provider Name and Address Organization Details Last Updated DateTime 02/21/2024 180.34 cm 30.7 kg/m2 11882.32 g Sánchez Álvarez [facility] 02/21/2024 15:29:30 Date Recorded Body height Body mass index (BMI) Body weight Provider Name and Address Organization Details Last Updated DateTime 06/09/2021 180.34 cm 30.7 kg/m2 94669.32 g Daphney Pak [facility] 06/09/2021 16:15:14 Date Recorded Body height Body mass index (BMI) Body weight Provider Name and Address Organization Details Last Updated DateTime 12/02/2021 180.34 cm 30.7 kg/m2 92458.32 g Mt Marroquin MD [address], [place], [address], [facility] 12/02/2021 14:36:40 Social History Question Answer Notes LastModified by Organizat ion Details LastModified Time Tobacco Smoking Status Never Smoker Michael patrick [facility] 03/28/2020 15:50:18 What Is Your Level Of Alcohol Consumption? Occasional Information not available 02/21/2024 What Is Your Level Of Caffeine Consumption? Occasional Information not available 02/21/2024 What Is Your Occupation? [employer] [email or web address] Information [...] brothe rs, uncles and male cousin s [email or web address] Not available 03/28/2020 15:49:51 Father Family history of Hypertension bothe parent had it [email or web address] Not available 03/28/2020 15:49:15 Medical History Condition Response Sexually Transmitted Infection N Diabetes N Bleeding Disorder N High Blood Pressure N Kidney Stones N Cancer N Depression N Lung Disease N High Cholesterol Y GERD/Acid Reflux Y Heart Disease Y Immunizations Vaccine Type Date Status Note Provider Nam e and Address Organization Details Recorded Time zoster recombinant 2 completed Tatiana Saeid null, [facility] 09/09/2023 14:09:18 zoster recombinant 2 completed Tatiana Merissaka null, [facility] 09/09/2023 14:09:18 Influenza, MDCK, quadrivalent, PF 6 [facility] 14:49:18 COVID-19, mRNA, LNP-S, PF, 100 mcg/0.5mL dose or 50 mcg/0.25mL dose 1 completed [facility]/2023 14:49:18 COVID-19, mRNA, LNP-S, PF, 100 mcg/0.5mL dose or 50 mcg/0.25mL dose 1 completed [facility]23 14:49:18 Tdap 2 completed [facility]23 14:49:18 zoster live 3 completed [facility]23 14:49:18 Influenza, split virus, trivalent, preservative 8 completed [facility]amp [facility]/2023 14:49:19 Influenza, split virus, trivalent, preservative 7 completed Wendy Phelps null, [facility] 05/21/2023 14:49:19 Influenza, split virus, trivalent, PF 2 completed Wendy Phelps null, [facility] 05/21/2023 14:49:19 Influenza, split virus, trivalent, PF 3 completed [facility] 14:49:19 Influenza, split virus, trivalent, PF 9 completed [facility]23 14:49:19 Influenza, split virus, trivalent, PF 1 completed Wendy Phelps null, [facility] 05/21/2023 14:49:19 Influenza, split virus, trivalent, PF 0 completed Wendy Phelps null, [facility] 05/21/2023 14:49:19 Influenza, split virus, trivalent, PF 4 completed Wendy Phelps null, [facility] 05/21/2023 14:49:19 Novel [id number] 9 completed Wendy Phelps null, [facility] 05/21/2023 14:49:19 Influenza, split virus, quadrivalent, PF 9 completed Wendy Phelps null, [facility] 05/21/2023 14:49:19 Influenza, split virus, quadrivalent, PF 0 completed Wendy Phelps null, [facility] 05/21/2023 14:49:19 Influenza, split virus, quadrivalent, PF 7 completed Wendy Phelps null, [facility] 05/21/2023 14:49:19 Influenza, split virus, quadrivalent, PF 0 completed Wendy Phelps null, [facility] 05/21/2023 14:49:19 Influenza, split virus, quadrivalent, PF 9 completed Wendy Phelps null, [facility] 05/21/2023 14:49:19 Influenza, split virus, quadrivalent, PF 5 completed Wendy Phelps null, [facility] 05/21/2023 14:49:19 Past Encounters Encounter ID Performer Location Encounter Start Date Encounter Closed Date Diagnosis/Indication Diagnosis SNOMED-CT Code Diagnosis ICD10 Code Diagnosis Note [id number] MD HEIDI [facility] [address], [place] [address] 03/28/2020 15:31:23 03/29/2020 12:04:24 Overactive urinary bladder 682458894 N32.81 Will try Myrbetriq. Discussed common side effects RTC 2-3 mo with PSA, PVR, AUA SS Lower urin malaika tract symptoms due to benign prostatic hypertrophy 6873364514 9101 N40.1 continue tamsulosin [id number] Magan Montejo MD [facility] [address] [place] [address] 06/06/2020 15:33:07 06/07/2020 06:02:27 Lower urinary tract symptoms due to benign prostatic hypertrophy 2156305605 9101 N40.1 - We discussed his diagnosis [...] and scheduling info; continue tamsulosin for now. [id number] Magan Montejo MD _[facility] [address] [place] [address] 06/06/2020 15:33:07 06/07/2020 08:54:22 [id number] Guido Sharp [facility] [address] [place] [address] 11/29/2020 11:25:54 12/02/2020 09:23:00 Dysuria 28021842 R30.9 [id number] Mt Marroquin MD [facility] [address] [place] [address] 12/03/2020 08:54:19 12/04/2020 11:10:38 Increased frequency of urination 199652028 R35.0 Benign pro static hyperplasia with outflow obstruction 787118897 N40.1 The patient has obstructiv e prostatism [...] the prostate. This will be performed at [facility]. The procedure, risks, possible complicati ons and postoperat ana maria course were fully reviewed. He is in agreement and we will schedule this in the near future [id number] MD Gagan Khalil. [place] [address] 01/28/2021 15:31:38 01/29/2021 10:32:41 Lower urinary tract symptoms due to benign prostatic hypertrophy 9969881215 9101 N40.1 Post saline TURP with good results. Reassured patient that his symptoms should continue to improve. If he has persistent discomfort he is going to add ibuprofen 200 mg 1-2 times daily. At advised to increase his fluids significan tly and he should not take this any longer than 4 to 6 weeks. Follow-up 2 months Increased frequency of urination 560810850 R35.0 [id number] MD Gagan Khalil. [address] [place] [address] 03/31/2021 16:11:30 04/02/2021 09:34:47 Benign prostatic hyperplasia 346425787 N40.1 Urgent reuben luis to urinate 08680798 R39.15 Patient has urinary urgency. It is [...] serum PSA AUA score and postvoid residual [id number] MD Gagan Khalil. [place] [address] 06/09/2021 16:01:41 06/10/2021 13:42:00 Prostate specific antigen above reference range 475580357 R97.20 Benign pro static hyperplasia with outflow obstruction 639627651 N40.1 Status post successful saline TURP for a large ball-valve intravesic al middle lobe. Postop failed PVP laser at [facility]. Patient satisfied. PSA low and no cancer on pathology. Advised follow-up PSA, AUA score, PVR and rectal exam 1 year [id number] Mt Marroquin MD [facility] [address] [place] [address] 12/02/2021 14:25:46 12/03/2021 11:43:52 Benign prostatic hyperplasia with outflow obstruction 767529275 N40.1 S/P TURP with good FOS, emptys. No pain. Erectile dysfunction 860 520843 F52.21 refill sildenafil Urge incon tinence of urine 89311403 N39.41 The patient is going to continue physical therapy and if his urge and urge incontinen ce improves he will continue to observe. However if this persists he will start gemtesa 75 mg daily. Discussed potential side effects were which are limited [id number] Rhina Kline PA-C [facility] [address] [place] [address] 10/29/2022 15:24:16 11/02/2022 10:19:45 Benign prostatic hyperplasia with outflow obstruction 008809723 N40.1 S/P TURP with good FOS, empties. No pain. Erectile dysfunction 860 384781 F52.21 Doing well on sildenafil . - refill provided today for sildenafil Urge incon tinence of urine 97074350 N39.41 Having worsening urgency and urge incontinen ce. Did not try Gemtesa that Dr. Marroquin prescribed November 2021. Discussed trial of Gemtesa. Reviewed possible side effects, which are limited. - start Gemtesa 75 mg once daily- 1 month sample of Gemtesa provided today in clinic- f/u with Dr. Marroquin in 4-6 weeks to assess symptoms, consider alternate medication if not effective [id number] [facility] [address] [place] [address] 12/07/2022 12:25:35 12/10/2022 14:26:41 Benign prostatic hyperplasia with outflow obstruction 896764449 N40.1 S/P TURP with good FOS, emptys. No pain. Urgent reuben luis to urinate 79974025 R39.15 Patient has urinary urgency. It is greatly improved after the resection but is not to the baseline that he prefers. The patient is going to continue to use Gemtesa 75 mg daily. I do not believe this has any effect on the pain and lack of function in his knees. Follow-up 1 year PSA rectal exam. [id number] Mt Marroquin MD [facility] [address] [place] [address] 02/21/2024 15:18:47 02/22/2024 10:20:07 Benign prostatic hyperplasia with outflow obstruction 375328643 N40.1 S/P TURP with good FOS, emptys. No pain. Follow-up as needed Family his tory of malignant neoplasm of prostate 639585170 Z80.42 Yearly serum PSA plus or minus [facility] Health Concerns Section Related Observation LastModified by Organization Detai ls LastModified Time None Recorded Concern Status LastModified by Organization Details LastModified Time None Recorded Advance Directives Directive None Recorded Payers Encounter Date Sequence Insurance Name Policy Number Policy Guy Covered Member ID Guy Member ID Guarantor Name 06/09/2021 2 [employer] - INDIVIDUAL AND FAMILY (HMO) [id number] 1 Wojciech Ramirez [id number] Wojciech Ramirez 12/02/2021 2 [employer] - INDIVIDUAL AND FAMILY (O) [id number] 1 Wojciech Ramirez [id number] Wojciech Ramirez 10/29/2022 2 [employer] - INDIVIDUAL AND FAMILY (O) [id number] Wojciech Ramirez [id number] Wojciech Ramirez 12/07/2022 2 [employer] - INDIVIDUAL AND FAMILY (O) [id number] 1 Wojciech Ramirez [id number] Wojciech Ramirez 02/21/2024 1 [place] [employer] Wojciech Ramirez Jr [id number] Wojciech Ramirez 02/21/2024 2 [employer] - INDIVIDUAL AND FAMILY (O) [id number] 1 Wojciech Ramirez [id number] Wojciech Ramirez Notes Date Note Type Note Provider Name and Address Organization Details Recorded Time 06/09/2021 text/html 60-year-old male who is status post saline transurethral resection for benign disease December 24, 2020. Patient had previous greenlight laser at the [facility] with Dr. Fleming. Presented to our office with severe penile discomfort, urinary urgency, frequency and very slow stream. Patient symptoms have markedly improved. Pathology was benign. Focal chronic inflammation was noted. Patient's postvoid residual today is 0. Serum PSA 1.3 Mt Marroquin MD [address], [place], [address], [facility] 06/09/2021 18:16:55 12/02/2021 text/html 61-year-old male with history of prior greenlight laser at the [facility] with continued obstruction secondary to a ball-valve middle lobe prostate. Status post saline bipolar resection by me. Pain has completely resolved and good force of stream. Continues to have urge and occasional urge incontinence. Has improved after initiating physical therapy for low back issues. PSA remains 1.3. Postvoid 0. Urinalysis trace small blood Mt Marroquin MD [address], [place], [address], [facility] 12/02/2021 15:37:13 10/29/2022 text/html 61-year-old male with history of prior greenlight laser at the [facility] with continued obstruction secondary to a [...] negativePVR today 23cc Rhina Kline PA-C [address], [place], [address], [facility] 10/29/2022 16:50:45 12/07/2022 text/html 61-year-old male with history of prior green light laser at the [facility] with continued obstruction secondary to a [...] total knee arthroplasty Mt Marroquin MD [address], [place], [address], [facility] 12/07/2022 14:06:45 02/21/2024 text/html 63-year-old gentleman well-known to me. History of BPH and associated obstructive and irritative voiding symptoms. Also family history of prostate cancer. Patient underwent greenlight laser in 2019 at the [facility] which failed to relieve his obstructive [...] a patient of Dr. Denton Marroquin MD [address] [place] [address],[address], [place], [address], [facility] 02/21/2024 17:23:40
--- OUTSIDE RECORDS SUMMARY | 2024-12-10 10:26 | XMS_ITS | Clinical Summary ---
Author Organization [facility] Address [address] [place] [address]. [place] [address] Care Team Providers Care Dramatic Art Teacher Name Role Phone No Ref-Primary, Physician Primary [...] on file Legal Sex Male 3:44 AM [employer] Gender Identity Not on file Sexual Orientation Not on file Last Filed Vital Signs Vital Sign Reading Time Taken Comments Blood Pressure 118/72 10/08/2022 1:56 PM GE[employer] SPLINE GRINDER Pulse - - Temperature - - Respiratory Rate - - Oxygen Saturation - - Inhaled Oxygen Concentration - - Weight 99.8 kg (220 lb) 10/08/2022 1:56 PM GEAR [employer] SPLINE GRINDER Height 180.3 cm (5' 11) 10/08/2022 1:56 PM [employer] SPLINE GRINDER Body Mass Index 30.68 10/08/2022 1:56 PM GEAR AND SPLINE GRINDER Plan of Treatment Health Maintenance Due Date Last Done Comments ADVANCE CARE PLANNING 1960 ANNUAL REVIEW OF HM ORDERS 1958 CT COLONOGRAPHY 1958 DIABETES SCREENING 1958 FIT 1958 FLEX SIG 1958 LIPID 1958 sDNA (Cologuard) 1958 COLONOSCOPY 1968 COLORECTAL CANCER SCREENING 1968 HEPATITIS C SCREENING 1976 Pneumococcal Vaccine: 50+ Years (1 of 1 - PCV) 2008 DTAP/TDAP/TD IMMUNIZATION (2 - Td or Tdap) 07/12/2022 07/12/2012 FALL RISK ASSESSMENT 2023 MEDICARE ANNUAL WELLNESS VISIT 2023 COVID-19 Vaccine ( - season) 2024 01/03/2021, 12/06/2020 INFLUENZA VACCINE [...] patient's age to complete this topic Insurance [facility] INDIVIDUAL FAMILY PLANS Care Teams Dramatic Art Teacher Relationship Specialty Start Date End Date No Ref-Primary, Physician PCP - General 10/08/22
[2024-12-10 10:27] VITALS: BP 155/109; PULSE 76; RESP 18; TEMP 36.6; O2SAT 97; BMI 32.1
[2024-12-10 10:28] VITALS: BP 155/109; PULSE 79; O2SAT 96
[2024-12-10 10:29] VITALS: PULSE 78; O2SAT 97
[2024-12-10 10:30] VITALS: PULSE 79; O2SAT 95
--- NOTE | 2024-12-10 10:34 | CRLHL7_ITS ---
For Patients: As a result of the Century Cures Act, medical imaging exams and procedure reports are released immediately into your electronic medical record. You may view this report before your referring provider. If you have questions, please contact your health care provider. INDICATION: Hit in ribs by cow. Lower chest/abdominal pain. TECHNIQUE: Axial intravenously infused CT cuts were performed from the thoracic inlet to below the ischial tuberosities with the infusion of 112 mL of Isovue-370. COMPARISON: CT abdomen pelvis 05/10/2019. FINDINGS: There is no of pulmonary contusion or pneumothorax. There is no mediastinal hematoma. No rib fractures are identified. There are no pleural or pericardial fluid collections. There are no pulmonary nodules, masses or infiltrates. There is mild dependent atelectasis bilaterally. There has been a cholecystectomy. There is no free intraperitoneal air or fluid. No evidence of solid organ injury. There is a 1 cm splenic cyst. There is a 3.7 cm exophytic cyst of the left kidney near the upper pole. The liver, pancreas, adrenals and right kidney appear normal. There are no enlarged retroperitoneal or mesenteric lymph nodes. There is a very subtle haziness of the central mesentery. There is no free intraperitoneal air or fluid. The colon and small bowel appear normal. The appendix is not inflamed. The urinary bladder, seminal vesicles and prostate gland appear normal. There is no iliac or inguinal lymphadenopathy. No fractures are identified. There is a moderate lumbar spondylosis. IMPRESSION: 1. No acute abnormality within the chest, abdomen or pelvis. 2. There is subtle mild haziness the central mesentery. This could represent idiopathic mesenteritis. Please note that all CT scans at this facility use dose modulation, iterative reconstruction, and/or weight-based dosing when appropriate to reduce radiation dose to as low as reasonably achievable. Dictated by Abelino Durbin MD @ 12/10/2024 11:28:35 AM (Electronically Signed)
--- NOTE | 2024-12-10 10:36 | ED_ITS ---
HPI - General Adult General Chief complaint: Rib Pain Stated complaint: kicked in ribs by cow Time Seen by Provider: 12/10/24 10:27 Source: patient Mode of arrival: ambulatory Limitations: no limitations History of Present Illness HPI narrative: Patient is a 64-year-old male presenting today with right upper quadrant/anterior lower chest pain after being pinned against a wall by a how. States that the cough how pinned him with the top of the cows head. He states that he has trouble taking deep breaths and he has acute sharp pain the lower part of the anterior chest upper abdomen that radiates into his back. This occurred approximately 2-1/2 hours ago. Pain is becoming more intense. Related Data Home Medications ?Medication ?Instructions ?Recorded ?Confirmed sildenafil (pulm.hypertension) 20 20 mg PO Q24H 05/15/22 11/17/24 mg tablet aspirin 325 mg tablet 325 mg PO QDAY 11/30/22 12/10/24 omeprazole 20 mg capsule,delayed 20 mg PO .Daily 12/10/22 12/10/24 release testosterone 1 pump topical QDAY 11/24/23 11/17/24 Previous Rx's ?Medication ?Instructions ?Recorded rosuvastatin 40 mg tablet 40 mg PO QDAY #90 tabs 11/01/24 Allergies Allergy/AdvReac Type Severity Reaction Status Date / Time morphine Allergy Unknown Verified 12/10/24 10:47 Review of Systems Status of ROS: Reports: 6 or more systems reviewed and unremarkable except as noted in History and below [facility] Medical History Hyperlipidemia (12/04/08) ?E78.5 - Hyperlipidemia, unspecified (ICD-10) ALVARO on CPAP ?G47.33 - Obstructive sleep apnea (adult) (pediatric) (ICD-10) ?Z99.89 - Dependence on other enabling machines and devices (ICD-10) Gastroesophageal reflux disease (12/04/08) ?K21.9 - Gastro-esophageal reflux disease without esophagitis (ICD-10) Barretts esophagus ?K22.70 - Bassett's esophagus without dysplasia (ICD-10) Male hypogonadism ?E29.1 - Testicular hypofunction (ICD-10) Adenomatous colon polyp ?D12.6 - Benign neoplasm of colon, unspecified (ICD-10) Constipation ?K59.00 - Constipation, unspecified (ICD-10) H/O atrial fibrillation without current medication ?Z86.79 - Personal history of other diseases of the circulatory system (ICD- 10) Seborrheic keratosis ?L82.1 - Other seborrheic keratosis (ICD-10) Surgical History S/P TURP ?Z90.79 - Acquired absence of other genital organ(s) (ICD-10) S/P total knee arthroplasty ?Z96.659 - Presence of unspecified artificial knee joint (ICD-10) History of Marie fundoplication (09/03/10) ?Z98.890 - Other specified postprocedural states (ICD-10) History of arthroscopy of knee (12/22/11) ?Z98.890 - Other specified postprocedural states (ICD-10) History of arthroscopic surgery of shoulder ?Z98.890 - Other specified postprocedural states (ICD-10) History of prior ablation treatment ?Z98.890 - Other specified postprocedural states (ICD-10) Status post catheter ablation of atrial fibrillation ?Z98.890 - Other specified postprocedural states (ICD-10) Social History Smoking Status: Never smoker Do you use any of these nicotine containing products: None Second hand tobacco smoke exposure: No How often do you have a drink containing alcohol: 2-4 times a month How many standard drinks containing alcohol do you have on a typical day: 1 or 2 AUDIT-C Alcohol total score: 2 Non-prescribed substance use: denies use service: No Exam Narrative: Exam Narrative: Well-nourished well-developed patient, clearly uncomfortable. Alert and oriented. Answers questions appropriately. Mood and affect are appropriate. Thoughts are goal oriented and rational. No tangential or magical thinking noted. Patient speaks in full sentences without needing to catch his breath. HEENT: Normocephalic atraumatic. Pupils are equally round reactive to light. Extraocular muscles are intact. Conjunctivae are moist without any icterus noted. Moist mucous membranes. Neck is soft. Cardiovascular: Heart is regular rate and rhythm S1 and S2 are present without any murmurs. Lungs: Clear to auscultation bilaterally no wheezes rhonchi or rales are appreciated. Deep inspiration is uncomfortable. Patient has tenderness over the lower anterior right ribs. He also has tenderness over the mid right back. Abdomen: Soft and nondistended with normal bowel sounds. Has right upper quadrant tenderness. Extremities: Bilateral lower extremities are without edema. Skin: Well perfused without any obvious rashes. No bruising noted. No broken skin. Const: Vital Signs, click to edit/add: Vital Signs - 24 hr 12/10/24 10:27 12/10/24 10:28 12/10/24 10:29 Temperature 98 F Pulse Rate 79 78 Pulse Rate [Right Pulse Oximeter] 76 Respiratory Rate 18 Blood Pressure 155/109 H Blood Pressure [Ri ght Upper Arm] 155/109 H Pulse Oximetry 97 96 97 Oxygen Delivery Me thod Room Air 12/10/24 10:30 12/10/24 11:04 12/10/24 11:05 Temperature Pulse Rate 79 72 76 Pulse Rate [Right Pulse Oximeter] Respiratory Rate Blood Pressure 151/105 H Blood Pressure [Ri ght Upper Arm] Pulse Oximetry 95 97 97 Oxygen Delivery Me thod Course Course ED Course: Given the amount of discomfort he was in, I did go ahead and messer scan the chest, abdomen and pelvis as the differential diagnoses includes lung contusion, rib fractures, lacerated liver. Vital Signs Vital signs: Initial Vital Signs Temperature 98 F 12/10/24 10:27 Temperature Source Temporal Artery Scan 12/10/24 10:27 Pulse Rate 76 12/10/24 10:27 Pulse Rhythm Regular 12/10/24 10:27 Respiratory Rate 18 12/10/24 10:27 Blood Pressure 155/109 H 12/10/24 10:27 Blood Pressure Mean 124 H 12/10/24 10:27 Blood Pressure Position Sitting 12/10/24 10:27 Pulse Oximetry 97 12/10/24 10:27 Oxygen Delivery Method Room Air 12/10/24 10:27 Vital Signs Temperature 98 F 12/10/24 10:27 Pulse Rate 76 12/10/24 10:27 Respiratory Rate 18 12/10/24 10:27 Blood Pressure 155/109 H 12/10/24 10:27 Pulse Oximetry 97 12/10/24 10:27 Oxygen Delivery Method Room Air 12/10/24 10:27 Temperature 98 F 12/10/24 10:27 Pulse Rate 76 12/10/24 11:05 Respiratory Rate 18 12/10/24 10:27 Blood Pressure 151/105 H 12/10/24 11:05 Pulse Oximetry 97 12/10/24 11:05 Oxygen Delivery Method Room Air 12/10/24 10:27 Medical Decision Making Imaging Data CT Chest/Ab/Pelvis: Attestation: I have reviewed the pertinent imaging results. Radiologist's impression: CT abdomen pelvis 05/10/2019. FINDINGS: There is no of pulmonary contusion or pneumothorax. There is no mediastinal hematoma. No rib fractures are identified. There are no pleural or pericardial fluid collections. There are no pulmonary nodules, masses or infiltrates. There is mild dependent atelectasis bilaterally. There has been a cholecystectomy. There is no free intraperitoneal air or fluid. No evidence of solid organ injury. There is a 1 cm splenic cyst. There is a 3.7 cm exophytic cyst of the left kidney near the upper pole. The liver, pancreas, adrenals and right kidney appear normal. There are no enlarged retroperitoneal or mesenteric lymph nodes. There is a very subtle haziness of the central mesentery. There is no free intraperitoneal air or fluid. The colon and small bowel appear normal. The appendix is not inflamed. The urinary bladder, seminal vesicles and prostate gland appear normal. There is no iliac or inguinal lymphadenopathy. No fractures are identified. There is a moderate lumbar spondylosis. IMPRESSION: 1. No acute abnormality within the chest, abdomen or pelvis. 2. There is subtle mild haziness the central mesentery. This could represent idiopathic mesenteritis. Discharge Plan Discharge Clinical Impression: Acute traumatic injury of chest wall Patient Disposition: Home, Self-Care Condition: Stable Additional Instructions: Thankfully, your scan did not show any evidence of traumatic injury today. You will likely have significant soreness over the next several days. Recommend heat or ice, whichever feels best to sore areas. Do not apply heat or ice directly to skin and do not use for more than 20 minutes at a time. Also recommend using Tylenol or ibuprofen as needed/as directed for discomfort. Of note, you do have a cyst on your left kidney, nothing to be concerned about but you should just be aware that it is there. Something to mention to your primary care provider next time you see them. Prescriptions: No Action sildenafil (pulm.hypertension) 20 mg tablet 20 mg PO Q24H Patient Comments: TAKE 1 TO 5 TABLETS BY MOUTH NEEDED ABOUT 1 HOUR PRIOR TO SEX DO NOT EXCEED 5 TABLETS PER 24 HOURS aspirin 325 mg tablet 325 mg PO QDAY testosterone 20.25 mg/1.25 gram (1.62 %) gel in metered-dose pump 1 pump topical QDAY Rx Instructions: apply 1 pump amount over max area of ONE upper arm and shoulder omeprazole 20 mg capsule,delayed release(DR/EC) 20 mg PO .Daily rosuvastatin 40 mg tablet 40 mg PO QDAY Qty: 90 0RF Follow Up/Referrals: Elbert Sloan MD [Primary Care Provider] - Stand Alone Forms: MineWhat Info Instructions
--- OUTSIDE RECORDS SUMMARY | 2024-12-10 10:59 | XMS_ITS | Clinical Summary ---
Author Organization [facility] Address [address] [place] [address]. [place] [address] Care Team Providers Care Ammonium Hydroxide Operator Name Role Phone No Ref-Primary, Physician [...] on file Legal Sex Male 3:[address] Gender Identity Not on file Sexual Orientation Not on file Last Filed Vital Signs Vital Sign Reading Time Taken Comments Blood Pressure 118/72 10/08/2022 1:[address]IVER Pulse - - Temperature - - Respiratory Rate - - Oxygen Saturation - - Inhaled Oxygen Concentration - - Weight 99.8 kg (220 lb) 10/08/2022 1:[address] Height 180.3 cm (5' 11) 10/08/2022 1:[address]IVER Body Mass Index 30.68 10/08/2022 1:[address]IVER Plan of Treatment Health Maintenance Due Date [...] patient's age to complete this topic Insurance [facility] INDIV[employer]UAL FAMILY PLANS Care Teams Ammonium Hydroxide Operator Relationship Specialty Start Date End Date No Ref-Primary, Physician PCP - General 10/08/22
--- OUTSIDE RECORDS SUMMARY | 2024-12-10 10:59 | XMS_ITS | Clinical Summary ---
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 Gender Identity Not on file Sexual Orientation [...] [address] [place] [id number] Health Maintenance Due Date Last Done Comments [...] - 199 mg/dL 04/13/2024 4:42 PM CDT [facility] Comment: Cholesterol, Total Reference Ranges Desirable <200 mg/dL Borderline 200-239 mg/dL High >=240 mg/dL TRIGLYCERIDES 161(H) <150 mg/dL 04/13/2024 4:42 PM CDT [facility] HDL CHOLESTEROL 47 >40 mg/dL 4:42 PM CDT [facility] NON-HDL CHOLESTEROL 101 <145 mg/dl 04/13/2024 4:42 PM CDT [facility] CHOL/HDL RATIO 3.15 <4.50 04/13/2024 4:42 PM CDT [facility] LDL CHOLESTEROL 69 <=130 mg/dL 04/13/2024 4:42 PM CDT [facility] VLDL CHOLESTEROL 32(H) <=30 mg/dL 04/13/2024 4:42 PM CDT [facility] PROVIDER ORDERED STATUS RANDOM 04/13/2024 4:42 PM CDT [facility] Blood BLOOD SPECIMEN / Unknown Venipuncture / Unknown 04/13/2024 9:44 AM CDT 04/13/2024 9:44 AM CDT Gem Cho NP CHEMISTRY Final R [facility]ult [facility] [address] [address], from Last 3 Months or Most Recently [...] Code Status Discussion: Not Discussed Care Teams Wheat Buyer Relationship Specialty Start Date End Date Elbret Sloan MD [address] [place] [address] PCP - General Family Practice 01/26/24 Maria Esther Godwin MBBS [address] [facility] [address] [place] [address] Consulting Physician Endocrinology 06/02/24
[2024-12-10 11:04] VITALS: PULSE 72; O2SAT 97
[2024-12-10 11:05] VITALS: BP 151/105; PULSE 76; O2SAT 97
== END 2024-12-10 11:50 | disposition home or self-care (01) ==
PROVIDERS: Emergency Provider Family Medicine; PCP Family Medicine
DX: S29.9XXA Unspecified injury of thorax, initial encounter (principal); W55.22XA Struck by cow, initial encounter
CPT/HCPCS: 71260; 74177; 99284; Q9967

== ENCOUNTER 2025-01-08 10:13 | Outpatient (CLI) | payer MEDICARE, SELFPAY | END 2025-01-08 10:14 | disposition home or self-care (01) | PROVIDERS: PCP Family Medicine; Visit Provider Family Medicine | DX: R11.0 Nausea (principal) | CPT/HCPCS: 80076; 83690; 86140 ==

== ENCOUNTER 2025-04-21 19:06 | Emergency (ER) | payer MEDICARE, SELFPAY ==
--- OUTSIDE RECORDS SUMMARY | 2025-04-21 19:08 | XMS_ITS | Clinical Summary ---
Author Organization [employer] [facility] Address [address] [place] [address] Care Team Providers Care Mold Yard Worker Name Role Phone Elbert Sloan MD Primary Care Provider [phone] Maria Esther Godwin Unavailable [phone] Allergies Active Allergy Reactions Criticality Noted Date Comments Morphine Nausea And Vomiting 08/23/2020 Medications acetaminophen (TYLENOL EXTRA STRGTH) 500 mg tablet Take 1,000 mg by mouth every 6 hours if needed. Max acetaminophen dose: 4000mg in 24 hrs. Active docusate (COLACE) 100 mg capsule Take 100 mg by mouth once daily. Active multivitamins-min erals-lutein (Multivitamin 50 Plus) tab tablet Take 1 Tablet by mouth once daily. Active omeprazole (PRILOSEC-OTC) 20 mg tablet Take 20 mg by mouth once daily. Active aspirin (ECOTRIN) 81 mg enteric coated tablet Take 1 Tablet (81 mg) by mouth once daily. 0 023 Active rosuvastatin (CRESTOR) 40 mg tabletIndications :Hyperlipidemia, unspecified hyperlipidemia type Take 1 Tablet (40 mg) by mouth once daily. 024 Active testosterone (ANDROGEL) 20.25 mg/1.25 gram (1.62 %) glpm transdermal gelIndications:Lo w testosterone in male APPLY 1 PUMP TO DRY, CLEAN, HAIRLESS SKIN (SHOULDERS AND UPPER ARMS ONLY) ONCE TOPICALLY IN THE MORNING 75 g 025 Active testosterone 20.25 mg/1.25 gram (1.62 %) glpm transdermal gelIndications:Lo w testosterone in male APPLY 1 PUMP TO DRY, CLEAN, HAIRLESS SKIN (SHOULDERS AND UPPER ARMS ONLY) ONCE TOPICALLY IN THE MORNING 75 g 025 2024 Discontinued Active Problems Problem Noted Date Diagnosed Date [...] Encounters Date Type Department Care Team Description 04/04/2025 [facility]ill [facility] [address] [place] [phone] Maria Esther Godwin MBBS Refill Request (Testosterone) 02/24/2025 [facility]ill [facility] [address] [place] [phone] Maria Esther Godwin MBBS Refill Request (Testosterone) from Last 3 Months Immunizations Immunization Administration Dates Next Due Influenza [...] on file 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 Gender Identity Not on file Sexual Orientation [...] [facility] [address] [place] [phone] Maria Esther Godwin MBBS [address] [place] [address] Health Maintenance Due Date Last Done Comments Depression screening for age 12+ 1970 Hepatitis C screening for age 18-79 1976 Pneumococcal series for age 50+ (1 of 2 - PCV) 1977 Colonoscopy through age 75 2003 Tetanus booster 07/12/2022 07/12/2012 Medicare Wellness for age 65+ 2023 COVID-19 vaccine series ( season) 2024 01/03/2021, 12/06/2020 BMI (ht and wt on same day) for age 18+ 12/26/2024 12/27/2023, 01/28/2023, 10/15/2022, Additional history exists Influenza Vaccine (#1) 2025 , 10/03/2019, 06/06/2019, Additional history exists Lipids for age 45-75 04/13/2029 04/13/2024, 12/26/2023, 01/28/2023, Additional history exists RSV vaccine for adults or (1 - 1-dose 75+ series) 2033 Zoster (shingles) series for age 50+ Completed 04/21/2022, 02/13/2022, 04/17/2013 Hepatitis B series for 19+ Aged Out N o longer eligible based on patient's age to complete this topic Procedures Procedure Name Priority Date/Time Associated Diagnosis Comments LIPID PANEL W REFLEX MEASURED LDL Routine 04/13/2024 9:44 AM CDT Hyperlipidemia, unspecified hyperlipidemia type from Last 3 Months or Most Recently Relevant to Health Maintenance Results * (ABNORMAL) LIPID PANEL W REFLEX MEASURED LDL (04/13/2024 9:44 AM CDT) CHOLESTEROL,TOTAL 148 100 - 199 mg/dL 04/13/2024 4:42 PM CDT [facility] Comment: Cholesterol, Total Reference Ranges Desirable <200 mg/dL Borderline 200-239 mg/dL High >=240 mg/dL TRIGLYCERIDES 161(H) <150 mg/dL 04/13/2024 4:42 PM CDT [facility] HDL CHOLESTEROL 47 >40 mg/dL 4:42 PM CDT [facility] NON-HDL CHOLESTEROL 101 <145 mg/dl 04/13/2024 4:42 PM CDT [facility] CHOL/HDL RATIO 3.15 <4.50 04/13/2024 4:42 PM CDT [facility] LDL CHOLESTEROL 69 <=130 mg/dL 04/13/2024 4:42 PM CDT [facility] VLDL CHOLESTEROL 32(H) <=30 mg/dL 04/13/2024 4:42 PM CDT [facility] PROVIDER ORDERED STATUS RANDOM 04/13/2024 4:42 PM T [facility] Blood BLOOD SPECIMEN / Unknown Venipuncture / Unknown 04/13/2024 9:44 AM CDT 04/13/2024 9:44 AM CDT Gem Cho HOUSETRAILER SERVICER CHEMISTRY Final R esult [facility] [address] [place] [address], [place] from Last 3 Months or Most Recently Relevant to Health Maintenance Insurance MEDICARE PB ONLY MEDICARE PART B HB ONLY MEDICARE PART A HB ONLY [facility] MEDICARE SUPPLEMENT Advance Directives * Full Code [...] Code Status Discussion: Not Discussed Care Teams Mold Yard Worker Relationship Specialty Start Date End Date Elbert Sloan MD [address] [place] [address] PCP - General Family Practice 01/26/24 Maria Esther Godwin MBBS [address] [place] [address] Consulting Physician Endocrinology 06/02/24
--- OUTSIDE RECORDS SUMMARY | 2025-04-21 19:08 | XMS_ITS | Clinical Summary ---
Author Organization [facility] Address [address] [place] [address]. [place] [address] Care Team Providers Care Forge Press Operator Name Role Phone No Ref-Primary, Physician [...] on file Legal Sex Male 3:44 AM LANDFILL GAS COLLECTION SYSTEM OPERATOR Gender Identity Not on file Sexual Orientation Not on file Last Filed Vital Signs Vital Sign Reading Time Taken Comments Blood Pressure 118/72 10/08/2022 1:56 PM LANDFILL GAS COLLECTION SYSTEM OPERATOR Pulse - - Temperature - - Respiratory Rate - - Oxygen Saturation - - Inhaled Oxygen Concentration - - Weight 99.8 kg (220 lb) 10/08/2022 1:56 PM LANDFILL GAS COLLECTION SYSTEM OPERATOR Height 180.3 cm (5' 11) 10/08/2022 1:56 PM LANDFILL GAS COLLECTION SYSTEM OPERATOR Body Mass Index 30.68 10/08/2022 1:56 PM LANDFILL GAS COLLECTION SYSTEM OPERATOR Plan of Treatment Health Maintenance Due Date Last Done Comments ADVANCE CARE PLANNING 1958 ANNUAL REVIEW OF HM ORDERS 1958 CT COLONOGRAPHY 1958 DIABETES SCREENING 1958 FIT 1958 FLEX SIG 1958 LIPID 1958 sDNA (Cologuard) 1958 COLONOSCOPY 1968 COLORECTAL CANCER SCREENING 1968 HEPATITIS C SCREENING 1976 PNEUMOCOCCAL VACCINE 50+ YEARS (1 of 1 - PCV) 2008 DTAP/TDAP/TD VACCINE (2 - Td or Tdap) 07/12/2022 07/12/2012 FALL RISK ASSESSMENT 2023 MEDICARE ANNUAL WELLNESS VISIT 2023 COVID-19 VACCINE ( - season) 2024 01/03/2021, 12/06/2020 PHQ-2 (once per calendar year) 2024 INFLUENZA VACCINE (#1) 2025 , 10/03/2019, 06/06/2019, Additional history exists RSV VACCINE (1 - 1-dose 75+ series) 2033 ZOSTER VACCINE Completed 04/21/2022, 01/19, 04/17/2013 HPV VACCINE (No Doses Required) Completed MENINGITIS VACCINE Aged Out No longer eligible based on patient's age to complete this topic Insurance [facility] INDIVIDUAL FAMILY PLANS Care Teams Forge Press Operator Relationship Specialty Start Date End Date No Ref-Primary, Physician PCP - General 10/08/22
[2025-04-21 19:12] VITALS: BP 131/82; PULSE 88; RESP 16; TEMP 36.7; O2SAT 98; BMI 32.1
--- NOTE | 2025-04-21 19:14 | ED.GENADULT ---
HPI - General Adult General Chief complaint: Unspecified Complaint, Adult Stated complaint: Loss of Hearing Time Seen by Provider: 04/21/25 19:13 History of Present Illness HPI narrative: around 1730 was at a wedding when he thinks something got into his ear. states it made him a little dizzy and hard of hearing in L ear. denies any pain. 64-year-old man presenting to the emergency department with concern of not being able to hear out of his left ear and feeling a little dizzy. Was at a wedding and seemed to just turn off suddenly. No trauma. He wonders if maybe something got in there. No headache. No weakness elsewhere. No sense of chest pain or palpitations or lightheadedness or shortness of breath. Has had his ears washed out numerous times. Related Data Home Medications ?Medication ?Instructions ?Recorded ?Confirmed sildenafil (pulm.hypertension) 20 20 mg PO Q24H 05/15/22 01/27/25 mg tablet aspirin 325 mg tablet 325 mg PO QDAY 11/30/22 01/27/25 omeprazole 20 mg capsule,delayed 20 mg PO .Daily 12/10/22 01/27/25 release testosterone 1 pump topical QDAY 11/24/23 01/27/25 Previous Rx's ?Medication ?Instructions ?Recorded rosuvastatin 40 mg tablet 40 mg PO QDAY #90 tabs 11/01/24 Allergies Allergy/AdvReac Type Severity Reaction Status Date / Time morphine Allergy Unknown Verified 04/21/25 19:14 Review of Systems Status of ROS: Reports: 6 or more systems reviewed and unremarkable except as noted in History and below [facility] Medical History Laceration of left hand ?S61.412A - Laceration without foreign body of left hand, initial encounter (ICD-10) Hyperlipidemia (12/04/08) ?E78.5 - Hyperlipidemia, unspecified (ICD-10) ALVARO on CPAP ?G47.33 - Obstructive sleep apnea (adult) (pediatric) (ICD-10) ?Z99.89 - Dependence on other enabling machines and devices (ICD-10) Gastroesophageal reflux disease (12/04/08) ?K21.9 - Gastro-esophageal reflux disease without esophagitis (ICD-10) Barretts esophagus ?K22.70 - Bassett's esophagus without dysplasia (ICD-10) Male hypogonadism ?E29.1 - Testicular hypofunction (ICD-10) Adenomatous colon polyp ?D12.6 - Benign neoplasm of colon, unspecified (ICD-10) Constipation ?K59.00 - Constipation, unspecified (ICD-10) H/O atrial fibrillation without current medication ?Z86.79 - Personal history of other diseases of the circulatory system (ICD-10) Seborrheic keratosis ?L82.1 - Other seborrheic keratosis (ICD-10) Surgical History S/P TURP ?Z90.79 - Acquired absence of other genital organ(s) (ICD-10) S/P total knee arthroplasty ?Z96.659 - Presence of unspecified artificial knee joint (ICD-10) History of Marie fundoplication (09/03/10) ?Z98.890 - Other specified postprocedural states (ICD-10) History of arthroscopy of knee (12/22/11) ?Z98.890 - Other specified postprocedural states (ICD-10) History of arthroscopic surgery of shoulder ?Z98.890 - Other specified postprocedural states (ICD-10) History of prior ablation treatment ?Z98.890 - Other specified postprocedural states (ICD-10) Status post catheter ablation of atrial fibrillation ?Z98.890 - Other specified postprocedural states (ICD-10) Social History Smoking Status: Never smoker Do you use any of these nicotine containing products: None Second hand tobacco smoke exposure: No How often do you have a drink containing alcohol: 2-4 times a month How many standard drinks containing alcohol do you have on a typical day: 1 or 2 AUDIT-C Alcohol total score: 2 Non-prescribed substance use: denies use service: No Exam Narrative: Exam Narrative: Very pleasant. Cheeks are candida. Head is atraumatic. Breathing easily. Heart in regular rhythm. Neck is supple. Pupils are equal. No nystagmus appreciated. Right here with mild amount soft cerumen line in the canal. Normal TM. Left ear with more significant amount of soft cerumen which has occluded the canal. No foreign body appreciated on initial exam Const: Vital Signs, click to edit/add: Vital Signs - 24 hr 04/21/25 19:12 Temperature 98.1 F Pulse Rate [Pulse Oximeter] 88 Respiratory Rate 16 Blood Pressure [Ri ght Upper Arm] 131/82 Pulse Oximetry 98 Oxygen Delivery Me thod Room Air Documenting provider has reviewed patient's vital signs: yes Course Vital Signs Vital signs: Initial Vital Signs Temperature 98.1 F 04/21/25 19:12 Temperature Source Temporal Artery Scan 04/21/25 19:12 Pulse Rate 88 04/21/25 19:12 Respiratory Rate 16 04/21/25 19:12 Blood Pressure 131/82 04/21/25 19:12 Blood Pressure Mean 98 04/21/25 19:12 Blood Pressure Position Sitting 04/21/25 19:12 Pulse Oximetry 98 04/21/25 19:12 Oxygen Delivery Method Room Air 04/21/25 19:12 Vital Signs Temperature 98.1 F 04/21/25 19:12 Pulse Rate 88 04/21/25 19:12 Respiratory Rate 16 04/21/25 19:12 Blood Pressure 131/82 04/21/25 19:12 Pulse Oximetry 98 04/21/25 19:12 Oxygen Delivery Method Room Air 04/21/25 19:12 Temperature 98.1 F 04/21/25 19:12 Pulse Rate 88 04/21/25 19:12 Respiratory Rate 16 04/21/25 19:12 Blood Pressure 131/82 04/21/25 19:12 Pulse Oximetry 98 04/21/25 19:12 Oxygen Delivery Method Room Air 04/21/25 19:12 Medical Decision Making MDM Narrative Medical decision making narrative: I suspect that this cerumen occlusion is likely the cause of complaint of difficulty hearing and might be contributing to the sense of dizziness. Will attempt to remedy this and if not resolved dig deeper into other causes including CVA or cardiac. Tolerated well with ear curette removal of moderate amount of cerumen from the left ear canal. Appreciable moist pop as broke through the occlusion. Instant improvement in hearing. Other symptoms improved as well. Continued clear out until only slight amount remained. No foreign body appreciated. Left TM also whitish chacko and WNL. Also cleared small amount of cerumen from right ear as requested. Tolerated quite well. Ambulated easily from the emergency department. Medical Records Medical records reviewed: Yes I reviewed the patient's medical records Discharge Plan Discharge Clinical Impression: Impacted cerumen of left ear Patient Disposition: Home, Self-Care Condition: Improved Additional Instructions: Your ear wax looks quite healthy; I would continue usual cares. Prescriptions: No Action sildenafil (pulm.hypertension) 20 mg tablet 20 mg PO Q24H Patient Comments: TAKE 1 TO 5 TABLETS BY MOUTH NEEDED ABOUT 1 HOUR PRIOR TO SEX DO NOT EXCEED 5 TABLETS PER 24 HOURS aspirin 325 mg tablet 325 mg PO QDAY testosterone 20.25 mg/1.25 gram (1.62 %) gel in metered-dose pump 1 pump topical QDAY Rx Instructions: apply 1 pump amount over max area of ONE upper arm and shoulder omeprazole 20 mg capsule,delayed release(DR/EC) 20 mg PO .Daily rosuvastatin 40 mg tablet 40 mg PO QDAY Qty: 90 0RF Follow Up/Referrals: Elbert Sloan MD [Primary Care Provider, Family Practice] Stand Alone Forms: [facility] Info Instructions Procedures Ear Wax Removal Left Ear: Cerumenolytic Used: other (Ear curette) Results: Re-examined: some cerumen remains TM Examination: TM(s) intact, normal appearance Ear Canal Exam: atraumatic Patient Tolerated Procedure: well Technique: ear canal curetted
== END 2025-04-21 19:33 | disposition home or self-care (01) ==
PROVIDERS: Emergency Provider Family Medicine; PCP Family Medicine
DX: H61.22 Impacted cerumen, left ear (principal)
CPT/HCPCS: 69210; 99282; 99284